=== PATIENT | female | born 1980 | race Caucasian/White ===

== ENCOUNTER 2016-06-06 21:24 | Inpatient (IN) | payer BC ==
[2016-06-06] MEDS ORDERED: cloNIDine HCL 0.2 MG TAB PO STA (21:48)
[2016-06-06] MEDS ORDERED: HYDROcodone/APAP 5-325MG 1 EACH TAB PO STA (21:48)
--- NOTE | 2016-06-06 21:52 | ED ---
General Adult HPI - General Source: patient, RN notes reviewed Mode of arrival: ambulatory Limitations: no limitations <North Chambers - Last Filed: 06/06/16 23:37> <Riaz Almaguer - Last Filed: 06/07/16 00:23> - General Chief complaint: Extremity Injury, Upper Stated complaint: dialysis graft Rt arm Time Seen by Provider: 06/06/16 21:36 - History of Present Illness Initial comments: Patient's 35-year-old female who presents emergency room today with a chief complaint of increased pain to the right upper extremity. She does admit to a history of a shunt for dialysis. States she had dialysis performed yesterday. This was no problems. States she had some mild aching in his arm yesterday. States it is increased and throbbing type pain today. Currently rates an 8/10. Patient states she tried to follow-up with her vascular surgeon but was unable to get a hold of them. She does admit that her blood pressure is elevated but she did take her blood pressure medication. She states she does not like coming to Hospital his blood pressure always is high when she comes to Hospital or doctor's office. Patient denies any recent fever, chills, shortness of breath, chest pain, back pain, abdominal pain, nausea or vomiting, numbness or tingling, dysuria or hematuria, constipation or diarrhea, headaches or visual changes, or any other complaints. (North Chambers) - Related Data Home Medications Medication Instructions Recorded Confirmed Omeprazole [PriLOSEC] 20 mg PO DAILY 04/27/14 06/06/16 Furosemide [Lasix] 40 mg PO DAILY 04/06/15 06/06/16 rOPINIRole HCL 0.5 mg PO HS PRN 04/06/15 06/06/16 Carvedilol [Coreg] 12.5 mg PO BID 06/06/16 06/06/16 Levothyroxine Sodium [Synthroid] 300 mcg PO DAILY 06/06/16 06/06/16 rOPINIRole HCL [Requip] 0.5 mg PO TID PRN 06/06/16 06/06/16 rOPINIRole HCL [Requip] 1 mg PO HS PRN 06/06/16 06/06/16 traZODone HCL 50 mg PO HS PRN 06/06/16 06/06/16 Previous Rx's Medication Instructions Recorded Lisinopril [Zestril] 20 mg PO DAILY #1 tab 04/08/15 Allergies Allergy/AdvReac Type Severity Reaction Status Date / Time Sulfa (Sulfonamide Allergy Severe Anaphylaxis Verified 06/06/16 22:04 Antibiotics) Penicillins Allergy Intermediate Rash/Hives/ Verified 06/06/16 22:04 Nausea/Vomi ting Review of Systems ROS Other: All systems not noted in ROS Statement are negative. <North Chambers - Last Filed: 06/06/16 23:37> ROS Other: All systems not noted in ROS Statement are negative. <Riaz Almaguer - Last Filed: 06/07/16 00:23> ROS Statement: Those systems with pertinent positive or pertinent negative responses have been documented in the HPI. Past Medical History Past Medical History: Blood Disorder, Cancer, Diabetes Mellitus, GERD/Reflux, Hyperlipidemia, Hypertension, Pneumonia, Renal Disease, Thyroid Disorder Additional Past Medical History / Comment(s): used to do peritoneal dialysis but had complication where fluid went into lungs, now does hemodialysis Sun-Sun- Sun, hx. 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 THOROCENTESIS June 2014 Past Anesthesia/Blood Transfusion Reactions: Motion Sickness, Postoperative Nausea & Vomiting (PONV) Past Psychological History: Anxiety Additional Psychological History / Comment(s): XANAX NEEDED Smoking Status: Never smoker Past Alcohol Use History: None Reported Past Drug Use History: None Reported - Past Family History Father Family Medical History: Coronary Artery Disease (CAD), Diabetes Mellitus, Myocardial Infarction ([place]) Additional Family Medical History / Comment(s): AT AGE 59-[place] Mother Family Medical History: Diabetes Mellitus <North Chambers - Last Filed: 06/06/16 23:37> General Exam Limitations: no limitations <North Chambers - Last Filed: 06/06/16 23:37> General appearance: alert, in no apparent distress Head exam: Present: atraumatic, normocephalic, normal inspection Eye exam: Present: normal appearance, PERRL, EOMI. Absent: scleral icterus, conjunctival injection, periorbital swelling ENT exam: Present: normal exam, mucous membranes moist Neck exam: Present: normal inspection. Absent: tenderness, meningismus, lymphadenopathy Respiratory exam: Present: normal lung sounds bilaterally. Absent: respiratory distress, wheezes, rales, rhonchi, stridor Cardiovascular Exam: Present: regular rate, normal rhythm, normal heart sounds. Absent: systolic murmur, diastolic murmur, rubs, gallop, clicks GI/Abdominal exam: Present: soft, normal bowel sounds. Absent: distended, tenderness, guarding, rebound, rigid Extremities exam: Present: normal inspection, full ROM, normal capillary refill. Absent: tenderness, pedal edema, joint swelling, calf tenderness Back exam: Present: normal inspection Neurological exam: Present: alert, oriented X3, CN II-XII intact Psychiatric exam: Present: normal affect, normal mood Skin exam: Present: warm, dry, intact, normal color. Absent: rash <Riaz Almaguer - Last Filed: 06/07/16 00:23> - General Exam Comments Initial Comments: General: The patient is awake and alert, in no distress, and does not appear acutely ill. Eye: Pupils are equal, round and reactive to light, extra-ocular movements are intact. No nystagmus. There is normal conjunctiva bilaterally. No signs of icterus. Ears, nose, mouth and throat: There are moist mucous membranes and no oral lesions. Neck: The neck is supple, there is no tenderness or JVD. Cardiovascular: There is a regular rate and rhythm. No murmur, rub or gallop is appreciated. Respiratory: Lungs are clear to auscultation, respirations are non-labored, breath sounds are equal. No wheezes, stridor, rales, or rhonchi. Gastrointestinal: Soft, non-distended, non-tender abdomen without masses or organomegaly noted. There is no rebound or guarding present. No CVA tenderness. Bowel sounds are unremarkable. Musculoskeletal: Normal ROM, no tenderness. Strength 5/5. Sensation intact. Pulses equal bilaterally 2+. Neurological: A&O x 3. CN II-XII intact, There are no obvious motor or sensory deficits. Coordination appears grossly intact. Speech is normal. Skin: There is mild redness around the shunt straight to the volar aspect of the right forearm. There is no lymphangitic streaking. Mild warmth to the area. Psychiatric: Cooperative, appropriate mood & affect, normal judgment. (North Chambers) Course <North Chambers - Last Filed: 06/06/16 23:37> <Riaz Almaguer - Last Filed: 06/07/16 00:23> Vital Signs 06/06/16 06/06/16 06/06/16 21:29 21:58 22:19 Temperature 98.4 F Pulse Rate 74 73 82 Respiratory 20 18 16 Rate Blood Pressure 240/105 202/83 196/83 O2 Sat by Pulse 97 99 98 Oximetry 06/06/16 23:15 Temperature Pulse Rate 84 Respiratory 16 Rate Blood Pressure 177/78 O2 Sat by Pulse 99 Oximetry - Reevaluation(s) Reevaluation #1: 06/07/16 00:23 Patient is currently in no distress (Riaz Almaguer) Medical Decision Making <North Chambers - Last Filed: 06/06/16 23:37> <Riaz Almaguer - Last Filed: 06/07/16 00:23> - Medical Decision Making Case discussed in detail with attending physician Dr. Almaguer. Patient's ultrasound of the right upper extremity does show evidence for a blood clot. Patient will be started on heparin here in the emergency room. Will be admitted to classified copy control clerk Dr. Hills she just sees a retort setter. Nephrology will be consult along with vascular surgeon. Patient wear the plan states understanding. (North Chambers) 35-year-old year for evaluation fistula pain. Redness. Patient possibly has DVT of that extremity, patient will be admitted for both vascular nephrology evaluate. (Riaz Almaguer) Disposition Time of Disposition: 23:39 <North Chambers - Last Filed: 06/06/16 23:37> <Riaz Almaguer - Last Filed: 06/07/16 00:23> Clinical Impression: DVT (deep venous thrombosis) Disposition: ADMITTED IP TO THIS [facility] Condition: Stable Referrals: None,Stated [Primary Care Provider] - 1-2 days
[2016-06-06] MEDS ORDERED: cloNIDine HCL 0.1 MG TAB PO STA (22:01)
--- NOTE | 2016-06-06 23:13 | US ---
EXAM: US Duplex Right Upper Extremity Veins CLINICAL HISTORY: Reason: Pain TECHNIQUE: Real-time ultrasound scan of the veins of the right upper extremity with color Doppler flow, spectral waveform analysis and compression. COMPARISON: No relevant prior studies available. FINDINGS: Deep veins: Unremarkable. No DVT in the internal jugular, subclavian, axillary, or brachial veins. The veins are compressible with normal color flow and augmentation. Superficial veins: There is occlusive thrombus seen within the cephalic vein, at and extending superior and inferior to the AV graft that itself appears to be patent where imaged. Soft tissues: No acute findings. IMPRESSION: Occlusive thrombosis of the cephalic vein at and extending superior and inferior to the level of the AV graft. [employer] 06/06/16 23:18 Call Doctor Regarding Above results, called Dr. Hui on 06/06 23:18 (-04:00)
[2016-06-06 23:15] VITALS: RESP 16
[2016-06-06] MEDS ORDERED: HEPARIN SODIUM,PORCINE 5,000 UNIT/ML 1 ML VIAL IV STA (23:33)
[2016-06-06] MEDS ORDERED: HYDROmorphone 1 MG/ML 1 ML SYRINGE IV PRN (23:41)
[2016-06-06] MEDS ORDERED: ONDANSETRON 4 MG/2 ML VIAL IVP PRN (23:41)
[2016-06-06] MEDS ORDERED: HYDROcodone/APAP 5-325MG 1 EACH TAB PO PRN (23:41)
[2016-06-06] MEDS ORDERED: SODIUM CHLORIDE 0.9% 1,000 ML IV ONE (23:41)
[2016-06-06] MEDS ORDERED: NALOXONE 0.4 MG/ML 1 ML VIAL IV PRN (23:41)
[2016-06-06] MEDS ORDERED: ACETAMINOPHEN TAB 325 MG TAB PO PRN (23:41)
[2016-06-07 00:16] LABS: Potassium 4.5 mmol/L (3.5-5.1); Total Bilirubin 1.7 mg/dL (0.2-1.3); Total Protein 7.2 g/dL (6.3-8.2)
[2016-06-07 00:21] LABS: Basophils % (A) 1 %; CH 30.5; CHCM 33.7; Eosinophils # (A) 0.1 k/uL (0-0.7); Eosinophils % (A) 4 %; HCT 27.4 % (34.0-46.0); HDW 3.48; HGB 9.4 gm/dL (11.4-16.0); Luc # (Auto) 0.07; Luc % (Auto) 3; Lymphocytes # (A) 0.3 k/uL (1.0-4.8); Lymphocytes % (A) 10 %; MCH 31.2 pg (25.0-35.0); MCHC 34.5 g/dL (31.0-37.0); MCV 90.6 fL (80.0-100.0); Mean Platelet Volume 8.8; Monocytes # (A) 0.2 k/uL (0-1.0); Monocytes % (A) 7 %; Neutrophils # (A) 2.1 k/uL (1.3-7.7); Neutrophils % (A) 77 %; Poikilocytosis Slight; RBC 3.02 m/uL (3.80-5.40); RDW 15.3 % (11.5-15.5); WBC 2.7 k/uL (3.8-10.6); WBC (Perox) 2.77
[2016-06-07 00:23] LABS: INR 1.1 (<1.1); Partial Thromboplastin Time 24.7 sec (22.0-30.0); Prothrombin Time 11.2 sec (9.0-12.0)
[2016-06-07] MEDS: HEPARIN SODIUM,PORCINE/D5W PMX 25,000 UNIT in DEXTROSE/WATER 1 500ML.BAG IV SCH ×2 (01:06→01:44)
[2016-06-07 07:57] VITALS: BP 172/84; PULSE 62; TEMP 97.1
[2016-06-07 09:28] LABS: Basophils % (A) 0 %; CH 29.6; CHCM 32.1; Eosinophils # (A) 0.1 k/uL (0-0.7); Eosinophils % (A) 5 %; HCT 29.7 % (34.0-46.0); HDW 3.32; HGB 9.8 gm/dL (11.4-16.0); Hypochromasia Slight; Luc # (Auto) 0.08; Luc % (Auto) 4; Lymphocytes # (A) 0.2 k/uL (1.0-4.8); Lymphocytes % (A) 12 %; MCH 30.5 pg (25.0-35.0); MCHC 32.9 g/dL (31.0-37.0); MCV 92.5 fL (80.0-100.0); Mean Platelet Volume 7.7; Monocytes # (A) 0.2 k/uL (0-1.0); Monocytes % (A) 8 %; Neutrophils # (A) 1.5 k/uL (1.3-7.7); Neutrophils % (A) 71 %; RBC 3.21 m/uL (3.80-5.40); RDW 15.4 % (11.5-15.5); WBC 2.1 k/uL (3.8-10.6); WBC (Perox) 2.13
[2016-06-07 09:48] LABS: Calcium 8.3 mg/dL (8.4-10.2); Potassium 4.9 mmol/L (3.5-5.1); Total Bilirubin 1.8 mg/dL (0.2-1.3); Total Protein 7.4 g/dL (6.3-8.2)
--- NOTE | 2016-06-07 10:42 | CONS ---
DATE OF CONSULTATION: 06/07/2016 Patient came to the emergency room last night with history of discomfort and pain right upper arm. This patient had a fistula placed about 3 years ago at [facility]. She has been coming to dialysis in [place]. MEDICAL HISTORY: History of chronic renal failure, history of multiple myeloma in the past and patient had a bone marrow transplant. On examination, patient was seen in her room. Her neck is supple. Trachea central. Chest clear. ABDOMEN: Soft. The patient has a loop [place] graft right forearm. There is a good thrill present. The patient had ultrasound which showed there is a clot in the cephalic vein. We will discuss with nephrology. INEZ
[2016-06-07] MEDS ORDERED: traZODone HCL 50 MG TAB PO PRN (11:34)
[2016-06-07] MEDS ORDERED: CARVEDILOL 12.5 MG TAB PO SCH (11:45)
[2016-06-07] MEDS ORDERED: LISINOPRIL 20 MG TAB PO SCH (11:45)
[2016-06-07] MEDS ORDERED: FUROSEMIDE 40 MG TAB PO SCH (11:45)
[2016-06-07] MEDS ORDERED: LEVOTHYROXINE 100 MCG TAB PO SCH (11:45)
[2016-06-07] MEDS ORDERED: PANTOPRAZOLE 40 MG TABLET PO SCH (12:00)
--- NOTE | 2016-06-07 14:42 | P.DS ---
Providers Date of admission: 06/07/16 00:47 Expected date of discharge: 06/07/16 Attending physician: Grupo Cherry Primary care physician: Stated None Hospital Course: Patient's 35-year-old female who presents emergency room today with a chief complaint of increased pain to the right upper extremity. She does admit to a history of a shunt for dialysis. States she had dialysis performed yesterday. This was no problems. States she had some mild aching in his arm yesterday. States it is increased and throbbing type pain today. Currently rates an 8/10. Patient states she tried to follow-up with her vascular surgeon but was unable to get a hold of them. She does admit that her blood pressure is elevated but she did take her blood pressure medication. She states she does not like coming to Hospital her blood pressure always is high when she comes to Hospital or doctor's office pressure was elevated in the emergency room 240/105 Patient denies any recent fever, chills, shortness of breath, chest pain, back pain, abdominal pain, nausea or vomiting, numbness or tingling, dysuria or hematuria, constipation or diarrhea, headaches or visual changes, or any other complaints. Patient additionally seen by Dr. Mainor french. Ultrasound was obtained of the right forearm in which a good thrill was present. The ultrasound did show a clot in the cephalic vein Patient had a fistula placed about 3 years ago at [facility]. Patient had been coming to [facility]. Patient has a history of chronic renal failure. 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 Luz Martin nurse practitioner acting as a scribe for dr cherry Patient Condition at Discharge: Stable Plan - Discharge Summary Discharge Medication List Omeprazole [PriLOSEC] 20 mg PO DAILY 04/27/14 [History] Furosemide [Lasix] 40 mg PO DAILY 04/06/15 [History] rOPINIRole HCL 0.5 mg PO HS PRN 04/06/15 [History] Lisinopril [Zestril] 20 mg PO DAILY #1 tab 04/08/15 [Rx] Carvedilol [Coreg*] 12.5 mg PO BID 06/06/16 [History] Levothyroxine Sodium [Synthroid] 300 mcg PO DAILY 06/06/16 [History] rOPINIRole HCL [Requip] 0.5 mg PO TID PRN 06/06/16 [History] rOPINIRole HCL [Requip] 1 mg PO HS PRN 06/06/16 [History] traZODone HCL 50 mg PO HS PRN 06/06/16 [History] Follow up Appointment(s)/Referral(s): None,Stated [Primary Care Provider] - 1-2 days Discharge Disposition: DC/TRNS INTERMEDIATE CARE FAC
--- NOTE | 2016-06-07 16:13 | HP ---
DATE OF ADMISSION: CHIEF COMPLAINT: Clot in the right arm. HISTORY OF PRESENT ILLNESS: This is another admission for this 35-year-old white female. She is not a regular patient. She apparently has amyloidosis which has resulted in renal failure. She is on dialysis. She noticed some pain, swelling and hardness in the right antecubital space and came to the emergency room, where she was found to have a phlebitis or clot in the right arm. She is due for dialysis today. She has had 6 pregnancies, 2 children and 4 miscarriages. REVIEW OF SYSTEMS: She has had no headaches, chest pain, shortness of breath, abdominal pain, nausea, vomiting, diarrhea, melena, etc. Past medical history, family history, and personal and social histories reveal she is ALLERGIC TO PENICILLIN AND SULFA. MEDICATIONS: 1. Prilosec. 2. Lisinopril. 3. Carvedilol. 4. Lasix. 5. Thyroid. SURGERIES: 1. T&A. 2. Thoracentesis. 3. Thyroidectomy. 4. Two C-sections. 5. Stem cell transplant. She does not smoke. She drinks only occasionally. Her primary disease is amyloidosis. PHYSICAL EXAMINATION: Blood pressure is 103/56 with a pulse of 88, respirations of 35, and she is afebrile. In general she appears to be chronically ill. Lymph nodes are not enlarged. Head, ears, eyes, nose, mouth and throat are normal. Neck veins are not distended. Thyroid is not enlarged. Chest is clear. Cardiac exam demonstrates what sounds like sinus rhythm. No murmurs or extra sounds. Abdomen is soft, nontender. Extremities are normal except for the right arm, where she has a shunt. It is not clear exactly where this clot is clinically, but it may be in the antecubital space. IMPRESSION: 1. Thrombosed dialysis shunt in the right arm. 2. Amyloidosis. PLAN: Consult with Vascular Surgery and Nephrology.
--- NOTE | 2016-06-08 07:15 | CONS ---
DATE OF CONSULTATION: REASON FOR CONSULT: Endstage renal disease. HISTORY OF PRESENT ILLNESS: Patient is a 35-year-old female with history of endstage renal disease on hemodialysis on a Sunday, Sunday, Sunday schedule. She was admitted to the hospital with pain in her right arm which is her access arm. Pain started 2 days ago and progressively worsened and therefore, patient came in to the hospital. She had venous Dopplers done of her left arm which showed occluded thrombosis of the cephalic vein at the level of the AV graft. Patient's vascular surgeon is Dr. Marilyn De La Vega out of [facility] and she will be transferred there for vascular care. PAST MEDICAL HISTORY: Endstage renal disease, history of amyloidosis, status post chemotherapy and stem-cell transplant, history of thyroid cancer, metabolic bone disease. PAST SURGICAL HISTORY: Adenoidectomy, , tonsillectomy, kidney mass biopsy, thyroidectomy, ovarian cyst surgery, thoracentesis, PD catheter placement and removal, AV graft in the right arm. Social history is negative for smoking, drug abuse or alcohol abuse. REVIEW OF SYSTEMS: As per HPI. Other systems negative. On examination, patient is comfortable, awake, alert, oriented x3. She is not in any acute distress. BARREL LOADER exam is grossly intact. Labs show sodium 138, potassium 4.9, BUN 70, serum creatinine 7.29, hemoglobin 9.8 g/dL, platelet cell count 28,000. ASSESSMENT: 1. End-stage renal disease on hemodialysis on a Sunday, Sunday, Sunday schedule. Patient will be dialyzed once she has been evaluated by Vascular Surgery from her AV graft standpoint. 2. Pain in her right arm, which is the access arm with evidence of thrombosis in the cephalic vein on venous Dopplers. Patient will be transferred to [facility] for evaluation by her primary vascular surgeon who is Dr. De La Vega. 3. Thrombocytopenia, which is chronic. 4. Amyloidosis, status post stem-cell transplant. Awaiting kidney transplant. PLAN: Transfer patient to [facility].
--- NOTE | 2016-06-08 07:24 | DS ---
DATE OF ADMISSION: 06/07/2016 DATE OF DISCHARGE: 06/07/2016 This patient was admitted to the hospital with thrombosis in the right arm as part of her fistula for her dialysis. She was assessed and it was determined that she should be transferred back to [place] for surgical intervention and possible thrombectomy. The arrangements were made by the nurse practitioner and she was transferred down the afternoon of the .
== END 2016-06-07 15:48 | disposition short-term general hospital (02) | DRG 314 ==
LOC: EC 21:24 → 4MS4W 06-07 00:47
PROVIDERS: ADMIT Family Medicine; ATTEND Family Medicine
DX: T82.868A Thrombosis due to vascular prosthetic devices, implants and grafts, initial encounter (principal); N18.6 End stage renal disease; I12.0 Hypertensive chronic kidney disease with stage 5 chronic kidney disease or end stage renal disease; E85.9 Amyloidosis, unspecified; Z94.84 Stem cells transplant status; Z76.82 Awaiting organ transplant status; E11.22 Type 2 diabetes mellitus with diabetic chronic kidney disease; D69.6 Thrombocytopenia, unspecified; E78.5 Hyperlipidemia, unspecified; F41.9 Anxiety disorder, unspecified; K21.9 Gastro-esophageal reflux disease without esophagitis; E07.9 Disorder of thyroid, unspecified; Z92.21 Personal history of antineoplastic chemotherapy; Z99.2 Dependence on renal dialysis; Z82.49 Family history of ischemic heart disease and other diseases of the circulatory system; Z79.899 Other long term (current) drug therapy; Z85.850 Personal history of malignant neoplasm of thyroid; Z85.79 Personal history of other malignant neoplasms of lymphoid, hematopoietic and related tissues; Y84.1 Kidney dialysis as the cause of abnormal reaction of the patient, or of later complication, without mention of misadventure at the time of the procedure; Y92.009 Unspecified place in unspecified non-institutional (private) residence as the place of occurrence of the external cause
CPT/HCPCS: 36415; 80053; 85025; 85610; 85730

== ENCOUNTER 2016-07-30 00:11 | Inpatient (IN) | payer BC ==
[2016-07-30] MEDS ORDERED: PANTOPRAZOLE 40 MG/10 ML VIAL IVP STA (01:05)
--- NOTE | 2016-07-30 01:08 | ED ---
General Adult HPI - General Chief complaint: GI Bleed Stated complaint: Blood in Vomit & Stool Time Seen by Provider: 07/30/16 00:50 Source: patient, RN notes reviewed Mode of arrival: ambulatory Limitations: no limitations - History of Present Illness Initial comments: Patient is a pleasant 35-year-old female presenting to the emergency department for concerns regarding GI bleed. Patient did have one episode of bloody emesis with clots and has had 3 episodes of bloody diarrhea with clots. No abdominal pain. Patient had mild nausea earlier however that has resolved. 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 No weakness or fatigue. No dyspnea. - Related Data Home Medications Medication Instructions Recorded Confirmed Omeprazole [PriLOSEC] 20 mg PO DAILY 04/27/14 06/06/16 Furosemide [Lasix] 40 mg PO DAILY 04/06/15 06/06/16 rOPINIRole HCL 0.5 mg PO HS PRN 04/06/15 06/06/16 Carvedilol [Coreg*] 12.5 mg PO BID 06/06/16 06/06/16 Levothyroxine Sodium [Synthroid] 300 mcg PO DAILY 06/06/16 06/06/16 rOPINIRole HCL [Requip] 0.5 mg PO TID PRN 06/06/16 06/06/16 rOPINIRole HCL [Requip] 1 mg PO HS PRN 06/06/16 06/06/16 traZODone HCL 50 mg PO HS PRN 06/06/16 06/06/16 Previous Rx's Medication Instructions Recorded Lisinopril [Zestril] 20 mg PO DAILY #1 tab 04/08/15 Allergies Allergy/AdvReac Type Severity Reaction Status Date / Time Sulfa (Sulfonamide Allergy Severe Anaphylaxis Verified 07/30/16 00:17 Antibiotics) Penicillins Allergy Intermediate Rash/Hives/ Verified 07/30/16 00:17 Nausea/Vomi ting Review of Systems ROS Statement: Those systems with pertinent positive or pertinent negative responses have been documented in the HPI. ROS Other: All systems not noted in ROS Statement are negative. Constitutional: Denies: fever Eyes: Denies: eye pain ENT: Denies: ear pain Respiratory: Denies: cough Cardiovascular: Denies: chest pain Endocrine: Denies: fatigue Gastrointestinal: Reports: hematemesis, hematochezia. Denies: abdominal pain Genitourinary: Denies: dysuria Musculoskeletal: Denies: back pain Skin: Denies: rash Neurological: Denies: weakness Past Medical History Past Medical History: Blood Disorder, Cancer, Diabetes Mellitus, GERD/Reflux, Hyperlipidemia, Hypertension, Pneumonia, Renal Disease, Thyroid Disorder Additional Past Medical History / Comment(s): used to do peritoneal dialysis but had complication where fluid went into lungs, now does hemodialysis Sun-Sun- Sun, hx. 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 THOROCENTESIS June 2014 Past Anesthesia/Blood Transfusion Reactions: Motion Sickness, Postoperative Nausea & Vomiting (PONV) Past Psychological History: Anxiety Smoking Status: Never smoker Past Alcohol Use History: None Reported Past Drug Use History: None Reported - Past Family History Father Family Medical History: Coronary Artery Disease (CAD), Diabetes Mellitus, Myocardial Infarction ([place]) Additional Family Medical History / Comment(s): AT AGE 59-[place] Mother Family Medical History: Diabetes Mellitus General Exam Limitations: no limitations General appearance: alert, in no apparent distress Head exam: Present: atraumatic Eye exam: Present: normal appearance, PERRL ENT exam: Present: normal oropharynx Neck exam: Present: normal inspection Respiratory exam: Present: normal lung sounds bilaterally Cardiovascular Exam: Present: regular rate, normal rhythm GI/Abdominal exam: Present: soft. Absent: tenderness Extremities exam: Present: normal inspection Neurological exam: Present: alert Psychiatric exam: Present: normal affect, normal mood Skin exam: Present: normal color Course Vital Signs 07/30/ 00:15 Temperature 98.8 F Pulse Rate 78 Respiratory 20 Rate Blood Pressure 170/73 O2 Sat by Pulse 100 Oximetry Medical Decision Making - Medical Decision Making Patient reevaluated and resting comfortably in bed. Patient updated on results and plan. Case was discussed with Dr. Epstein who will consult. No transfusions at this time. Case also discussed with Dr. Yang, who will admit for medical call with consult for Dr. Silverio - Lab Data Result diagrams: 07/30/16 01:00 07/30/16 01:00 Lab Results 07/30/16 07/30/16 07/30/16 Range/Units 01:00 01:00 01:00 WBC 2.8 L (3.8-10.6) k/uL RBC 2.75 L (3.80-5.40) m/uL Hgb 8.0 L D (11.4-16.0) gm/dL Hct 24.5 L (34.0-46.0) % MCV 89.2 (80.0-100.0) fL MCH 29.2 (25.0-35.0) pg MCHC 32.7 (31.0-37.0) g/dL RDW 17.0 H (11.5-15.5) % Plt Count 33 L* (150-450) k/uL Neutrophils % 82 % Lymphocytes % 9 % Monocytes % 5 % Eosinophils % 2 % Basophils % 1 % Neutrophils # 2.3 (1.3-7.7) k/uL Lymphocytes # 0.3 L (1.0-4.8) k/uL Monocytes # 0.1 (0-1.0) k/uL Eosinophils # 0.1 (0-0.7) k/uL Basophils # 0.0 (0-0.2) k/uL Manual Slide Review Performed Hypochromasia Slight Poikilocytosis Slight Anisocytosis Slight PT (9.0-12.0) sec INR (<1.1) APTT (22.0-30.0) sec Sodium 137 (137-145) mmol/L Potassium 5.9 H (3.5-5.1) mmol/L Chloride 97 L (98-107) mmol/L Carbon Dioxide 26 (22-30) mmol/L Anion Gap 14 mmol/L BUN 60 H (7-17) mg/dL Creatinine 5.80 H* (0.52-1.04) mg/dL Est GFR (MDRD) Af Amer 10 (>60 ml/min/1.73 sqM) Est GFR (MDRD) Non-Af 8 (>60 ml/min/1.73 sqM) Glucose 184 H (74-99) mg/dL Calcium 7.8 L (8.4-10.2) mg/dL Total Bilirubin 1.4 H (0.2-1.3) mg/dL AST 32 (14-36) U/L ALT 41 (9-52) U/L Alkaline Phosphatase 197 H (38-126) U/L Total Creatine Kinase 33 (30-135) U/L Total Protein 6.6 (6.3-8.2) g/dL Albumin 3.5 (3.5-5.0) g/dL Blood Type Blood Type Recheck Antibody Screen Spec Expiration Date 07/30/16 07/30/16 Range/Units 01:00 01:00 WBC (3.8-10.6) k/uL RBC (3.80-5.40) m/uL Hgb (11.4-16.0) gm/dL Hct (34.0-46.0) % MCV (80.0-100.0) fL MCH (25.0-35.0) pg MCHC (31.0-37.0) g/dL RDW (11.5-15.5) % Plt Count (150-450) k/uL Neutrophils % % Lymphocytes % % Monocytes % % Eosinophils % % Basophils % % Neutrophils # (1.3-7.7) k/uL Lymphocytes # (1.0-4.8) k/uL Monocytes # (0-1.0) k/uL Eosinophils # (0-0.7) k/uL Basophils # (0-0.2) k/uL Manual Slide Review Hypochromasia Poikilocytosis Anisocytosis PT 11.8 (9.0-12.0) sec INR 1.2 (<1.1) APTT 24.4 (22.0-30.0) sec Sodium (137-145) mmol/L Potassium (3.5-5.1) mmol/L Chloride (98-107) mmol/L Carbon Dioxide (22-30) mmol/L Anion Gap mmol/L BUN (7-17) mg/dL Creatinine (0.52-1.04) mg/dL Est GFR (MDRD) Af Amer (>60 ml/min/1.73 sqM) Est GFR (MDRD) Non-Af (>60 ml/min/1.73 sqM) Glucose (74-99) mg/dL Calcium (8.4-10.2) mg/dL Total Bilirubin (0.2-1.3) mg/dL AST (14-36) U/L ALT (9-52) U/L Alkaline Phosphatase (38-126) U/L Total Creatine Kinase (30-135) U/L Total Protein (6.3-8.2) g/dL Albumin (3.5-5.0) g/dL Blood Type O Positive Blood Type Recheck No Antibody Screen NEGATIVE Spec Expiration Date 08/02/2016 - 2299 Disposition Clinical Impression: GI hemorrhage Disposition: ADMITTED IP TO THIS HOSP Referrals: None,Stated [Primary Care Provider] - 1-2 days Decision Time: 02:15
[2016-07-30 01:29] LABS: Anisocytosis Slight; Basophils % (A) 1 %; CH 28.5; CHCM 32.1; Eosinophils # (A) 0.1 k/uL (0-0.7); Eosinophils % (A) 2 %; HCT 24.5 % (34.0-46.0); HDW 3.56; Hypochromasia Slight; Luc # (Auto) 0.05; Luc % (Auto) 2; Lymphocytes # (A) 0.3 k/uL (1.0-4.8); Lymphocytes % (A) 9 %; MCH 29.2 pg (25.0-35.0); MCHC 32.7 g/dL (31.0-37.0); MCV 89.2 fL (80.0-100.0); Mean Platelet Volume 8.9; Monocytes # (A) 0.1 k/uL (0-1.0); Monocytes % (A) 5 %; Neutrophils # (A) 2.3 k/uL (1.3-7.7); Neutrophils % (A) 82 %; Poikilocytosis Slight; RBC 2.75 m/uL (3.80-5.40); WBC 2.8 k/uL (3.8-10.6); WBC (Perox) 3.07
[2016-07-30 01:35] LABS: Calcium 7.8 mg/dL (8.4-10.2); INR 1.2 (<1.1); Partial Thromboplastin Time 24.4 sec (22.0-30.0); Potassium 5.9 mmol/L (3.5-5.1); Prothrombin Time 11.8 sec (9.0-12.0); Total Bilirubin 1.4 mg/dL (0.2-1.3); Total Protein 6.6 g/dL (6.3-8.2)
[2016-07-30 02:02] LABS: Manual Review Performed
[2016-07-30 02:15] LABS: Creatine Kinase MB 0.4 ng/mL (0.0-2.4)
[2016-07-30] MEDS ORDERED: NALOXONE 0.4 MG/ML 1 ML VIAL IV PRN (02:15)
[2016-07-30 02:16] LABS: Troponin I 0.04 ng/mL (0.000-0.034)
[2016-07-30 02:23] VITALS: RESP 16
[2016-07-30 03:18] VITALS: BMI 30.2
[2016-07-30] MEDS: SODIUM CHLORIDE 0.9% 1,000 ML IV SCH ×2 (04:25→15:12)
[2016-07-30 07:23] LABS: Anisocytosis Slight; Basophils % (A) 0 %; CH 28.4; CHCM 31.8; Eosinophils # (A) 0.1 k/uL (0-0.7); Eosinophils % (A) 3 %; HCT 21.2 % (34.0-46.0); HDW 3.41; Hypochromasia Slight; Luc # (Auto) 0.06; Luc % (Auto) 2; Lymphocytes # (A) 0.3 k/uL (1.0-4.8); Lymphocytes % (A) 11 %; MCH 29.7 pg (25.0-35.0); MCHC 33.1 g/dL (31.0-37.0); MCV 89.7 fL (80.0-100.0); Monocytes # (A) 0.2 k/uL (0-1.0); Monocytes % (A) 6 %; Neutrophils % (A) 78 %; Poikilocytosis Slight; RBC 2.36 m/uL (3.80-5.40); WBC 2.5 k/uL (3.8-10.6); WBC (Perox) 2.53
[2016-07-30] MEDS: PANTOPRAZOLE 40 MG/10 ML VIAL IV SCH ×2 (09:54→21:37)
[2016-07-30 10:37] LABS: Potassium 5.2 mmol/L (3.5-5.1)
--- NOTE | 2016-07-30 11:05 | P.NPCON ---
History of Present Illness - Reason for Consult end stage renal disease - History of Present Illness Reason for consultation: End-stage renal disease History of present illness: Patient is a 35-year-old female seen in renal consultation for end-stage renal disease. She is maintained on hemodialysis on a Sunday schedule. Patient has history of amyloidosis and has undergone stem cell transplant 2 years ago at [facility] in [place], [place]. Patient states she was feeling well up until yesterday evening when she went to the bathroom and noticed bloody bowel movement. Afterwards she felt nauseous and also developed hematemesis. Her hemoglobin was 8.0 on admission and is down to 7.0 this morning. Her potassium level was also elevated at 5.9 and is 5.2 this morning. She denies any chest pain or shortness of breath. She is currently on a clear liquid diet and is tolerating it well. She had a bowel movement last night which was again bloody in nature. Hemodynamically she is stable. No fever or chills. Vital signs are stable. General: The patient appeared well nourished and normally developed. HEENT: Head exam is unremarkable. Neck is without jugular venous distension. LUNGS: Lungs are clear to auscultation and percussion. Breath sounds decreased. HEART: Rate and Rhythm are regular. First and second heart sounds normal. No murmurs, rubs or gallops. ABDOMEN: Abdominal exam reveals normal bowel sounds. Non-tender and non- distended. No evidence of peritonitis. EXTREMITITES: No clubbing, cyanosis, or edema. Past Medical History Past Medical History: Blood Disorder, Cancer, Diabetes Mellitus, GERD/Reflux, Hyperlipidemia, Hypertension, Pneumonia, Renal Disease, Thyroid Disorder Additional Past Medical History / Comment(s): used to do peritoneal dialysis but had complication where fluid went into lungs, now does hemodialysis Sun-Sun- Sun, hx. 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 THOROCENTESIS June 2014 Past Anesthesia/Blood Transfusion Reactions: Motion Sickness, Postoperative Nausea & Vomiting (PONV) Past Psychological History: Anxiety Additional Psychological History / Comment(s): XANAX NEEDED Smoking Status: Never smoker Past Alcohol Use History: None Reported Past Drug Use History: None Reported - Past Family History Father Family Medical History: Coronary Artery Disease (CAD), Diabetes Mellitus, Myocardial Infarction ([place]) Additional Family Medical History / Comment(s): AT AGE 59-[place] Mother Family Medical History: Diabetes Mellitus Medications and Allergies Home Medications Medication Instructions Recorded Confirmed Type Omeprazole [PriLOSEC] 20 mg PO DAILY 04/27/14 07/30/16 History Furosemide [Lasix] 40 mg PO DAILY 04/06/15 07/30/16 History Carvedilol [Coreg*] 12.5 mg PO BID 06/06/16 07/30/16 History Levothyroxine Sodium [Synthroid] 300 mcg PO DAILY 06/06/16 07/30/16 History rOPINIRole HCL [Requip] 0.5 mg PO TID PRN 06/06/16 07/30/16 History rOPINIRole HCL [Requip] 1 mg PO HS PRN 06/06/16 07/30/16 History traZODone HCL 50 mg PO HS PRN 06/06/16 07/30/16 History Allergies Allergy/AdvReac Type Severity Reaction Status Date / Time Sulfa (Sulfonamide Allergy Severe Anaphylaxis Verified 07/30/16 10:14 Antibiotics) Penicillins Allergy Intermediate Rash/Hives/ Verified 07/30/16 10:14 Nausea/Vomi ting Physical Exam Vitals: Vital Signs Temp Pulse Pulse Resp BP BP Pulse Ox 07/30/16 08:00 82 16 07/30/16 07:00 98 F 82 16 152/77 100 07/30/16 04:22 98.2 F 75 16 157/86 93 L 07/30/16 02:00 97.8 F 73 16 175/79 99 07/30/16 00:15 98.8 F 78 20 170/73 100 Intake and Output 07/29/16 07/30/16 07/30/16 22:59 06:59 14:59 Intake Total 1220 Balance 1220 Intake: Intake, IV Titration 40 Amount Sodium Chloride 0.9% 1, 40 000 ml @ 75 mls/hr IV . [id number] SAKINA Rx#:[id number] Oral 1180 Other: Voiding Method Toilet Toilet # Voids 1 1 # Bowel Movements 1 Weight 74.843 kg 74.843 kg Patient Weight 07/31/16 06:59 Weight 74.843 kg Results - Lab Results Most recent lab results Calcium 7.8 mg/dL (8.4-10.2) L 07/30/16 01:00 07/30/16 06:30 07/30/16 06:30 Assessment and Plan Plan: Assessment: #1. End-stage renal disease maintained on hemodialysis on a Sunday schedule. #2. Acute anemia related to GI bleed. #3. Hyperkalemia secondary to chronic kidney disease and GI bleed. Potassium level 5.2 this morning. #4. Chronic kidney disease mineral bone disease. #5. History of amyloidosis status post stem cell transplant 2 years ago. Plan: Transfuse 1 unit of packed red blood cell today. Hemodialysis tomorrow with goal 2 liters ultrafiltration. Surgery evaluation pending. Continue to monitor hemoglobin. Thank you for the consultation. I will continue to follow the patient with you during her hospital stay.
[2016-07-30] MEDS ORDERED: traZODone HCL 50 MG TAB PO PRN (11:25)
[2016-07-30 12:11] LABS: Total Bilirubin 1.1 mg/dL (0.2-1.3)
[2016-07-30] MEDS: FUROSEMIDE 40 MG TAB PO SCH (12:14)
[2016-07-30] MEDS: CARVEDILOL 12.5 MG TAB PO SCH ×2 (12:14→16:48)
[2016-07-30] MEDS: LEVOTHYROXINE 100 MCG TAB PO SCH (12:14)
--- NOTE | 2016-07-30 12:34 | P.GSCN ---
History of Present Illness Consult date: 07/30/16 Reason for Consult: GI bleed History of present illness: This a 35-year-old female who is admitted to the hospital, complaints of GI bleed. Patient states that she had several large bloody bowel movements yesterday. She also had a small hematemesis yesterday as well. Patient states that she has not any significant bleeding while the hospital. Patient's previous history of stem cell transportation. She has chronic low platelets. Her platelets are 27. Review of Systems - Constitutional Reports as per HPI Past Medical History Past Medical History: Blood Disorder, Cancer, Diabetes Mellitus, GERD/Reflux, Hyperlipidemia, Hypertension, Pneumonia, Renal Disease, Thyroid Disorder Additional Past Medical History / Comment(s): used to do peritoneal dialysis but had complication where fluid went into lungs, now does hemodialysis Sun-Sun- Sun, hx. 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 THOROCENTESIS June 2014 Past Anesthesia/Blood Transfusion Reactions: Motion Sickness, Postoperative Nausea & Vomiting (PONV) Past Psychological History: Anxiety Additional Psychological History / Comment(s): XANAX NEEDED Smoking Status: Never smoker Past Alcohol Use History: None Reported Past Drug Use History: None Reported - Past Family History Father Family Medical History: Coronary Artery Disease (CAD), Diabetes Mellitus, Myocardial Infarction ([place]) Additional Family Medical History / Comment(s): AT AGE 59-[place] Mother Family Medical History: Diabetes Mellitus Medications and Allergies Home Medications Medication Instructions Recorded Confirmed Type Omeprazole [PriLOSEC] 20 mg PO DAILY 04/27/14 07/30/16 History Furosemide [Lasix] 40 mg PO DAILY 04/06/15 07/30/16 History Carvedilol [Coreg*] 12.5 mg PO BID 06/06/16 07/30/16 History Levothyroxine Sodium [Synthroid] 300 mcg PO DAILY 06/06/16 07/30/16 History rOPINIRole HCL [Requip] 0.5 mg PO TID PRN 06/06/16 07/30/16 History rOPINIRole HCL [Requip] 1 mg PO HS PRN 06/06/16 07/30/16 History traZODone HCL 50 mg PO HS PRN 06/06/16 07/30/16 History Allergies Allergy/AdvReac Type Severity Reaction Status Date / Time Sulfa (Sulfonamide Allergy Severe Anaphylaxis Verified 07/30/16 10:14 Antibiotics) Penicillins Allergy Intermediate Rash/Hives/ Verified 07/30/16 10:14 Nausea/Vomi ting Surgical - Exam Vital Signs Temp Pulse Resp BP Pulse Ox 98.8 F 78 20 170/73 100 07/30/16 00:15 07/30/16 00:15 07/30/16 00:15 07/30/16 00:15 07/30/16 00:15 - General well developed, no distress - Eyes PERRL - ENT normal pinna - Neck no masses - Respiratory normal expansion - Cardiovascular Rhythm: regular - Abdomen Abdomen: soft, non tender Results - Labs 07/30/16 06:30 07/30/16 06:30 Abnormal Lab Results - Last 24 Hours (Table) 07/30/16 07/30/16 07/30/16 Range/Units 01:00 01:00 01:00 WBC 2.8 L (3.8-10.6) k/uL RBC 2.75 L (3.80-5.40) m/uL Hgb 8.0 L D (11.4-16.0) gm/dL Hct 24.5 L (34.0-46.0) % RDW 17.0 H (11.5-15.5) % Plt Count 33 L* (150-450) k/uL Lymphocytes # 0.3 L (1.0-4.8) k/uL Potassium 5.9 H (3.5-5.1) mmol/L Chloride 97 L (98-107) mmol/L BUN 60 H (7-17) mg/dL Creatinine 5.80 H* (0.52-1.04) mg/dL Glucose 184 H (74-99) mg/dL Calcium 7.8 L (8.4-10.2) mg/dL Total Bilirubin 1.4 H (0.2-1.3) mg/dL Alkaline Phosphatase 197 H (38-126) U/L Troponin I 0.040 H* (0.000-0.034) ng/mL Crossmatch 07/30/16 07/30/16 07/30/16 Range/Units 01:00 06:30 06:30 WBC 2.5 L (3.8-10.6) k/uL RBC 2.36 L (3.80-5.40) m/uL Hgb 7.0 L* (11.4-16.0) gm/dL Hct 21.2 L (34.0-46.0) % RDW 17.0 H (11.5-15.5) % Plt Count 27 L* (150-450) k/uL Lymphocytes # 0.3 L (1.0-4.8) k/uL Potassium 5.2 H (3.5-5.1) mmol/L Chloride (98-107) mmol/L BUN (7-17) mg/dL Creatinine (0.52-1.04) mg/dL Glucose (74-99) mg/dL Calcium (8.4-10.2) mg/dL Total Bilirubin (0.2-1.3) mg/dL Alkaline Phosphatase (38-126) U/L Troponin I (0.000-0.034) ng/mL Crossmatch See Detail Diabetes panel 07/30/16 07/30/16 Range/Units 01:00 06:30 Sodium 137 (137-145) mmol/L Potassium 5.9 H 5.2 H (3.5-5.1) mmol/L Chloride 97 L (98-107) mmol/L Carbon Dioxide 26 (22-30) mmol/L BUN 60 H (7-17) mg/dL Creatinine 5.80 H* (0.52-1.04) mg/dL Glucose 184 H (74-99) mg/dL Calcium 7.8 L (8.4-10.2) mg/dL AST 32 (14-36) U/L ALT 41 (9-52) U/L Alkaline Phosphatase 197 H (38-126) U/L Total Protein 6.6 (6.3-8.2) g/dL Albumin 3.5 (3.5-5.0) g/dL Calcium panel 07/30/16 Range/Units 01:00 Calcium 7.8 L (8.4-10.2) mg/dL Albumin 3.5 (3.5-5.0) g/dL Pituitary panel 07/30/16 07/30/16 Range/Units 01:00 06:30 Sodium 137 (137-145) mmol/L Potassium 5.9 H 5.2 H (3.5-5.1) mmol/L Chloride 97 L (98-107) mmol/L Carbon Dioxide 26 (22-30) mmol/L BUN 60 H (7-17) mg/dL Creatinine 5.80 H* (0.52-1.04) mg/dL Glucose 184 H (74-99) mg/dL Calcium 7.8 L (8.4-10.2) mg/dL Adrenal panel 07/30/16 07/30/16 Range/Units 01:00 06:30 Sodium 137 (137-145) mmol/L Potassium 5.9 H 5.2 H (3.5-5.1) mmol/L Chloride 97 L (98-107) mmol/L Carbon Dioxide 26 (22-30) mmol/L BUN 60 H (7-17) mg/dL Creatinine 5.80 H* (0.52-1.04) mg/dL Glucose 184 H (74-99) mg/dL Calcium 7.8 L (8.4-10.2) mg/dL Total Bilirubin 1.4 H (0.2-1.3) mg/dL AST 32 (14-36) U/L ALT 41 (9-52) U/L Alkaline Phosphatase 197 H (38-126) U/L Total Protein 6.6 (6.3-8.2) g/dL Albumin 3.5 (3.5-5.0) g/dL Assessment and Plan Plan: Anel Munroe. Patient will undergo EGD and colonoscopy. She'll receive bowel prep today. I will have a Dr. Epstein address her platelet situation.
[2016-07-31 06:41] LABS: Anisocytosis Slight; Aty Lym Flag Marked; Hypochromasia Moderate; Luc # (Auto) 0.06
[2016-07-31 06:44] LABS: Basophils % (A) 0 %; CH 28.4; CHCM 31.7; Eosinophils # (A) 0.1 k/uL (0-0.7); Eosinophils % (A) 3 %; HCT 21.3 % (34.0-46.0); HDW 3.32; HGB 7.2 gm/dL (11.4-16.0); Luc % (Auto) 2; Lymphocytes # (A) 0.2 k/uL (1.0-4.8); Lymphocytes % (A) 9 %; MCH 30.4 pg (25.0-35.0); MCHC 33.8 g/dL (31.0-37.0); Mean Platelet Volume 7.9; Monocytes # (A) 0.1 k/uL (0-1.0); Monocytes % (A) 5 %; Neutrophils % (A) 81 %; RBC 2.37 m/uL (3.80-5.40); RDW 16.9 % (11.5-15.5); WBC 2.5 k/uL (3.8-10.6); WBC (Perox) 2.68
[2016-07-31 06:48] LABS: Calcium 7.9 mg/dL (8.4-10.2); Potassium 5.3 mmol/L (3.5-5.1); Total Bilirubin 1.6 mg/dL (0.2-1.3); Total Protein 6.1 g/dL (6.3-8.2)
[2016-07-31] MEDS: SODIUM CHLORIDE 0.9% 1,000 ML IV SCH ×2 (07:21→17:06)
[2016-07-31] MEDS: LEVOTHYROXINE 100 MCG TAB PO SCH (07:32)
[2016-07-31] MEDS: CARVEDILOL 12.5 MG TAB PO SCH ×2 (08:00→17:07)
[2016-07-31] MEDS: FUROSEMIDE 40 MG TAB PO SCH (08:00)
[2016-07-31] MEDS: PANTOPRAZOLE 40 MG/10 ML VIAL IV SCH (08:00)
--- NOTE | 2016-07-31 08:20 | HP ---
DATE OF ADMISSION: CHIEF COMPLAINT: A 35-year-old white female who has amyloidosis with renal failure who gets dialysis 3 times a week, developed acute bleeding, large amounts of bright red blood per the rectum. She had underwent a stem cell transplant 2 years ago at [facility]. She felt nauseated and some hematemesis. Hemoglobin dropped down to 7 from 8 on admission. Potassium was elevated to 5.9 to 5.2. She was not having chest pain or shortness breath. She felt better, but still having large amounts of bloody stool here at which time a blood transfusion was ordered. PAST MEDICAL HISTORY: Blood disorder, cancer, diabetes mellitus, GERD, dyslipidemia, hypertension, end-stage renal disease secondary to amyloidosis, hypothyroidism, prior pneumonia, history of thyroid cancer, MTHFR gene, pneumonia in March 2015. SURGERIES: Adenoidectomy, , tonsillectomy, tubal ligation, thyroidectomy, 9 lymph nodes removed 4 were positive for cancer. Ovarian cyst surgery, thoracentesis June 2014, motion sickness, anxiety, never smoked, no alcohol. No illicit drugs. FAMILY HISTORY: Father coronary artery disease, diabetes mellitus, myocardial infarction, at age 59, mother with diabetes mellitus. HOME MEDICATIONS: Prilosec, Lasix, Coreg, Synthroid, Requip, trazodone. ALLERGIES: SULFA AND PENICILLIN. PHYSICAL EXAMINATION: Temperature is 98 to 97, pulse 70s to 80s, respiratory rate is 16 to 20, blood pressure is 170s/70s. O2 99% to 100% on room air. White count is 2.5, hemoglobin 7.0. ASSESSMENT: 1. Acute gastrointestinal bleed, unclear etiology. 2. Amyloidosis. 3. End-stage renal disease. 4. Acute anemia secondary to GI bleed. 5. Hyperkalemia secondary to renal disease and GI bleed. 6. Hypothyroidism. Transfuse 1 unit of packed red blood cells. Get Surgery involved for EGD and colonoscopy. Monitor hemoglobin.
[2016-07-31] MEDS ORDERED: NON-FORMULARY DRUG (Omeprazole [Prilosec] 20 MG) PO SCH (09:00)
[2016-07-31] MEDS ORDERED: LISINOPRIL 20 MG TAB PO SCH (09:00)
[2016-07-31] MEDS ORDERED: DARBEPOETIN ALFA 40 MCG/0.4 ML SYRINGE SQ SCH (11:00)
--- NOTE | 2016-07-31 11:28 | P.PN ---
Subjective 35 year old female seen and examined scheduled today for hemodialysis sitting up in a chair patient is voicing concerns about her platelet count being low currently 25. Patient's initial presentation to the emergency room after patient experienced an episode of having a bright red bloody stool noted bright red blood in the toilet bowl. Additionally patient stated at home she had coffee-ground emesis. Patient states she became concerned and came into the emergency room to be evaluated. Patient does have a history significant for stem cell transplant done 2 years ago at [facility]. Patient states her platelets are always low. Additionally patient has a history of amyloidosis resulting in end-stage renal failure. Patient states that she has not had endoscopic stone in the past and has not had prior episodes of experiencing bloody stool or hematemesis additionally patient gives a history of having thyroid cancer and MTHFR gene. Additionally patient states that she has seen Dr. Ware in the past requesting surgical service from Dr. Ware "any endoscopic need to be done patient stating she is requesting Dr. Ware "hemoglobin on admission was 8 this morning at 7.2 platelets on admission were 33 this morning 25 patient has had no further episodes since admission patient has been seen by Dr. Sepulveda this morning. They recommended giving 5 units of platelets at the time of the endoscopy Objective - Vital Signs Vital signs: Vital Signs Temp 98.1 F 07/31/16 07:00 Pulse 68 07/31/16 07:00 Resp 16 07/31/16 07:00 BP 148/70 07/31/16 07:00 Pulse Ox 99 07/31/16 07:00 Intake & Output 07/30/16 07/31/16 07/31/16 18:59 06:59 18:59 Intake Total 1150 1230 Balance 1150 1230 Weight 74.843 kg 74.843 kg Intake: Intake, IV Titration 750 Amount Sodium Chloride 0.9% 1, 750 000 ml @ 75 mls/hr IV . [id number] [facility] Rx#:[id number] Oral 480 480 Blood Product 620 Rc As-1 Unit 310 [id number] Other 50 Rc As-1 Unit 50 [id number] Other: Voiding Method Toilet Toilet # Voids 3 4 # Bowel Movements 1 - Exam Physical exam Pleasant 35 show female sitting up in a chair denies dizziness lightheadedness chest pain or shortness of breath Lungs essentially clear adequate air movement Heart S1-S2 audible regular Abdomen soft nontender reports no nausea vomiting no stool Extremities no pedal edema - Labs CBC & Chem 7: 07/31/16 06:16 07/31/16 06:16 Labs: Abnormal Lab Results - Last 24 Hours (Table) 07/30/16 07/30/16 07/30/16 Range/Units 01:00 01:00 06:30 WBC (3.8-10.6) k/uL RBC (3.80-5.40) m/uL Hgb 8.0 L D (11.4-16.0) gm/dL Hct (34.0-46.0) % RDW (11.5-15.5) % Plt Count (150-450) k/uL Lymphocytes # (1.0-4.8) k/uL Potassium 5.2 H (3.5-5.1) mmol/L BUN 66 H (7-17) mg/dL Creatinine 6.30 H* (0.52-1.04) mg/dL Glucose 126 H (74-99) mg/dL Calcium 8.0 L (8.4-10.2) mg/dL Total Bilirubin (0.2-1.3) mg/dL Alkaline Phosphatase 152 H (38-126) U/L Total Protein 6.0 L (6.3-8.2) g/dL Albumin 3.0 L (3.5-5.0) g/dL TSH 0.016 L (0.465-4.680) mIU/L Crossmatch See Detail 07/31/16 07/31/16 Range/Units 06:16 06:16 WBC 2.5 L (3.8-10.6) k/uL RBC 2.37 L (3.80-5.40) m/uL Hgb 7.2 L (11.4-16.0) gm/dL Hct 21.3 L (34.0-46.0) % RDW 16.9 H (11.5-15.5) % Plt Count 25 L* (150-450) k/uL Lymphocytes # 0.2 L (1.0-4.8) k/uL Potassium 5.3 H (3.5-5.1) mmol/L BUN 73 H (7-17) mg/dL Creatinine 7.81 H* (0.52-1.04) mg/dL Glucose (74-99) mg/dL Calcium 7.9 L (8.4-10.2) mg/dL Total Bilirubin 1.6 H (0.2-1.3) mg/dL Alkaline Phosphatase 128 H (38-126) U/L Total Protein 6.1 L (6.3-8.2) g/dL Albumin 2.9 L (3.5-5.0) g/dL TSH (0.465-4.680) mIU/L Crossmatch Assessment and Plan Plan: Impression Present on admission acute blood loss anemia suspect GI source Amyloidosis-had stem cell transplant July 2014, End-stage renal disease on hemodialysis History of thyroid cancer 2011 MTHFR gene Hyperkalemia secondary to chronic kidney disease and GI bleed potassium 5.2 Plan Patient received 1 unit of packed red blood cells on the Patient scheduled for hemodialysis today Await surgical eval patient request Dr. Ware Resume home meds as appropriate Continue clear liquid Hematology oncology's recommendations noted to be given at the time of endoscopy Repeat labs in the morning The above impression and plan of care have been discussed and directed by signing physician. Luz Martin nurse practitioner acting as scribe for signing physician.
--- NOTE | 2016-07-31 11:28 | P.PN ---
Subjective Patient is seen in follow-up for end-stage renal disease. She is maintained on hemodialysis on a Sunday schedule. Patient presented with bloody bowel movements. She did receive a blood transfusion on admission and hemoglobin this morning 7.2. She hasn't had any bloody bowel movements in the last 24 hours. Denies chest pain or shortness of breath. Currently resting in bed. No active complaints at this time. Vital signs are stable. General: The patient appeared well nourished and normally developed. HEENT: Head exam is unremarkable. Neck is without jugular venous distension. LUNGS: Lungs are clear to auscultation and percussion. Breath sounds decreased. HEART: Rate and Rhythm are regular. First and second heart sounds normal. No murmurs, rubs or gallops. ABDOMEN: Abdominal exam reveals normal bowel sounds. Non-tender and non- distended. No evidence of peritonitis. EXTREMITITES: No clubbing, cyanosis, or edema. Objective - Vital Signs Vital signs: Vital Signs Temp 98.1 F 07/31/16 07:00 Pulse 68 07/31/16 07:00 Resp 16 07/31/16 07:00 BP 148/70 07/31/16 07:00 Pulse Ox 99 07/31/16 07:00 Intake & Output 07/30/16 07/31/16 07/31/16 18:59 06:59 18:59 Intake Total 1150 1230 Balance 1150 1230 Weight 74.843 kg 74.843 kg Intake: Intake, IV Titration 750 Amount Sodium Chloride 0.9% 1, 750 000 ml @ 75 mls/hr IV . [id number] [facility] Rx#:[id number] Oral 480 480 Blood Product 620 Rc As-1 Unit 310 [id number] Other 50 Rc As-1 Unit 50 [id number] Other: Voiding Method Toilet Toilet # Voids 3 4 # Bowel Movements 1 - Labs CBC & Chem 7: 07/31/16 06:16 07/31/16 06:16 Labs: Abnormal Lab Results - Last 24 Hours (Table) 07/30/16 07/30/16 07/30/16 Range/Units 01:00 01:00 06:30 WBC (3.8-10.6) k/uL RBC (3.80-5.40) m/uL Hgb 8.0 L D (11.4-16.0) gm/dL Hct (34.0-46.0) % RDW (11.5-15.5) % Plt Count (150-450) k/uL Lymphocytes # (1.0-4.8) k/uL Potassium 5.2 H (3.5-5.1) mmol/L BUN 66 H (7-17) mg/dL Creatinine 6.30 H* (0.52-1.04) mg/dL Glucose 126 H (74-99) mg/dL Calcium 8.0 L (8.4-10.2) mg/dL Total Bilirubin (0.2-1.3) mg/dL Alkaline Phosphatase 152 H (38-126) U/L Total Protein 6.0 L (6.3-8.2) g/dL Albumin 3.0 L (3.5-5.0) g/dL TSH 0.016 L (0.465-4.680) mIU/L Crossmatch See Detail 07/31/16 07/31/16 Range/Units 06:16 06:16 WBC 2.5 L (3.8-10.6) k/uL RBC 2.37 L (3.80-5.40) m/uL Hgb 7.2 L (11.4-16.0) gm/dL Hct 21.3 L (34.0-46.0) % RDW 16.9 H (11.5-15.5) % Plt Count 25 L* (150-450) k/uL Lymphocytes # 0.2 L (1.0-4.8) k/uL Potassium 5.3 H (3.5-5.1) mmol/L BUN 73 H (7-17) mg/dL Creatinine 7.81 H* (0.52-1.04) mg/dL Glucose (74-99) mg/dL Calcium 7.9 L (8.4-10.2) mg/dL Total Bilirubin 1.6 H (0.2-1.3) mg/dL Alkaline Phosphatase 128 H (38-126) U/L Total Protein 6.1 L (6.3-8.2) g/dL Albumin 2.9 L (3.5-5.0) g/dL TSH (0.465-4.680) mIU/L Crossmatch Assessment and Plan Plan: Assessment: #1. End-stage renal disease maintained on hemodialysis on a Sunday schedule. #2. Acute anemia related to GI bleed status post 1 unit blood transfusion. #3. Hyperkalemia secondary to chronic kidney disease and GI bleed. Improved since admission. #4. Chronic kidney disease mineral bone disease. #5. History of amyloidosis status post stem cell transplant 2 years ago. Plan: Hemodialysis today with goal 2 liters ultrafiltration. Surgery following. Potential EGD and colonoscopy this admission. Continue to monitor hemoglobin. Start Aranesp.
[2016-07-31 11:34] LABS: Hemoglobin A1C 5.6 % (4.2-6.1)
[2016-07-31 15:07] VITALS: BP 143/68; PULSE 73; TEMP 98.2
--- NOTE | 2016-07-31 16:07 | P.CONS ---
History of Present Illness - Reason for Consult Consult date: 07/31/16 pancytopenia, GI bleed Requesting physician: Jagdish Romano - Chief Complaint GI bleeding, hematemesis - History of Present Illness Ms. Morrow is a very pleasant female pt who is seen by Dr. Sepulveda locally and Dr. Boston out of [facility] in [place]. Her history starts when she went on vacation to [place] 10/19. She developed fatigue, leg swelling, nausea that was persistent so she sought medical attention when she returned home. Work up revealed elevate creatinine, abnormal electrolyte values and low albumin, US showed no GI obstruction, pt underwent kidney biopsy on 12/02/13and this revealed amyloid deposition, hint of kappa restriction though definite free light chains were not detected. Pt was then seen by Dr. Sepulveda for further eval. Bone marrow revealed a monoclonal kappa restricted population of plasma cells, about 12% of total, kappa light chain level was increased with a ratio of 4.48. Bone survey was normal, ECHO showed some dilation of the left atrium, CT showed hepatosplenomegaly. Pt was given a diagnosis of primary light chain amyloidosis, she was referred to [facility]. It was felt that she should be treated as an overt myeloma, given plasma cell percentage > 10%. She was felt to be an appropriate candidate for transplant, she autologous BMT . She did well post transplant. She started hemodialysis 02/18/14, tried CAPD on 05/13/14 but was placed back on HD due to trans- diaphragmmatic leak, she had a AV graft placed in 07/20. Pt follows with Dr. Boston and intermittently with Dr. Sepulveda. She is current on follow up, due for bone marrow in the next 1-2 months. Pt is chronically pancytopenic with further decrease in her counts when she is ill or her body is under stress. Pt states bright red blood on toilet paper and dark, clotted blood in the toilet x 1 day, associated with diarrhea and abd cramping, she also had hematemesis, denies any other bleeding or pain. She has not been ill recently, no fevers, wt. loss, indigestion or heartburn, appetite is good, she has not had vomiting or bloody BM since admission, she denies SOB or chest pain, no other physical c/o on a 10 point ROS. Review of Systems All systems: negative Constitutional: Reports as per HPI Past Medical History Past Medical History: Blood Disorder, Cancer, Diabetes Mellitus, GERD/Reflux, Hyperlipidemia, Hypertension, Pneumonia, Renal Disease, Thyroid Disorder Additional Past Medical History / Comment(s): used to do peritoneal dialysis but had complication where fluid went into lungs, now does hemodialysis Mon-Sun- Sun, hx. 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 THOROCENTESIS June 2014 Past Anesthesia/Blood Transfusion Reactions: Motion Sickness, Postoperative Nausea & Vomiting (PONV) Past Psychological History: Anxiety Additional Psychological History / Comment(s): XANAX NEEDED Smoking Status: Never smoker Past Alcohol Use History: None Reported Past Drug Use History: None Reported - Past Family History Father Family Medical History: Coronary Artery Disease (CAD), Diabetes Mellitus, Myocardial Infarction ([place]) Additional Family Medical History / Comment(s): AT AGE 59-[place] Mother Family Medical History: Diabetes Mellitus Medications and Allergies Home Medications Medication Instructions Recorded Confirmed Type Omeprazole [PriLOSEC] 20 mg PO DAILY 04/27/14 07/30/16 History Furosemide [Lasix] 40 mg PO DAILY 04/06/15 07/30/16 History Carvedilol [Coreg*] 12.5 mg PO BID 06/06/16 07/30/16 History Levothyroxine Sodium [Synthroid] 300 mcg PO DAILY 06/06/16 07/30/16 History rOPINIRole HCL [Requip] 0.5 mg PO TID PRN 06/06/16 07/30/16 History rOPINIRole HCL [Requip] 1 mg PO HS PRN 06/06/16 07/30/16 History traZODone HCL 50 mg PO HS PRN 06/06/16 07/30/16 History Allergies Allergy/AdvReac Type Severity Reaction Status Date / Time Sulfa (Sulfonamide Allergy Severe Anaphylaxis Verified 06/25/17 10:14 Antibiotics) Penicillins Allergy Intermediate Rash/Hives/ Verified 07/30/16 10:14 Nausea/Vomi ting Physical Exam Vitals: Vital Signs Temp Pulse Resp BP Pulse Ox 07/31/16 15:00 98.2 F 73 16 143/68 100 07/31/16 07:00 98.1 F 68 16 148/70 99 07/30/16 22:59 71 16 07/30/16 22:06 98 F 71 16 125/67 100 Intake and Output 07/31/16 07/31/16 07/31/16 06:59 14:59 22:59 Intake Total 750 Balance 750 Intake: Intake, IV Titration 750 Amount Sodium Chloride 0.9% 1, 750 000 ml @ 75 mls/hr IV . [id number] [facility] Rx#:[id number] Other: # Voids 4 - Constitutional General appearance: average body habitus, cooperative, no acute distress - EENT Eyes: anicteric sclerae, PERRLA, normal appearance ENT: hearing grossly normal, normal oropharynx - Neck Neck: no lymphadenopathy - Respiratory Respiratory: bilateral: CTA - Cardiovascular right AC graft visible Heart sounds: normal: S1, S2 leg Peripheral Edema: bilateral: None - Gastrointestinal General gastrointestinal: no absent bowel sounds, no decreased bowel sounds, no distended, no hepatomegaly, no hyperactive bowel sounds, normal bowel sounds, no organomegaly, no rigid, no scaphoid, soft, no splenomegaly, no tenderness, no umbilical hernia, no ventral hernia - Integumentary darken skin color from CKD - Neurologic Neurologic: CNII-XII intact - Musculoskeletal Musculoskeletal: strength equal bilaterally - Psychiatric Psychiatric: A&O x's 3, appropriate affect, intact judgment & insight Results CBC & Chem 7: 07/31/16 06:16 07/31/16 06:16 Labs: Abnormal Lab Results - Last 24 Hours (Table) 07/30/16 07/31/16 07/31/16 Range/Units 01:00 06:16 06:16 WBC 2.5 L (3.8-10.6) k/uL RBC 2.37 L (3.80-5.40) m/uL Hgb 8.0 L D 7.2 L (11.4-16.0) gm/dL Hct 21.3 L (34.0-46.0) % RDW 16.9 H (11.5-15.5) % Plt Count 25 L* (150-450) k/uL Lymphocytes # 0.2 L (1.0-4.8) k/uL Potassium 5.3 H (3.5-5.1) mmol/L BUN 73 H (7-17) mg/dL Creatinine 7.81 H* (0.52-1.04) mg/dL Calcium 7.9 L (8.4-10.2) mg/dL Total Bilirubin 1.6 H (0.2-1.3) mg/dL Alkaline Phosphatase 128 H (38-126) U/L Total Protein 6.1 L (6.3-8.2) g/dL Albumin 2.9 L (3.5-5.0) g/dL Assessment and Plan (1) History of stem cell transplant Narrative/Plan: Pt is due for follow up bone marrow in the near future, this will be planned out patient. Status: Acute (2) Pancytopenia Narrative/Plan: Recommend platelet transfusion just before/at time of endoscopy procedures so that pt has active, circulating platelets in case of need for biopsy, platelets have been ordered to be given just at time of procedure. Pt does have a drop in Hgb from her baseline of around 9-10, she has been ordered a transfusion for the same. Status: Acute
--- NOTE | 2016-07-31 22:28 | P.PN ---
Subjective Principal diagnosis: GI bleeding Patient has had no further bleeding. Denies abdominal pain. She is due for hemodialysis Today she is concerned that she will not be able to take a bowel prep because of the upcoming hemodialysis. Labs from today were reviewed. Objective - Vital Signs Vital signs: Vital Signs Temp 98.2 F 07/31/16 15:00 Pulse 73 07/31/16 15:00 Resp 16 07/31/16 15:00 BP 143/68 07/31/16 15:00 Pulse Ox 100 07/31/16 15:00 Intake & Output 07/31/16 07/31/16 08/01/16 06:59 18:59 06:59 Intake Total 1230 Balance 1230 Weight 74.843 kg Intake: Intake, IV Titration 750 Amount Sodium Chloride 0.9% 1, 750 000 ml @ 75 mls/hr IV . [id number] [facility] Rx#:[id number] Oral 480 Other: Voiding Method Toilet # Voids 4 - Exam Abdomen: Soft, nontender, nondistended - Labs CBC & Chem 7: 07/31/16 06:16 07/31/16 06:16 Labs: Abnormal Lab Results - Last 24 Hours (Table) 07/30/16 07/31/16 07/31/16 Range/Units 01:00 06:16 06:16 WBC 2.5 L (3.8-10.6) k/uL RBC 2.37 L (3.80-5.40) m/uL Hgb 8.0 L D 7.2 L (11.4-16.0) gm/dL Hct 21.3 L (34.0-46.0) % RDW 16.9 H (11.5-15.5) % Plt Count 25 L* (150-450) k/uL Lymphocytes # 0.2 L (1.0-4.8) k/uL Potassium 5.3 H (3.5-5.1) mmol/L BUN 73 H (7-17) mg/dL Creatinine 7.81 H* (0.52-1.04) mg/dL Calcium 7.9 L (8.4-10.2) mg/dL Total Bilirubin 1.6 H (0.2-1.3) mg/dL Alkaline Phosphatase 128 H (38-126) U/L Total Protein 6.1 L (6.3-8.2) g/dL Albumin 2.9 L (3.5-5.0) g/dL Assessment and Plan (1) GI hemorrhage Narrative/Plan: The patient is requesting to be discharged and have her endoscopy performed electively as an outpatient. I discussed We will arrange for upper and lower endoscopy for this coming . One unit of single donor irradiated platelets will be transfused preoperatively. The patient will make her own arrangements for elective hemodialysis Tomorrow. Status: Acute
== END 2016-07-31 18:15 | disposition home or self-care (01) | DRG 377 ==
LOC: EC 00:11 → 5ONC 02:15
PROVIDERS: ADMIT Family Medicine; ATTEND Family Medicine
PROC: 30233N1 Transfusion of Nonautologous Red Blood Cells into Peripheral Vein, Percutaneous Approach (ICD-10-PCS; principal; 2016-07-30)
DX: K92.2 Gastrointestinal hemorrhage, unspecified (principal); N18.6 End stage renal disease; D61.818 Other pancytopenia; E85.9 Amyloidosis, unspecified; I12.0 Hypertensive chronic kidney disease with stage 5 chronic kidney disease or end stage renal disease; D62 Acute posthemorrhagic anemia; E11.22 Type 2 diabetes mellitus with diabetic chronic kidney disease; E87.5 Hyperkalemia; E03.9 Hypothyroidism, unspecified; E78.5 Hyperlipidemia, unspecified; K21.9 Gastro-esophageal reflux disease without esophagitis; F41.9 Anxiety disorder, unspecified; E83.9 Disorder of mineral metabolism, unspecified; Z79.899 Other long term (current) drug therapy; Z85.850 Personal history of malignant neoplasm of thyroid; Z99.2 Dependence on renal dialysis; Z88.0 Allergy status to penicillin; Z88.2 Allergy status to sulfonamides; Z82.49 Family history of ischemic heart disease and other diseases of the circulatory system
CPT/HCPCS: 36415; 80053; 82550; 82553; 83036; 84439; 84443; 84484; 84703; 85025; 85610; 85730; 86850; 86900; 86901; 86920; 96374; 99285

== ENCOUNTER 2016-08-03 09:54 | Day surgery (SDC) | payer BC ==
[2016-08-02 10:56] VITALS: BMI 31.1
[~2016-08-03 09:54] MED LIST: LACTATED RINGERS 1,000 ML IV SCH
[2016-08-03 10:08] VITALS: TEMP 98
[2016-08-03] MEDS ORDERED: LACTATED RINGERS 1,000 ML IV ONE ×2 (10:15→12:35)
[2016-08-03] MEDS ORDERED: LIDOCAINE 1% 20 ML VIAL (10MG/ML) FOR IV START INTRADERMA ONE (10:16)
[2016-08-03 10:35] LABS: Anisocytosis Slight; Basophils % (A) 0 %; CH 29.2; CHCM 33.1; Eosinophils # (A) 0.1 k/uL (0-0.7); Eosinophils % (A) 1 %; HCT 24.7 % (34.0-46.0); HDW 3.68; Hypochromasia Slight; Luc # (Auto) 0.12; Luc % (Auto) 3; Lymphocytes # (A) 0.3 k/uL (1.0-4.8); Lymphocytes % (A) 8 %; MCH 28.8 pg (25.0-35.0); MCHC 32.4 g/dL (31.0-37.0); MCV 88.7 fL (80.0-100.0); Mean Platelet Volume 8.9; Monocytes # (A) 0.3 k/uL (0-1.0); Monocytes % (A) 6 %; Neutrophils # (A) 3.3 k/uL (1.3-7.7); Neutrophils % (A) 81 %; Poikilocytosis Slight; RBC 2.79 m/uL (3.80-5.40); RDW 17.1 % (11.5-15.5); WBC 4.1 k/uL (3.8-10.6); WBC (Perox) 4.07
[2016-08-03] MEDS ORDERED: ONDANSETRON 4 MG/2 ML VIAL IVP ONE (11:00)
[2016-08-03] MEDS ORDERED: LIDOCAINE 1% INJ 10MG/ML (20 ML MDV) ONE (11:56)
[2016-08-03] MEDS ORDERED: PROPOFOL 10 MG/ML 20 ML VIAL IV ONE (11:56)
--- NOTE | 2016-08-03 11:56 | P.GSHP ---
History of Present Illness H&P Date: 08/03/16 Chief Complaint: Rectal bleeding, hematemesis Patient was recently hospitalized with thrombocytopenia along with spontaneous rectal bleeding and hematemesis. She noticed a resolution of her bleeding shortly after arrival. We were consulted for upper and lower endoscopy. The patient wanted to have this performed electively as an outpatient. She took a bowel prep yesterday. Platelet level today was 34 and hemoglobin 8.0. Past Medical History Past Medical History: Blood Disorder, Cancer, GERD/Reflux, Hyperlipidemia, Hypertension, Pneumonia, Renal Disease, Thyroid Disorder Additional Past Medical History / Comment(s): HEMO DYALISIS, THYROID CANCER, 2011, MTHFR GENE, Amyloidosis-had stem cell transplant July 2014, ANEMIA History of Any Multi-Drug Resistant Organisms: None Reported Past Surgical History: Adenoidectomy, Section, Tonsillectomy, Tubal Ligation Additional Past Surgical History / Comment(s): THYROIDECTOMY AND REMOVED 9 LYMPH NODES REMOVED 4 OF WHICH A WERE POSITIVE FOR CA; OVARIAN CYST SURGERY. THOROCENTESIS June 2014 Past Anesthesia/Blood Transfusion Reactions: Motion Sickness, Postoperative Nausea & Vomiting (PONV) Smoking Status: Never smoker - Past Family History Father Family Medical History: Coronary Artery Disease (CAD), Diabetes Mellitus, Myocardial Infarction ([place]) Additional Family Medical History / Comment(s): AT AGE 59-[place] Mother Family Medical History: No Reported History Medications and Allergies Home Medications Medication Instructions Recorded Confirmed Type Omeprazole [PriLOSEC] 20 mg PO DAILY 04/27/14 08/02/16 History Furosemide [Lasix] 40 mg PO DAILY 04/06/15 08/02/16 History Carvedilol [Coreg*] 12.5 mg PO BID 06/06/16 08/02/16 History Levothyroxine Sodium [Synthroid] 300 mcg PO DAILY 06/06/16 08/02/16 History rOPINIRole HCL [Requip] 0.5 mg PO TID PRN 06/06/16 08/02/16 History rOPINIRole HCL [Requip] 1.5 mg PO HS PRN 06/06/16 08/02/16 History traZODone HCL 50 mg PO HS PRN 06/06/16 08/02/16 History Allergies Allergy/AdvReac Type Severity Reaction Status Date / Time Sulfa (Sulfonamide Allergy Severe Anaphylaxis Verified 08/02/16 09:32 Antibiotics) Penicillins Allergy Intermediate Rash/Hives/ Verified 08/02/16 09:32 Nausea/Vomi ting Surgical - Exam Vital Signs Temp Pulse Resp BP Pulse Ox 98.0 F 82 18 143/65 99 08/03/16 10:07 08/03/16 10:07 08/03/16 10:07 08/03/16 10:07 08/03/16 10:07 Physical exam: General: Well-developed, well-nourished HEENT: Normocephalic, sclerae nonicteric Abdomen: Nontender, nondistended Extremities: No edema Neuro: Alert and oriented Results - Labs 08/03/16 10:16 08/03/16 10:16 Abnormal Lab Results - Last 24 Hours (Table) 08/03/16 Range/Units 10:16 RBC 2.79 L (3.80-5.40) m/uL Hgb 8.0 L (11.4-16.0) gm/dL Hct 24.7 L (34.0-46.0) % RDW 17.1 H (11.5-15.5) % Plt Count 34 L* (150-450) k/uL Lymphocytes # 0.3 L (1.0-4.8) k/uL Diabetes panel 08/03/16 Range/Units 10:16 Potassium 4.2 (3.5-5.1) mmol/L Pituitary panel 08/03/16 Range/Units 10:16 Potassium 4.2 (3.5-5.1) mmol/L Adrenal panel 08/03/16 Range/Units 10:16 Potassium 4.2 (3.5-5.1) mmol/L Assessment and Plan (1) GI hemorrhage Narrative/Plan: Will proceed with upper and lower endoscopy at this time. Risks of bleeding and perforation discussed. Status: Acute
[2016-08-03 11:58] LABS: Anisocytosis Slight; Basophils % (A) 0 %; Eosinophils # (A) 0.1 k/uL (0-0.7); Eosinophils % (A) 2 %; HDW 3.67; Hypochromasia Slight; Luc % (Auto) 3; Lymphocytes # (A) 0.3 k/uL (1.0-4.8); Lymphocytes % (A) 7 %; MCH 28.7 pg (25.0-35.0); MCHC 32.4 g/dL (31.0-37.0); MCV 88.5 fL (80.0-100.0); Mean Platelet Volume 9.4; Monocytes # (A) 0.2 k/uL (0-1.0); Monocytes % (A) 5 %; Neutrophils % (A) 84 %; Poikilocytosis Slight; RBC 2.37 m/uL (3.80-5.40); RDW 16.9 % (11.5-15.5); WBC 3.6 k/uL (3.8-10.6); WBC (Perox) 3.67
[2016-08-03 12:00] LABS: HGB 6.8 gm/dL (11.4-16.0)
--- NOTE | 2016-08-03 12:32 | P.PCN ---
Date of Procedure: 08/03/16 Preoperative Diagnosis: Postoperative Diagnosis: Procedure(s) Performed: PREOPERATIVE DIAGNOSIS: GI bleed POSTOPERATIVE DIAGNOSIS: Esophageal varices, hemorrhoids PROCEDURE: 1. EGD 2. Colonoscopy ANESTHESIA: MAC SURGEON: [place] Ware M.D. SPECIMENS: None ENDOSCOPIC PROCEDURE: The patient was on the endoscopy table in the left decubitus position. The Olympus gastroscope was inserted into the oropharynx and passed under direct visualization to the region of the third portion of the duodenum. From that point the scope was slowly withdrawn inspecting all surfaces carefully. There were no neoplastic inflammatory or polypoid lesions throughout the duodenum. The pylorus was widely patent. The stomach was carefully inspected. There was no significant gastritis present. A biopsy of the antrum took place to rule out H. pylori. Retroflexion revealed a normal hiatus. The esophagus was then carefully examined. There was evidence of esophageal varices involving the distal esophagus. No stigmata of recent bleeding noted.. The patient was kept on the endoscopy table in the left decubitus position. The Olympus colonoscope was inserted into the anus and passed under direct visualization to the base of the cecum. The appendiceal orifice was visualized. From that point the scope was slowly withdrawn inspecting all surfaces carefully. There were no neoplastic inflammatory or polypoid lesions throughout the cecum, ascending, transverse, descending, sigmoid and rectum. There was no diverticulosis noted. Digital rectal examination revealed internal and external hemorrhoids. The patient was taken to the recovery room in stable condition per anesthesia guidelines. RECOMMENDATIONS: Resume diet. Will refer to GI as an outpatient for possible variceal banding and workup of portal hypertension. Implants: Indications for Procedure: Operative Findings: Description of Procedure:
[2016-08-03 12:58] VITALS: BP 133/69; PULSE 76; RESP 16
== END 2016-08-03 13:42 | disposition home or self-care (01) ==
LOC: ORWHC2ENDO 09:54
PROVIDERS: ATTEND Surgery
DX: I85.00 Esophageal varices without bleeding (principal); K21.9 Gastro-esophageal reflux disease without esophagitis; I10 Essential (primary) hypertension; E78.5 Hyperlipidemia, unspecified; E07.9 Disorder of thyroid, unspecified; N19 Unspecified kidney failure; E85.9 Amyloidosis, unspecified; Z79.899 Other long term (current) drug therapy; Z88.0 Allergy status to penicillin; Z88.2 Allergy status to sulfonamides
CPT/HCPCS: 81025; 86900; 86901; 84132; 85025; 86850; 45378; 43235; P9035; J2405; J2001; J2704

== ENCOUNTER → 2016-10-05 | Outpatient (CLI) | payer BC ==
--- NOTE | 2016-10-05 12:12 | CT ---
EXAMINATION TYPE: CT abdomen pelvis wo con DATE OF EXAM: 10/05/2016 COMPARISON: Previous study dated 02/09/2014. HISTORY: No complaints at time of scan. Known hepatomegaly CT DLP: 1043 mGycm Automated exposure control for dose reduction was used. FINDINGS: There is scarring present at the right lung base. There is no pleural or pericardial fluid. The heart is enlarged. There is coronary artery and other vascular calcifications. Within the abdomen, the liver is decreased in size from 24 cm to 21 cm. The spleen is increased in si ze from 12 cm to 19.8 cm. The gallbladder is unremarkable. Both adrenal glands are normal. Both kidneys are atrophic. There is no hydronephrosis or nephrolithiasis. The right kidney measures 6 .9 cm in length and the left measures 6.4 cm in length. The pancreas is unremarkable. There is no significant retroperitoneal, iliac or inguinal adenopathy. There is follicular change in both ovaries. The bladder is unremarkable. There is some small bowel thickening in the proximal jejunum. There is no significant diverticular change and there is no radiographic evidence of diverticulitis. The appendix is not visualized. There is a moderate amount of free fluid within the pelvis. No free air is seen. There is minor degenerative disc disease and hypertrophic spondylosis at L2-3. No bony destructive le gonzales is seen. IMPRESSION: 1. HEPATOSPLENOMEGALY. 2. THICKENING OF THE PROXIMAL SMALL BOWEL. PLEASE CORRELATE FOR ENTERITIS. 3. ATROPHIC KIDNEYS. 4. MILD DEGENERATIVE CHANGE WITHIN THE SPINE.
== END | disposition home or self-care (01) ==
LOC: RADCTMAIN 09:59
PROVIDERS: ATTEND Internal Medicine Hematology & Oncology
DX: R16.2 Hepatomegaly with splenomegaly, not elsewhere classified (principal); N26.1 Atrophy of kidney (terminal); E85.9 Amyloidosis, unspecified; Z88.0 Allergy status to penicillin; Z88.2 Allergy status to sulfonamides
CPT/HCPCS: 74176

== ENCOUNTER 2016-10-07 15:12 | Emergency (ER) | payer BC ==
[2016-10-07 15:23] VITALS: BP 197/79; PULSE 81; TEMP 97.9
[2016-10-07] MEDS ORDERED: DIPH,PERTUS(ACELL)TETVAC-LF 0.5 ML VIAL IM ONE (15:30)
[2016-10-07] MEDS ORDERED: CIPROFLOXACIN HCL 500 MG TAB PO STA (15:30)
[2016-10-07] MEDS ORDERED: metroNIDAZOLE 500 MG TAB PO STA (15:30)
--- NOTE | 2016-10-07 15:39 | ED ---
Animal Bite HPI - General Chief Complaint: Animal Bite Stated Complaint: Dog Bite/Face Time Seen by Provider: 10/07/16 15:22 Source: patient, RN notes reviewed, old records reviewed Mode of arrival: ambulatory Limitations: no limitations - History of Present Illness Initial Comments: This is a 35-year-old female presenting to the emergency Department chief complaint of a dog bite to her right lower eye. Patient reports she has a extensive medical history of amyloidosis, and multiple cancers. She reports she has a low platelet count she bruises very easily. She reports that she has a small puncture wound underneath her right eye. He noticed some bruising underneath it. She denies any other injury. Patient reports the bleeding is now well controlled. Patient was sent in here just for further evaluation due to a dog bite needs to place on antibiotic. Patient denies any pain with extra ocular eye movements. Denies any pain with facial movements. - Related Data Home Medications Medication Instructions Recorded Confirmed Omeprazole [PriLOSEC] 20 mg PO DAILY 04/27/14 08/02/16 Furosemide [Lasix] 40 mg PO DAILY 04/06/15 08/02/16 Carvedilol [Coreg*] 12.5 mg PO BID 06/06/16 08/02/16 Levothyroxine Sodium [Synthroid] 300 mcg PO DAILY 06/06/16 08/02/16 rOPINIRole HCL [Requip] 0.5 mg PO TID PRN 06/06/16 08/02/16 rOPINIRole HCL [Requip] 1.5 mg PO HS PRN 06/06/16 08/02/16 traZODone HCL 50 mg PO HS PRN 06/06/16 08/02/16 Previous Rx's Medication Instructions Recorded Lisinopril [Zestril] 20 mg PO DAILY #1 tab 04/08/15 Ciprofloxacin HCl [Cipro] 500 mg PO Q12HR 7 Days 10/07/16 metroNIDAZOLE [Flagyl] 500 mg PO TID 7 Days 10/07/16 Allergies Allergy/AdvReac Type Severity Reaction Status Date / Time Sulfa (Sulfonamide Allergy Severe Anaphylaxis Verified 10/07/16 15:23 Antibiotics) Penicillins Allergy Intermediate Rash/Hives/ Verified 10/07/16 15:23 Nausea/Vomi ting Review of Systems ROS Statement: Those systems with pertinent positive or pertinent negative responses have been documented in the HPI. ROS Other: All systems not noted in ROS Statement are negative. Past Medical History Past Medical History: Blood Disorder, Cancer, GERD/Reflux, Hyperlipidemia, Hypertension, Pneumonia, Renal Disease, Thyroid Disorder Additional Past Medical History / Comment(s): HEMO DYALISIS, THYROID CANCER, 2011, MTHFR GENE, Amyloidosis-had stem cell transplant July 2014, ANEMIA History of Any Multi-Drug Resistant Organisms: None Reported Past Surgical History: Adenoidectomy, Section, Tonsillectomy, Tubal Ligation Additional Past Surgical History / Comment(s): THYROIDECTOMY AND REMOVED 9 LYMPH NODES REMOVED 4 OF WHICH A WERE POSITIVE FOR CA; OVARIAN CYST SURGERY. THOROCENTESIS June 2014, fistula right upper arm Past Anesthesia/Blood Transfusion Reactions: Motion Sickness, Postoperative Nausea & Vomiting (PONV) Past Psychological History: Anxiety Smoking Status: Never smoker - Past Family History Father Family Medical History: Coronary Artery Disease (CAD), Diabetes Mellitus, Myocardial Infarction ([place]) Additional Family Medical History / Comment(s): AT AGE 59-[place] Mother Family Medical History: No Reported History General Exam - General Exam Comments Initial Comments: This is a 35 showed female. Patient does not appear to be any acute distress. Limitations: no limitations General appearance: alert, in no apparent distress Head exam: Present: atraumatic, normocephalic, normal inspection Eye exam: Present: normal appearance, PERRL, EOMI. Absent: scleral icterus, conjunctival injection, periorbital swelling ENT exam: Present: normal exam, mucous membranes moist, other (Patient has a contusion over her right lower orbit. Small puncture wound noted.) Neck exam: Present: normal inspection. Absent: tenderness, meningismus, lymphadenopathy Respiratory exam: Present: normal lung sounds bilaterally. Absent: respiratory distress, wheezes, rales, rhonchi, stridor Cardiovascular Exam: Present: regular rate, normal rhythm, normal heart sounds. Absent: systolic murmur, diastolic murmur, rubs, gallop, clicks GI/Abdominal exam: Present: soft, normal bowel sounds. Absent: distended, tenderness, guarding, rebound, rigid Extremities exam: Present: normal inspection, full ROM, normal capillary refill. Absent: tenderness, pedal edema, joint swelling, calf tenderness Back exam: Present: normal inspection Neurological exam: Present: alert, oriented X3, CN II-XII intact Psychiatric exam: Present: normal affect, normal mood Skin exam: Present: warm, dry, intact, normal color. Absent: rash Course Vital Signs 10/07/16 15:18 Temperature 97.9 F Pulse Rate 81 Respiratory 181 H Rate Blood Pressure 197/79 O2 Sat by Pulse 100 Oximetry Medical Decision Making - Medical Decision Making This is a 35-year-old female presenting to the emergency department with chief complaint of a dog bite to her right lower eye. Patient reports no pain with extraocular Movements. There is a small puncture wound underneath the eye. She is ALLERGIC to sulfa and penicillins. Patiently placed on Cipro and Flagyl for antibiotic coverage due to her ALLERGIES to Augmentin. Patient was given an updated tetanus shot. She reports that the dog is up-to-date on rabies and does not want rabies prophylaxis. Patient agrees to treatment plan will comply. Return parameters were discussed. Disposition Clinical Impression: Dog bite of face Disposition: HOME SELF-CARE Condition: Good Instructions: Animal Bite (ED) Additional Instructions: Patient advised to continue to apply ice over the bruising. Take antibiotics as directed. Return to emergency department if there are any alarming signs or symptoms occur including drainage or worse swelling over the eye. Prescriptions: Ciprofloxacin HCl [Cipro] 500 mg PO Q12HR 7 Days metroNIDAZOLE [Flagyl] 500 mg PO TID 7 Days Referrals: None,Stated [Primary Care Provider] - 1-2 days Time of Disposition: 15:37
[2016-10-07 15:54] VITALS: RESP 18
== END 2016-10-07 16:12 | disposition home or self-care (01) ==
LOC: EC 15:12
DX: S01.85XA Open bite of other part of head, initial encounter (principal); K21.9 Gastro-esophageal reflux disease without esophagitis; E78.5 Hyperlipidemia, unspecified; I10 Essential (primary) hypertension; E07.9 Disorder of thyroid, unspecified; F41.9 Anxiety disorder, unspecified; Z85.850 Personal history of malignant neoplasm of thyroid; Z79.899 Other long term (current) drug therapy; Z88.0 Allergy status to penicillin; Z88.2 Allergy status to sulfonamides; Z23 Encounter for immunization; W54.0XXA Bitten by dog, initial encounter
CPT/HCPCS: 90471; 90715; 99283

== ENCOUNTER → 2017-03-21 | Outpatient (CLI) | payer MEDICARE, BC | END | disposition home or self-care (01) | LOC: LABWHC1 10:02 | PROVIDERS: ATTEND Internal Medicine Endocrinology, Diabetes & Metabolism | DX: C73 Malignant neoplasm of thyroid gland (principal) | CPT/HCPCS: 36415; 84432; 84443; 86800 ==

== ENCOUNTER 2017-06-29 17:29 | Emergency (ER) | payer MEDICARE, BC ==
[2017-06-29 17:53] VITALS: RESP 18
--- NOTE | 2017-06-29 19:03 | ED ---
General Adult HPI - General Chief complaint: Recheck/Abnormal Lab/Rx Stated complaint: CONSTIPATION Time Seen by Provider: 06/29/17 18:38 Source: patient Mode of arrival: ambulatory Limitations: no limitations - History of Present Illness Initial comments: Patient is a 36-year-old female presenting for rectal pressure. 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 She had gastric banding performed 2 weeks ago and at that time, she had decreased by mouth intake and for last 3-4 days, she has not had a significant bowel movement. She states that there is been small drops of stool coming through but no significant bowel movement. She denies any abdominal pain but states that she does have rectal pressure. She has no nausea or vomiting and states that she is taking stool softener, suppository as well as prune juice and this is not providing relief. Her last menstrual period was also 3 years ago she secondary to an unknown etiology. - Related Data Home Medications Medication Instructions Recorded Confirmed Furosemide [Lasix] 40 mg PO DAILY 04/06/15 06/29/17 Carvedilol [Coreg*] 12.5 mg PO BID 06/06/16 06/29/17 rOPINIRole HCL [Requip] 1.5 mg PO HS 06/06/16 06/29/17 Bisacodyl 10 mg RECTAL ONCE PRN 06/29/17 06/29/17 Levothyroxine Sodium [Synthroid] 50 mcg PO DAILY 06/29/17 06/29/17 Levothyroxine Sodium [Synthroid] 200 mcg PO DAILY 06/29/17 06/29/17 Omeprazole 40 mg PO BID 06/29/17 06/29/17 Previous Rx's Medication Instructions Recorded Lisinopril [Zestril] 20 mg PO DAILY #1 tab 04/08/15 Allergies Allergy/AdvReac Type Severity Reaction Status Date / Time Sulfa (Sulfonamide Allergy Severe Anaphylaxis Verified 06/29/17 18:45 Antibiotics) Penicillins Allergy Intermediate Rash/Hives/ Verified 06/29/17 18:45 Nausea/Vomi ting Review of Systems ROS Statement: Those systems with pertinent positive or pertinent negative responses have been documented in the HPI. Constitutional: Negative for chills, fatigue and fever. HENT: Negative for congestion. Respiratory: Negative for chest tightness, shortness of breath and wheezing. Negative for cough Cardiovascular: Negative for chest pain and palpitations. Gastrointestinal: Negative for abdominal pain. Negative for abdominal distention , diarrhea, nausea and vomiting. Positive for constipation Genitourinary: Negative for dysuria. Positive for rectal pressure Musculoskeletal: Negative for back pain, neck pain and neck stiffness. Skin: Negative for color change. Neurological: Negative for dizziness, speech difficulty, weakness and light- headedness. Psychiatric/Behavioral: Negative for agitation and confusion. The patient is not nervous/anxious. ROS Other: All systems not noted in ROS Statement are negative. Past Medical History Past Medical History: Blood Disorder, Cancer, GERD/Reflux, Hyperlipidemia, Hypertension, Pneumonia, Renal Disease, Thyroid Disorder Additional Past Medical History / Comment(s): ESRD-HEMO DYALISIS M/W/SUN, THYROID CANCER WITH THYROIDECTOMY ANDMETS TO LYMPHNODES-RADIOACTIVE IODINE, MTHFR GENE, Amyloidosis-causes low HGB/low platelets-had stem cell transplant July 2014, UTI, LOW GI BLEED, ESOPHAGEAL VARICIES, HEMORRHOIDS, THROMBOSIS R LOWER ARM FISTULA. History of Any Multi-Drug Resistant Organisms: None Reported Past Surgical History: Adenoidectomy, Section, Tonsillectomy, Tubal Ligation Additional Past Surgical History / Comment(s): 08/03/16 EGD/colonoscopy, THYROIDECTOMY AND REMOVED 9 LYMPH NODES REMOVED 4 OF WHICH A WERE POSITIVE FOR CA; OVARIAN CYST SURGERY. THOROCENTESIS June 2014, functional fistula right upper arm, thrombosed fistula R lower arm, BMAs/BXs. Past Anesthesia/Blood Transfusion Reactions: Motion Sickness, Postoperative Nausea & Vomiting (PONV) Additional Past Anesthesia/Blood Transfusion Reaction / Comment(s): Pt has received blood without reaction. Past Psychological History: Anxiety Smoking Status: Never smoker Past Alcohol Use History: None Reported Past Drug Use History: None Reported - Past Family History Father Family Medical History: Coronary Artery Disease (CAD), Diabetes Mellitus, Myocardial Infarction ([place]) Additional Family Medical History / Comment(s): AT AGE 59-[place] Mother Family Medical History: No Reported History General Exam - General Exam Comments Initial Comments: Constitutional: Pt is oriented to person, place, and time. Pt appears well- developed and well-nourished. No distress. HENT: Head: Normocephalic and atraumatic. Eyes: EOM are normal. Neck: Normal range of motion. Neck supple. Cardiovascular: Normal rate, regular rhythm, S1 normal, S2 normal and normal heart sounds. Exam reveals no gallop and no friction rub. No murmur heard. Pulmonary/Chest: Effort normal and breath sounds normal. No tachypnea and no bradypnea. No respiratory distress. No wheezes or rales noted. Abdominal: Soft. Bowel sounds are normal. Pt exhibits no shifting dullness, no distension, no pulsatile liver, no fluid wave, no abdominal bruit and no ascites. There is no tenderness. There is no rigidity, no rebound, no guarding, no tenderness at McBurney's point and negative Contreras's sign. Musculoskeletal: Normal range of motion. Neurological: Pt is alert and oriented to person, place, and time. No cranial nerve deficit. Skin: Skin is warm and dry. No rash noted. Pt is not diaphoretic. No erythema. No pallor. Psychiatric: Pt has a normal mood and affect. Pt behavior is normal. Thought content normal. Limitations: no limitations Course Vital Signs 06/29/17 06/29/17 17:50 21:27 Temperature 100.0 F H 98.9 F Pulse Rate 82 71 Respiratory 18 18 Rate Blood Pressure 132/61 115/54 O2 Sat by Pulse 98 99 Oximetry Medical Decision Making - Medical Decision Making Laboratory studies showed that there was significant abnormalities including leukopenia with a white blood cell count of 2.1, thrombocytopenia count of 21. Creatinine was also elevated at 5.8. CT of the abdomen showed splenomegaly with dilated portal venous system consistent with portal venous hypertension. There is noted to be mesenteric edema consistent with chronic venous congestion. Perirectal edema that probably related to venous congestion and rectal varices were present. Results of the laboratory studies were discussed the patient and she states that all these or her normal baseline labs. It was explained that it is possible that the rectal edema could be causing her fullness sensation in the area. Nonetheless, because of the findings on laboratory studies, observation placement was offered to the patient and she currently declined and stated that this is a lifelong problem for her in that she knows that there is no significant changes and she wanted to make sure that there was nothing else going on. Additionally, the patient currently declined a visual rectal exam.Explained all labs and diagnostic test results and that we will discharge the patient home and patient is to follow up with PCP in 1-2 days and return to the ED if symptoms worsen. Pt is agreeable to plan. - Lab Data Result diagrams: 06/29/17 19:15 06/29/17 19:15 Lab Results 06/29/17 06/29/17 Range/Units 19:15 19:15 WBC 2.1 L (3.8-10.6) k/uL RBC 3.62 L (3.80-5.40) m/uL Hgb 11.1 L (11.4-16.0) gm/dL Hct 33.2 L (34.0-46.0) % MCV 91.9 (80.0-100.0) fL MCH 30.6 (25.0-35.0) pg MCHC 33.3 (31.0-37.0) g/dL RDW 16.0 H (11.5-15.5) % Plt Count 21 L* (150-450) k/uL Neutrophils % 75 % Lymphocytes % 14 % Monocytes % 8 % Eosinophils % 2 % Basophils % 0 % Neutrophils # 1.6 (1.3-7.7) k/uL Lymphocytes # 0.3 L (1.0-4.8) k/uL Monocytes # 0.2 (0-1.0) k/uL Eosinophils # 0.0 (0-0.7) k/uL Basophils # 0.0 (0-0.2) k/uL Sodium 136 L (137-145) mmol/L Potassium 4.4 (3.5-5.1) mmol/L Chloride 93 L (98-107) mmol/L Carbon Dioxide 27 (22-30) mmol/L Anion Gap 16 mmol/L BUN 26 H (7-17) mg/dL Creatinine 5.80 H* (0.52-1.04) mg/dL Est GFR (CKD-EPI)AfAm 10 (>60 ml/min/1.73 sqM) Est GFR (CKD-EPI)NonAf 9 (>60 ml/min/1.73 sqM) Glucose 217 H (74-99) mg/dL Calcium 7.9 L (8.4-10.2) mg/dL Magnesium 1.9 (1.6-2.3) mg/dL Total Bilirubin 1.7 H (0.2-1.3) mg/dL AST 32 (14-36) U/L ALT 32 (9-52) U/L Alkaline Phosphatase 171 H (38-126) U/L Total Protein 6.9 (6.3-8.2) g/dL Albumin 3.6 (3.5-5.0) g/dL Lipase 116 (23-300) U/L Disposition Clinical Impression: Thrombocytopenia, Leukopenia, Ascites, ESRD (end stage renal disease) on dialysis Disposition: HOME SELF-CARE Condition: Good Instructions: Amyloidosis (ED) Is patient prescribed a controlled substance at d/c from ED?: No Referrals: None,Stated [Primary Care Provider] - 1-2 days Time of Disposition: 21:20
[2017-06-29 19:27] LABS: Basophils % (A) 0 %; Eosinophils % (A) 2 %; HCT 33.2 % (34.0-46.0); HGB 11.1 gm/dL (11.4-16.0); Lymphocytes # (A) 0.3 k/uL (1.0-4.8); Lymphocytes % (A) 14 %; MCH 30.6 pg (25.0-35.0); MCHC 33.3 g/dL (31.0-37.0); MCV 91.9 fL (80.0-100.0); Mean Platelet Volume 8.7; Monocytes # (A) 0.2 k/uL (0-1.0); Monocytes % (A) 8 %; Neutrophils # (A) 1.6 k/uL (1.3-7.7); Neutrophils % (A) 75 %; RBC 3.62 m/uL (3.80-5.40); WBC 2.1 k/uL (3.8-10.6)
[2017-06-29 19:38] LABS: Platelet Count 21 k/uL (150-450)
[2017-06-29 19:56] LABS: Calcium 7.9 mg/dL (8.4-10.2); Magnesium 1.9 mg/dL (1.6-2.3); Potassium 4.4 mmol/L (3.5-5.1); Total Bilirubin 1.7 mg/dL (0.2-1.3); Total Protein 6.9 g/dL (6.3-8.2)
[2017-06-29 20:08] LABS: Albumin 3.6 g/dL (3.5-5.0)
--- NOTE | 2017-06-29 20:20 | CT ---
EXAMINATION TYPE: CT abdomen pelvis wo con DATE OF EXAM: 06/29/2017 COMPARISON: 10/05/2016 HISTORY: Pelvic and rectal pain. CT DLP: 1087 mGycm Automated exposure control for dose reduction was used. TECHNIQUE: Helical acquisition of images was performed from the lung bases through the pelvis. FINDINGS: The lung bases are clear. There is no pleural effusion. There is no pericardial effusion. Spleen is markedly enlarged and measures 22 cm. Liver shows no focal defect. There is dilated portal venous system. There is no evidence of a pancreatic mass. Gallbladder appears normal. There is no adrenal mass. Kidneys show no hydronephrosis. There is mesenteric edema. There is perirec jennie edema. I see no intestinal wall thickening. There is no evidence of a bowel obstruction. There is no sign of free air. The kidneys are small and measure approximate 7 x 3 cm. I see no bony destructi ve process. There is probably some varicose veins at the gastroesophageal junction. Exam is limited b y lack of intestinal contrast. IMPRESSION: MASSIVE SPLENOMEGALY. THERE IS DILATED PORTAL VENOUS SYSTEM CONSISTENT WITH PORTAL VENOUS HYPERTENSIO N. THERE IS MESENTERIC EDEMA CONSISTENT WITH CHRONIC VENOUS CONGESTION. PERIRECTAL EDEMA THAT PROBAB LY RELATES TO VENOUS CONGESTION RECTAL VARICES. SYMMETRIC RENAL ATROPHY. VENOUS CONGESTION IS SIGNIFICANTLY INCREASED COMPARED TO OLD CT SCAN. THERE IS CLEARING OF THE MILD ASCITES COMPARED TO OLD EXAM. THERE PROBABLY ESOPHAGEAL VARICES.
[2017-06-29 21:28] VITALS: BP 115/54; PULSE 71; TEMP 98.9
== END 2017-06-29 21:27 | disposition home or self-care (01) ==
LOC: EC 17:29
DX: D69.6 Thrombocytopenia, unspecified (principal); D72.819 Decreased white blood cell count, unspecified; N18.6 End stage renal disease; R18.8 Other ascites; R79.89 Other specified abnormal findings of blood chemistry; R16.1 Splenomegaly, not elsewhere classified; I86.8 Varicose veins of other specified sites; R60.0 Localized edema; I12.0 Hypertensive chronic kidney disease with stage 5 chronic kidney disease or end stage renal disease; K21.9 Gastro-esophageal reflux disease without esophagitis; E89.0 Postprocedural hypothyroidism; Z79.899 Other long term (current) drug therapy; Z88.0 Allergy status to penicillin; Z88.2 Allergy status to sulfonamides; Z85.850 Personal history of malignant neoplasm of thyroid; Z85.89 Personal history of malignant neoplasm of other organs and systems; Z87.898 Personal history of other specified conditions; Z98.890 Other specified postprocedural states; Z99.2 Dependence on renal dialysis; Z98.84 Bariatric surgery status
CPT/HCPCS: 36415; 74176; 80053; 83690; 83735; 85025; 99284

== ENCOUNTER 2017-12-28 12:26 | Emergency (ER) | payer MEDICARE, BC ==
--- NOTE | 2017-12-28 12:54 | ED ---
General Adult HPI - General Chief complaint: Weakness Stated complaint: lethargic, achey Source: patient Limitations: no limitations - History of Present Illness Initial comments: Dictation was produced using [employer] dictation software. please excuse any grammatical, word or spelling errors. 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 Patient states that on Sunday she received an immunosuppressive infusion and dialysis on the same day. This is very atypical for her. That night she began feeling generally weak and malaised. Patient states she was on Levaquin for recent sinusitis. She states that he did not take the medications as recommended and missed a few doses. She didn't resumed it another 3 days. States that her symptoms do not resolve at that time. Denies any sore throat, cough, chest pain abdominal pain. No nausea vomiting or diarrhea. The ROS documented in this emergency department record has been reviewed and confirmed by me. Those systems with pertinent positive or negative responses have been documented in the HPI. All other systems are other negative and/or noncontributory. - Related Data Home Medications Medication Instructions Recorded Confirmed Furosemide [Lasix] 40 mg PO DAILY 04/06/15 12/28/17 Carvedilol [Coreg*] 12.5 mg PO BID 06/06/16 12/28/17 rOPINIRole HCL [Requip] 1.5 mg PO HS 06/06/16 12/28/17 Omeprazole 40 mg PO BID 06/29/17 12/28/17 Acyclovir [Zovirax] 400 mg PO BID 12/28/17 12/28/17 Levothyroxine Sodium [Synthroid] 175 mcg PO DAILY 12/28/17 12/28/17 Allergies Allergy/AdvReac Type Severity Reaction Status Date / Time Sulfa (Sulfonamide Allergy Severe Anaphylaxis Verified 12/28/17 13:15 Antibiotics) Penicillins Allergy Intermediate Rash/Hives/ Verified 12/28/17 13:15 Nausea/Vomi ting Review of Systems ROS Statement: Those systems with pertinent positive or pertinent negative responses have been documented in the HPI. ROS Other: All systems not noted in ROS Statement are negative. Past Medical History Past Medical History: Blood Disorder, Cancer, GERD/Reflux, Hyperlipidemia, Hypertension, Pneumonia, Renal Disease, Thyroid Disorder Additional Past Medical History / Comment(s): ESRD-HEMO DYALISIS M/W/SUN, THYROID CANCER WITH THYROIDECTOMY ANDMETS TO LYMPHNODES-RADIOACTIVE IODINE, MTHFR GENE, Amyloidosis-causes low HGB/low platelets-had stem cell transplant July 2014, UTI, LOW GI BLEED, ESOPHAGEAL VARICIES, HEMORRHOIDS, THROMBOSIS R LOWER ARM FISTULA. History of Any Multi-Drug Resistant Organisms: None Reported Past Surgical History: Adenoidectomy, Section, Tonsillectomy, Tubal Ligation Additional Past Surgical History / Comment(s): 08/03/16 EGD/colonoscopy, THYROIDECTOMY AND REMOVED 9 LYMPH NODES REMOVED 4 OF WHICH A WERE POSITIVE FOR CA; OVARIAN CYST SURGERY. THOROCENTESIS June 2014, functional fistula right upper arm, thrombosed fistula R lower arm, BMAs/BXs. Past Anesthesia/Blood Transfusion Reactions: Motion Sickness, Postoperative Nausea & Vomiting (PONV) Additional Past Anesthesia/Blood Transfusion Reaction / Comment(s): Pt has received blood without reaction. Past Psychological History: Anxiety Smoking Status: Never smoker Past Alcohol Use History: None Reported Past Drug Use History: None Reported - Past Family History Father Family Medical History: Coronary Artery Disease (CAD), Diabetes Mellitus, Myocardial Infarction ([place]) Additional Family Medical History / Comment(s): AT AGE 59-[place] Mother Family Medical History: No Reported History General Exam - General Exam Comments Initial Comments: PHYSICAL EXAM: General Impression: Alert and oriented x3, not in acute distress HEENT: Normocephalic atraumatic, extra-ocular movements intact, pupils equal and reactive to light bilaterally, mucous membranes moist. Cardiovascular: Heart regular rate and rhythm, S1&S2 audible, no murmurs, rubs or gallops Chest: Lungs clear to auscultation bilaterally, no rhonchi, no wheeze, no rales Abdomen: Bowel sounds present, abdomen soft, non-tender, non-distended, no organomegaly Musculoskeletal: Pulses present and equal in all extremities, no peripheral edema Motor: Power 5/5 bilaterally, no focal deficits noted Neurological: CN II-XII grossly intact, no focal motor or sensory deficits noted Skin: Intact with no visualized rashes Psych: Normal affect and mood Limitations: no limitations Course Vital Signs 12/28/17 12:28 Temperature 97.6 F Pulse Rate 61 Respiratory 20 Rate Blood Pressure 124/82 O2 Sat by Pulse 99 Oximetry Medical Decision Making - Medical Decision Making ED course: 37-year-old female with past medical history of end-stage renal disease, amyloidosis on immunosuppressive therapy presents with 3 days of malaise. Vital signs upon arrival are within acceptable limits.Lavatory evaluation obtained. CBC is slightly lower than patient's usual baseline. Patient is leukocytosis is 1.6. Patient usually 93 range. Hemoglobin is at baseline. Platelet counts is slightly depressed at 15 however patient usually in the 20 range. Coag panel unremarkable. Metabolic panel shows sodium 128. Patient mildly acidotic. Patient's creatinine of 10.10. Patient has not had dialysis today. Patient lab evaluation is likely secondary to delay in dialysis patient does have scheduled dialysis tomorrow. Discussed patient case in detail with oncology Dr. Sepulveda who is agreeable that patient is clear for discharge. Patient is motivated to be discharge. Patient told that her sodium is 128. She is told to add some salt her food. Patient is not anuric and can return if there are any issues. She is given intravenous fluids. Patient feels well to go home and is reliable and will return should she express any worsening symptoms. I believe this is a reasonable disposition for patient to be discharged given that she has good follow-up. Symptoms likely secondary to dehydration. EKG interpretation: Ventricular rate 62, normal sinus rhythm, WA interval 154, QS 92, QTc 468. No WA prolongation, no QTC prolongation, no ST or T-wave changes noted. EKG compared to no murmur 08/24/2016 showing no changes. Overall, this EKG is unremarkable - Lab Data Result diagrams: 12/28/17 13:00 12/28/17 13:00 Lab Results 12/28/17 12/28/17 12/28/17 Range/Units 12:59 13:00 13:00 WBC 1.6 L (3.8-10.6) k/uL RBC 2.79 L (3.80-5.40) m/uL Hgb 9.3 L (11.4-16.0) gm/dL Hct 27.4 L (34.0-46.0) % MCV 98.3 (80.0-100.0) fL MCH 33.5 (25.0-35.0) pg MCHC 34.1 (31.0-37.0) g/dL RDW 15.7 H (11.5-15.5) % Plt Count 15 L* (150-450) k/uL Neutrophils % 78 % Lymphocytes % 10 % Monocytes % 5 % Eosinophils % 2 % Basophils % 0 % Neutrophils # 1.2 L (1.3-7.7) k/uL Lymphocytes # 0.2 L (1.0-4.8) k/uL Monocytes # 0.1 (0-1.0) k/uL Eosinophils # 0.0 (0-0.7) k/uL Basophils # 0.0 (0-0.2) k/uL Macrocytosis Slight PT (9.0-12.0) sec INR (<1.2) APTT (22.0-30.0) sec Sodium 128 L (137-145) mmol/L Potassium 5.1 (3.5-5.1) mmol/L Chloride 89 L (98-107) mmol/L Carbon Dioxide 20 L (22-30) mmol/L Anion Gap 19 mmol/L BUN 99 H (7-17) mg/dL Creatinine 10.10 H* (0.52-1.04) mg/dL Est GFR (CKD-EPI)AfAm 5 (>60 ml/min/1.73 sqM) Est GFR (CKD-EPI)NonAf 4 (>60 ml/min/1.73 sqM) Glucose 147 H (74-99) mg/dL Plasma Lactic Acid Zion (0.7-2.0) mmol/L Calcium 7.3 L (8.4-10.2) mg/dL Total Bilirubin 1.8 H (0.2-1.3) mg/dL AST 13 L (14-36) U/L ALT 24 (9-52) U/L Alkaline Phosphatase 119 (38-126) U/L Total Protein 5.9 L (6.3-8.2) g/dL Albumin 3.5 (3.5-5.0) g/dL Urine HCG, Qual Not Detected (Not Detectd) 12/28/17 12/28/17 Range/Units 13:00 13:00 WBC (3.8-10.6) k/uL RBC (3.80-5.40) m/uL Hgb (11.4-16.0) gm/dL Hct (34.0-46.0) % MCV (80.0-100.0) fL MCH (25.0-35.0) pg MCHC (31.0-37.0) g/dL RDW (11.5-15.5) % Plt Count (150-450) k/uL Neutrophils % % Lymphocytes % % Monocytes % % Eosinophils % % Basophils % % Neutrophils # (1.3-7.7) k/uL Lymphocytes # (1.0-4.8) k/uL Monocytes # (0-1.0) k/uL Eosinophils # (0-0.7) k/uL Basophils # (0-0.2) k/uL Macrocytosis PT 11.1 (9.0-12.0) sec INR 1.2 H (<1.2) APTT 26.8 (22.0-30.0) sec Sodium (137-145) mmol/L Potassium (3.5-5.1) mmol/L Chloride (98-107) mmol/L Carbon Dioxide (22-30) mmol/L Anion Gap mmol/L BUN (7-17) mg/dL Creatinine (0.52-1.04) mg/dL Est GFR (CKD-EPI)AfAm (>60 ml/min/1.73 sqM) Est GFR (CKD-EPI)NonAf (>60 ml/min/1.73 sqM) Glucose (74-99) mg/dL Plasma Lactic Acid Zion 1.0 (0.7-2.0) mmol/L Calcium (8.4-10.2) mg/dL Total Bilirubin (0.2-1.3) mg/dL AST (14-36) U/L ALT (9-52) U/L Alkaline Phosphatase (38-126) U/L Total Protein (6.3-8.2) g/dL Albumin (3.5-5.0) g/dL Urine HCG, Qual (Not Detectd) Disposition Clinical Impression: Dehydration Disposition: HOME SELF-CARE Is patient prescribed a controlled substance at d/c from ED?: No Referrals: None,Stated [Primary Care Provider] - 1-2 days Maximilian Sepulveda MD [STAFF PHYSICIAN] - 1-2 days Sinai Rondon MD [STAFF PHYSICIAN] - 1-2 days Time of Disposition: 15:12
[2017-12-28] MEDS: SODIUM CHLORIDE 0.9% 500 ML 500 ML IV SCH (13:09)
--- NOTE | 2017-12-28 13:30 | XR ---
EXAMINATION TYPE: XR chest 2V DATE OF EXAM: 12/28/2017 COMPARISON: Prior chest x-ray 01/01/[address] 06/29/2017 HISTORY: Fever, weakness TECHNIQUE: Frontal and lateral views of the chest are obtained. FINDINGS: Patient is again rotated. There is blunting of the costophrenic angles which is chronic. In creased AP diameter chest is present. There is no focal air space opacity or pneumothorax seen. The cardiac silhouette size is within normal limits. The osseous structures are intact. IMPRESSION: No acute cardiopulmonary process.
[2017-12-28 13:31] LABS: Basophils % (A) 0 %; Eosinophils % (A) 2 %; HCT 27.4 % (34.0-46.0); HGB 9.3 gm/dL (11.4-16.0); Lymphocytes # (A) 0.2 k/uL (1.0-4.8); Lymphocytes % (A) 10 %; MCH 33.5 pg (25.0-35.0); MCHC 34.1 g/dL (31.0-37.0); MCV 98.3 fL (80.0-100.0); Macrocytosis Slight; Mean Platelet Volume 8.8; Monocytes # (A) 0.1 k/uL (0-1.0); Monocytes % (A) 5 %; Neutrophils # (A) 1.2 k/uL (1.3-7.7); Neutrophils % (A) 78 %; RBC 2.79 m/uL (3.80-5.40); RDW 15.7 % (11.5-15.5); WBC 1.6 k/uL (3.8-10.6)
[2017-12-28 13:41] LABS: Platelet Count 15 k/uL (150-450)
[2017-12-28 13:42] LABS: INR 1.2 (<1.2); Partial Thromboplastin Time 26.8 sec (22.0-30.0); Prothrombin Time 11.1 sec (9.0-12.0)
[2017-12-28 13:43] LABS: Albumin 3.5 g/dL (3.5-5.0); Calcium 7.3 mg/dL (8.4-10.2); Potassium 5.1 mmol/L (3.5-5.1); Total Bilirubin 1.8 mg/dL (0.2-1.3); Total Protein 5.9 g/dL (6.3-8.2)
[2017-12-28 15:24] VITALS: BP 108/61; PULSE 60; RESP 18; TEMP 98.5
== END 2017-12-28 15:24 | disposition home or self-care (01) ==
LOC: EC 12:26
DX: E86.0 Dehydration (principal); K21.9 Gastro-esophageal reflux disease without esophagitis; E78.5 Hyperlipidemia, unspecified; I12.0 Hypertensive chronic kidney disease with stage 5 chronic kidney disease or end stage renal disease; N18.6 End stage renal disease; E07.9 Disorder of thyroid, unspecified; F41.9 Anxiety disorder, unspecified; Z99.2 Dependence on renal dialysis; Z85.850 Personal history of malignant neoplasm of thyroid; Z85.89 Personal history of malignant neoplasm of other organs and systems; Z79.899 Other long term (current) drug therapy; Z88.0 Allergy status to penicillin; Z88.2 Allergy status to sulfonamides
CPT/HCPCS: 36415; 71046; 80053; 81025; 83605; 85025; 85610; 85730; 87040; 93005; 96360; 96361; 99285

== ENCOUNTER 2017-12-31 12:22 | Inpatient (IN) | payer MEDICARE, BC ==
[2017-12-31] MEDS ORDERED: SODIUM CHLORIDE 0.9% 1,000 ML IV STA (12:45)
[2017-12-31] MEDS ORDERED: ONDANSETRON 4 MG/2 ML VIAL IVP STA (13:17)
--- NOTE | 2017-12-31 13:18 | ED ---
Nausea/Vomiting/Diarrhea HPI - General Chief complaint: Nausea/Vomiting/Diarrhea Stated complaint: vomiting Time Seen by Provider: 12/31/17 12:29 Source: patient, RN notes reviewed, old records reviewed Mode of arrival: ambulatory Limitations: no limitations - History of Present Illness Initial comments: 29-year-old female with history of dialysis present emergency department with chief complaint of by nausea. She reports she vomited after receiving dialysis today, and has had multiple episodes of vomiting afterward. She is a renal failure due to history of amyloidosis. She is on immunosuppressants. Patient denies abdominal pain. Patient complains of some mild epigastric discomfort due to vomiting. She has a history of esophageal varices. She states that she had no blood in her emesis. - Related Data Home Medications Medication Instructions Recorded Confirmed Furosemide [Lasix] 40 mg PO DAILY 04/06/15 12/31/17 Carvedilol [Coreg*] 12.5 mg PO BID 06/06/16 12/31/17 rOPINIRole HCL [Requip] 1.5 mg PO HS 06/06/16 12/31/17 Omeprazole 40 mg PO BID 06/29/17 12/31/17 Acyclovir [Zovirax] 400 mg PO BID 12/28/17 12/31/17 Levothyroxine Sodium [Synthroid] 175 mcg PO DAILY 12/28/17 12/31/17 Allergies Allergy/AdvReac Type Severity Reaction Status Date / Time Sulfa (Sulfonamide Allergy Severe Anaphylaxis Verified 12/31/17 13:10 Antibiotics) Penicillins Allergy Intermediate Rash/Hives/ Verified 12/31/17 13:10 Nausea/Vomi ting Review of Systems ROS Statement: Those systems with pertinent positive or pertinent negative responses have been documented in the HPI. ROS Other: All systems not noted in ROS Statement are negative. Past Medical History Past Medical History: Blood Disorder, Cancer, GERD/Reflux, Hyperlipidemia, Hypertension, Pneumonia, Renal Disease, Thyroid Disorder Additional Past Medical History / Comment(s): ESRD-HEMO DYALISIS M/W/SUN, THYROID CANCER WITH THYROIDECTOMY ANDMETS TO LYMPHNODES-RADIOACTIVE IODINE, MTHFR GENE, Amyloidosis-causes low HGB/low platelets-had stem cell transplant July 2014, UTI, LOW GI BLEED, ESOPHAGEAL VARICIES, HEMORRHOIDS, THROMBOSIS R LOWER ARM FISTULA. History of Any Multi-Drug Resistant Organisms: None Reported Past Surgical History: Adenoidectomy, Section, Tonsillectomy, Tubal Ligation Additional Past Surgical History / Comment(s): 08/03/16 EGD/colonoscopy, THYROIDECTOMY AND REMOVED 9 LYMPH NODES REMOVED 4 OF WHICH A WERE POSITIVE FOR CA; OVARIAN CYST SURGERY. THOROCENTESIS June 2014, functional fistula right upper arm, thrombosed fistula R lower arm, BMAs/BXs. Past Anesthesia/Blood Transfusion Reactions: Motion Sickness, Postoperative Nausea & Vomiting (PONV) Additional Past Anesthesia/Blood Transfusion Reaction / Comment(s): Pt has received blood without reaction. Past Psychological History: Anxiety Smoking Status: Never smoker Past Alcohol Use History: None Reported Past Drug Use History: None Reported - Past Family History Father Family Medical History: Coronary Artery Disease (CAD), Diabetes Mellitus, Myocardial Infarction ([place]) Additional Family Medical History / Comment(s): AT AGE 59-[place] Mother Family Medical History: No Reported History General Exam - General Exam Comments Initial Comments: This is a 37-year-old female. Patient does not appear to be in any acute distress. Limitations: no limitations General appearance: alert, in no apparent distress Head exam: Present: atraumatic, normocephalic, normal inspection Eye exam: Present: normal appearance, PERRL, EOMI. Absent: scleral icterus, conjunctival injection, periorbital swelling ENT exam: Present: normal exam Neck exam: Present: normal inspection. Absent: tenderness, meningismus, lymphadenopathy Respiratory exam: Present: normal lung sounds bilaterally. Absent: respiratory distress, wheezes, rales, rhonchi, stridor Cardiovascular Exam: Present: regular rate, normal rhythm, normal heart sounds. Absent: systolic murmur, diastolic murmur, rubs, gallop, clicks GI/Abdominal exam: Present: soft, normal bowel sounds. Absent: distended, tenderness, guarding, rebound, rigid Extremities exam: Present: normal inspection, full ROM, normal capillary refill. Absent: tenderness, pedal edema, joint swelling, calf tenderness Back exam: Present: normal inspection Neurological exam: Present: alert, oriented X3, CN II-XII intact Psychiatric exam: Present: normal affect, normal mood Skin exam: Present: warm, dry, intact, normal color. Absent: rash Course Vital Signs 12/31/17 12/31/17 12/31/17 12:23 14:06 17:33 Temperature 98.1 F Pulse Rate 66 78 73 Respiratory 18 16 16 Rate Blood Pressure 146/55 147/73 154/72 O2 Sat by Pulse 100 100 100 Oximetry Medical Decision Making - Medical Decision Making 29-year-old female with a history of amyloidosis causing renal failure. Patient is a hemodialysis Patient. She presents today with nausea and vomiting. She was seen in the emergency department a few days ago for similar complaints. She was discharged almost going well up until today. After dialysis she's had multiple episodes of vomiting. Emergency Department chief had no vomiting after given Zofran. We did check lab work. Today. She does have a mild elevation of her bilirubin. We proceeded to to an ultrasound for gallbladder and liver. There is evidence of a partial hepatic venous thrombosis. With the partial occlusion we recommended MRCP. We did complete a CT with contrast. Because Patient is a dialysis Patient she needs to have dialysis tomorrow to remove the CT contrast. Patient CT shows evidence of mesenteric edema consistent with chronic venous congestion. I discussed the case with Dr. De La Vega at [facility] This is patient's vascular surgeon. She states with her low platelets of 16 that she is not a candidate for anticoagulation medication. She also does not require any intermediate intervention. This is likely a chronic finding. At this time Patient will be admitted for consultation nephrology. Needing dialysis tomorrow. Discussed findings with the Patient and she agrees. Still unable to determine the acute cause for the nausea and vomiting. - Lab Data Result diagrams: 12/31/17 12:56 12/31/17 12:56 Lab Results 12/31/17 12/31/17 Range/Units 12:56 12:56 WBC 1.1 L* (3.8-10.6) k/uL RBC 2.98 L (3.80-5.40) m/uL Hgb 9.8 L (11.4-16.0) gm/dL Hct 29.2 L (34.0-46.0) % MCV 98.2 (80.0-100.0) fL MCH 32.9 (25.0-35.0) pg MCHC 33.5 (31.0-37.0) g/dL RDW 15.7 H (11.5-15.5) % Plt Count 16 L* (150-450) k/uL Neutrophils % 80 % Lymphocytes % 12 % Monocytes % 5 % Eosinophils % 1 % Basophils % 0 % Neutrophils # 0.9 L (1.3-7.7) k/uL Lymphocytes # 0.1 L (1.0-4.8) k/uL Monocytes # 0.1 (0-1.0) k/uL Eosinophils # 0.0 (0-0.7) k/uL Basophils # 0.0 (0-0.2) k/uL Macrocytosis Slight Sodium 136 L (137-145) mmol/L Potassium 4.2 (3.5-5.1) mmol/L Chloride 94 L (98-107) mmol/L Carbon Dioxide 28 (22-30) mmol/L Anion Gap 14 mmol/L BUN 19 H (7-17) mg/dL Creatinine 3.87 H (0.52-1.04) mg/dL Est GFR (CKD-EPI)AfAm 16 (>60 ml/min/1.73 sqM) Est GFR (CKD-EPI)NonAf 14 (>60 ml/min/1.73 sqM) Glucose 183 H (74-99) mg/dL Calcium 8.5 (8.4-10.2) mg/dL Total Bilirubin 2.4 H (0.2-1.3) mg/dL AST 22 (14-36) U/L ALT 22 (9-52) U/L Alkaline Phosphatase 119 (38-126) U/L Total Protein 6.3 (6.3-8.2) g/dL Albumin 3.7 (3.5-5.0) g/dL Amylase 46 (30-110) U/L Lipase 87 (23-300) U/L - Radiology Data Radiology results: report reviewed Hepatic cirrhosis 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 Further evaluation with MRCP is recommended for intrahepatic biliary ductal dilation. CT abdomen and pelvis shows massive splenomegaly similar to last exam. Symmetric renal atrophy. No renal obstruction and esophageal varices noted. Mild mesenteric edema. New compared to last exam clearing of the perirectal edema. There is no ascites. There is probably a new gastric wall thickening. Varices not significantly different. Patient's mesenteric edema consistent with chronic venous congestion unchanged. Disposition Clinical Impression: Primary amyloidosis of kidney, Dehydration, Hepatic vein obstruction, Dialysis patient, Ascites Disposition: ADMITTED IP TO THIS HOSP Condition: Stable Is patient prescribed a controlled substance at d/c from ED?: No Referrals: None,Stated [Primary Care Provider] - 1-2 days Time of Disposition: 18:52
[2017-12-31 13:28] LABS: Basophils % (A) 0 %; Eosinophils % (A) 1 %; HCT 29.2 % (34.0-46.0); HGB 9.8 gm/dL (11.4-16.0); Lymphocytes # (A) 0.1 k/uL (1.0-4.8); Lymphocytes % (A) 12 %; MCH 32.9 pg (25.0-35.0); MCHC 33.5 g/dL (31.0-37.0); MCV 98.2 fL (80.0-100.0); Macrocytosis Slight; Mean Platelet Volume 8.8; Monocytes # (A) 0.1 k/uL (0-1.0); Monocytes % (A) 5 %; Neutrophils # (A) 0.9 k/uL (1.3-7.7); Neutrophils % (A) 80 %; RBC 2.98 m/uL (3.80-5.40); RDW 15.7 % (11.5-15.5)
[2017-12-31 13:32] LABS: Albumin 3.7 g/dL (3.5-5.0); Calcium 8.5 mg/dL (8.4-10.2); Potassium 4.2 mmol/L (3.5-5.1); Total Bilirubin 2.4 mg/dL (0.2-1.3); Total Protein 6.3 g/dL (6.3-8.2)
[2017-12-31 13:33] LABS: Platelet Count 16 k/uL (150-450); WBC 1.1 k/uL (3.8-10.6)
--- NOTE | 2017-12-31 15:27 | US ---
EXAMINATION TYPE: US gallbladder DATE OF EXAM: 12/31/2017 COMPARISON: 06/29/2017 CLINICAL HISTORY: Pain. Hx chemo, enlarged liver per patient. Abn labs. EXAM MEASUREMENTS: Liver Length: 15.0 cm Gallbladder Wall: 0.3 cm CBD: 0.4 cm CHD: 0.5 cm Right Kidney: 6.89 x 2.5 x 2.2 cm Pancreas: Unremarkable Liver: Cirrhotic morphology of the liver. Mild intrahepatic biliary dilatation. Nonoccluding main po rtal vein echogenic thrombus with peripheral vascular flow is seen on image 40 is 83. Gallbladder: wnl Evidence for sonographic Contreras's sign: neg CBD: wnl Right Kidney: appears small in size and echogenic with cortical renal thinning IMPRESSION: 1. 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 Further evaluation with MRCP is hannah mmended for the intrahepatic biliary ductal dilatation. 2. Sequela of right medical renal disease.
[2017-12-31] MEDS: SODIUM CHLORIDE 0.9% 1,000 ML IV SCH (17:07)
--- NOTE | 2017-12-31 17:11 | CT ---
EXAMINATION TYPE: CT abdomen pelvis w con DATE OF EXAM: 12/31/2017 COMPARISON: 06/29/2017 HISTORY: Abdominal pain with nausea and weakness CT DLP: 1203.8 mGycm Automated exposure control for dose reduction was used. TECHNIQUE: Helical acquisition of images was performed from the lung bases through the pelvis. CONTRAST: Performed without Oral Contrast and with IV Contrast, patient injected with 100 mL of Isovue 300. FINDINGS: Lung bases are clear of consolidation. There is no pleural effusion. Spleen is enlarged and measures 22 cm in length. Liver is not enlarged. There is no evidence of pancreatic mass. Gallbladder has norm al size. There is minimal upper abdominal mesenteric edema. There are few prominent vessels at the ga stroesophageal junction. This is consistent with portal venous hypertension. There is no adrenal mass. Kidneys are small. There is no hydronephrosis. Kidneys only measures 6.5 cm in length. I see no retroperitoneal adenopathy. Ureters are not dilated. There is no hydronephrosis. There is very little contrast in the kidneys on the delayed images consistent with renal failure. Th ere is small amount of fluid around the liver. There is no evidence of a bowel obstruction. There is no sign of free air. Bladder distends smoothly. There is no inguinal hernia. The lumbar spine is inta ct. Bony pelvis appears intact. I see no bony destructive process. Uterus is anteverted. There is a s mall incarcerated umbilical hernia. This measures 1.5 cm. The wall of the stomach appears to have variable thickening in the body and fundus. IMPRESSION: THERE IS MASSIVE SPLENOMEGALY SIMILAR TO LAST EXAM. SYMMETRIC RENAL ATROPHY. NO RENAL OBSTRUCTION. ES OPHAGEAL VARICES. MILD MESENTERIC EDEMA. THERE IS COMPARED TO LAST EXAM CLEARING OF THE PERIRECTAL ED KASHMIR. THERE IS NEW ASCITES. THERE IS PROBABLY A NEW GASTRIC WALL THICKENING. VARICES NOT SIGNIFICANTLY DIFFERENT. MESENTERIC EDEMA CONSISTENT WITH CHRONIC VENOUS CONGESTION UNCHANGED. UPPER ABDOMINAL MESENTERIC EDEMA. THERE IS MILD ASCITES.
[2017-12-31] MEDS ORDERED: LORazepam 2 MG/ML INJ IV STA (17:23)
[2017-12-31] MEDS ORDERED: ACETAMINOPHEN TAB 325 MG TAB PO PRN (19:01)
[2017-12-31] MEDS ORDERED: NALOXONE 0.4 MG/ML 1 ML VIAL IV PRN (19:01)
[2017-12-31] MEDS ORDERED: IBUPROFEN 400 MG TAB PO PRN (19:01)
[2017-12-31] MEDS ORDERED: HYDROmorphone 1 MG/ML 1 ML SYRINGE IVP PRN ×2 (19:01)
[2017-12-31] MEDS ORDERED: NON-FORMULARY DRUG (Omeprazole [Omeprazole] 40 MG) PO SCH (21:00)
[2017-12-31] MEDS: CARVEDILOL 12.5 MG TAB PO SCH (21:48)
[2017-12-31] MEDS: ACYCLOVIR 200 MG CAP PO SCH (21:48)
[2018-01-01] MEDS: SODIUM CHLORIDE 0.9% 1,000 ML IV SCH ×2 (03:41→21:51)
[2018-01-01] MEDS ORDERED: ONDANSETRON 4 MG/2 ML VIAL IVP STA (05:26)
[2018-01-01] MEDS: LEVOTHYROXINE 75 MCG TAB PO SCH (05:34)
[2018-01-01] MEDS: LEVOTHYROXINE 100 MCG TAB PO SCH (05:34)
[2018-01-01] MEDS ORDERED: PANTOPRAZOLE 40 MG/10 ML VIAL IV SCH (09:00)
[2018-01-01] MEDS: ACYCLOVIR 200 MG CAP PO SCH ×2 (09:03→20:21)
[2018-01-01] MEDS: FUROSEMIDE 40 MG TAB PO SCH (09:03)
[2018-01-01] MEDS: CARVEDILOL 12.5 MG TAB PO SCH ×2 (09:03→18:32)
--- NOTE | 2018-01-01 10:14 | P.NPCON ---
History of Present Illness - Reason for Consult end stage renal disease - History of Present Illness Reason for consultation: End-stage renal disease History of present illness: Patient is a 37-year-old female seen in renal consultation for end-stage renal disease. She is maintained on hemodialysis on a Sunday schedule for left upper extremity AV fistula. Patient presented to the hospital with nausea vomiting that began after dialysis yesterday. Patient states she hasn't been feeling well for about a week now. She had a gallbladder ultrasound done which revealed nonocclusive thrombus of the hepatic vein as well as intraductal biliary dilatation. She had a CAT scan with IV contrast which revealed ascites along with gastric wall thickening. She is currently maintained on IV fluids. Denies chest pain or shortness of breath. Also admits to loose bowel movements. Denies fever or chills. Hemodynamically stable. Patient has history of amyloidosis and is maintained on chemotherapy. Patient follows for amyloidosis at [facility]. Vital signs are stable. General: The patient appeared well nourished and normally developed. HEENT: Head exam is unremarkable. Neck is without jugular venous distension. LUNGS: Lungs are clear to auscultation and percussion. Breath sounds decreased. HEART: Rate and Rhythm are regular. First and second heart sounds normal. No murmurs, rubs or gallops. ABDOMEN: Abdominal exam reveals normal bowel sounds. Non-tender and non- distended. No evidence of peritonitis. EXTREMITITES: No clubbing, cyanosis, or edema. Past Medical History Past Medical History: Blood Disorder, Cancer, GERD/Reflux, Hyperlipidemia, Hypertension, Pneumonia, Renal Disease, Thyroid Disorder Additional Past Medical History / Comment(s): ESRD-HEMO DYALISIS //SUN, THYROID CANCER WITH THYROIDECTOMY ANDMETS TO LYMPHNODES-RADIOACTIVE IODINE, MTHFR GENE, Amyloidosis-causes low HGB/low platelets-had stem cell transplant July 2014, UTI, LOW GI BLEED, ESOPHAGEAL VARICIES, HEMORRHOIDS, THROMBOSIS R LOWER ARM FISTULA. History of Any Multi-Drug Resistant Organisms: None Reported Past Surgical History: Adenoidectomy, Section, Tonsillectomy, Tubal Ligation Additional Past Surgical History / Comment(s): 08/03/16 EGD/colonoscopy, THYROIDECTOMY AND REMOVED 9 LYMPH NODES REMOVED 4 OF WHICH A WERE POSITIVE FOR CA; OVARIAN CYST SURGERY. THOROCENTESIS June 2014, functional fistula right upper arm, thrombosed fistula R lower arm, BMAs/BXs. Past Anesthesia/Blood Transfusion Reactions: Motion Sickness, Postoperative Nausea & Vomiting (PONV) Additional Past Anesthesia/Blood Transfusion Reaction / Comment(s): Pt has received blood without reaction. Past Psychological History: Anxiety Additional Psychological History / Comment(s): XANAX NEEDED. Pt resides with her spouse and 2 children ages 5 and 8yrs. She is independent. Smoking Status: Never smoker Past Alcohol Use History: None Reported Past Drug Use History: None Reported - Past Family History Father Family Medical History: Coronary Artery Disease (CAD), Diabetes Mellitus, Myocardial Infarction ([place]) Additional Family Medical History / Comment(s): AT AGE 59-[place] Mother Family Medical History: No Reported History Medications and Allergies Home Medications Medication Instructions Recorded Confirmed Type Furosemide [Lasix] 40 mg PO DAILY 04/06/15 12/31/17 History Carvedilol [Coreg*] 12.5 mg PO BID 06/06/16 12/31/17 History rOPINIRole HCL [Requip] 1.5 mg PO HS 06/06/16 12/31/17 History Omeprazole 40 mg PO BID 06/29/17 12/31/17 History Acyclovir [Zovirax] 400 mg PO BID 12/28/17 12/31/17 History Levothyroxine Sodium [Synthroid] 175 mcg PO DAILY 12/28/17 12/31/17 History Allergies Allergy/AdvReac Type Severity Reaction Status Date / Time Sulfa (Sulfonamide Allergy Severe Anaphylaxis Verified 12/31/17 13:10 Antibiotics) Penicillins Allergy Intermediate Rash/Hives/ Verified 12/31/17 13:10 Nausea/Vomi ting Physical Exam Vitals: Vital Signs Temp Pulse Pulse Resp BP BP Pulse Ox 12/31/17 23:30 97.9 F 67 16 106/69 100 12/31/17 19:09 72 16 133/62 100 12/31/17 17:33 73 16 154/72 100 12/31/17 14:06 78 16 147/73 100 12/31/17 12:23 98.1 F 66 18 146/55 100 Intake and Output 12/31/17 01/01/18 01/01/18 22:59 06:59 14:59 Intake Total 840 Balance 840 Intake: Intake, IV Titration 250 Amount Sodium Chloride 0.9% 1, 250 000 ml @ 100 mls/hr IV . Q10H [facility] Rx#:[id number] Oral 590 Other: Voiding Method Toilet # Bowel Movements 1 Results - Lab Results Most recent lab results Calcium 8.5 mg/dL (8.4-10.2) 12/31/17 12:56 12/31/17 12:56 12/31/17 12:56 Assessment and Plan Plan: Assessment: 1. End-stage renal disease maintained on hemodialysis on a Sunday schedule via left upper extremity AV fistula. 2. Nausea and vomiting. Possibly related to the intraductal biliary dilatation. 3. Amyloidosis maintained on chemotherapy as an outpatient. Patient follows out of [facility] in [place]. 4. Anemia of chronic kidney disease. 5. Chronic kidney disease mineral bone disease. 6. Pancytopenia related to amyloidosis and chemotherapy. Plan: 2 hour hemodialysis treatment today. Another treatment tomorrow per outpatient schedule. Check iron studies. Check phosphorus level. Decrease IV fluids to 60 mL an hour. Consider GI evaluation for further workup for biliary dilatation/portal vein thrombosis. Discontinue Motrin. Thank you for the consultation. I will continue to follow the patient with you during her hospital stay.
[2018-01-01] MEDS ORDERED: ONDANSETRON 4 MG/2 ML VIAL IVP PRN (15:41)
[2018-01-01] MEDS ORDERED: HYDROcodone/APAP 5-325MG 1 EACH TAB PO PRN (15:42)
[2018-01-01] MEDS ORDERED: TEMAZEPAM 15 MG CAP PO PRN (15:42)
[2018-01-01] MEDS ORDERED: ALPRAZolam 0.25 MG TAB PO PRN (15:42)
[2018-01-01 16:25] LABS: INR 1.3 (<1.2); Prothrombin Time 12.2 sec (9.0-12.0)
--- NOTE | 2018-01-01 17:29 | HP ---
HISTORY AND PHYSICAL CHIEF COMPLAINTS: Nausea, vomiting. HISTORY OF PRESENT ILLNESS: This 37-year-old woman with a past medical history of multiple medical problems, including history of GERD, hypertension, hyperlipidemia, history pneumonia, history of hypothyroidism, history of hemodialysis Sunday, Sunday, Sunday, history of thyroid cancer, thyroidectomy, history of lymphoma, history of stem cell transplant, being followed by no primary care physician in the outpatient setting, is receiving hemodialysis. The patient is having nausea and vomiting. The patient also has some dizziness. Because of concerns about dizziness and weakness, the patient came to [facility], was admitted for evaluation and treatment. There is no history of any fever, rigor or chills. No history of headache, loss of consciousness, seizures. Patient had ultrasound of the abdomen which showed hepatic cirrhosis with a nonocclusive thrombus in the main portal vein. Mid intrahepatic biliary duct dilatation and sequelae of the medical renal disease are also noted. A CT scan of the abdomen showed massive splenomegaly, and new ascites was also noted. The patient was admitted for further evaluation and treatment. The varices are not significantly different. There is no history of any fever, rigor or chills. No history of headache, loss of consciousness, seizures. PAST MEDICAL HISTORY: 1. Chronic renal failure, on hemodialysis. 2. History of GERD. 3. Hypertension. 4. Hyperlipidemia. 5. History of pneumonia. 6. History of adenoidectomy. 7. section. HOME MEDICATIONS: 1. Requip 1.5 mg at bedtime. 2. Omeprazole 40 mg p.o. b.i.d. 3. Levothyroxine 175 mcg p.o. daily. 4. Lasix 40 mg p.o. daily. 5. Coreg 12.5 mg daily. 6. Zovirax 400 mg p.o. b.i.d. ALLERGIES: SULFA, PENICILLIN. FAMILY HISTORY: History of coronary artery disease, diabetes mellitus, myocardial infarction in the family. SOCIAL HISTORY: No history of smoking. No history of alcohol intake. REVIEW OF SYSTEMS: ENT: No diminished hearing. No diminished vision. CARDIOVASCULAR SYSTEM: No angina, palpitations. RESPIRATORY SYSTEM: As mentioned earlier. GI: As mentioned earlier. : As mentioned earlier. NERVOUS SYSTEM: No numbness, weakness. ALLERGY/IMMUNOLOGY: No asthma, hayfever. MUSCULOSKELETAL: As mentioned earlier. HEMATOLOGY/ONCOLOGY: No history of anemia. ENDOCRINE: Hypothyroidism. CONSTITUTIONAL: As mentioned earlier. DERMATOLOGY: Negative. RHEUMATOLOGY: Negative. PSYCHIATRY: As mentioned earlier. PHYSICAL EXAMINATION: Patient is alert and oriented x3. Pulse is 67, blood pressure 106/69, respirations 16, temperature 97.9, pulse ox 100% on room air. HEENT: Conjunctivae normal. Oral mucosa moist. NECK: No jugular venous distention. No carotid bruit. No lymph node enlargement. CARDIOVASCULAR SYSTEM: S1, S2 muffled. RESPIRATORY SYSTEM: Breath sounds diminished at the bases. A few scattered rhonchi and crackles. ABDOMEN: Soft. Mild diffuse distention. Splenomegaly present. LEGS: No edema. No swelling. NERVOUS SYSTEM: Higher functions as mentioned earlier. Moves all 4 limbs. No focal motor or sensory deficit. LYMPHATICS: No lymph node palpable in neck, axillae or groin. SKIN: No ulcer, rash, bleeding. LABS: WBC 1.1, hemoglobin 9.8, platelets 16. Sodium 133, creatinine 3.87. ASSESSMENT: 1. Nausea, vomiting; possible acute gastritis. 2. Splenomegaly and possibly hepatic cirrhosis. 3. Possible nonocclusive thrombus of the main portal vein. 4. Pancytopenia. 5. Hyponatremia. 6. Chronic renal failure, on hemodialysis. 7. History of renal disease, stage IV. 8. Gastroesophageal reflux disease. 9. Hypertension. 10.Hyperlipidemia. 11.History of pneumonia. 12.History of hypothyroidism. 13.History of thyroid cancer with thyroidectomy. 14.History of esophageal varices. 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 16.History of amyloidosis. 17.History of MTHFR mutation. 18.History of anxiety. 19.FULL CODE. RECOMMENDATIONS AND DISCUSSION: In this 37-year-old woman who presented with multiple medical issues, at this time we will monitor the patient closely, continue the current medications, continue symptomatic treatment. Otherwise, continue to monitor. Obtain cultures. Protonix. Guarded prognosis because of multiple complex medical issues. Further recommendations to follow. Discussed with the patient at length. See orders for further details. MMODL / IJN: [id number] /
[2018-01-01] MEDS: CALCIUM ACETATE 667 MG CAP PO SCH ×2 (18:27→18:28)
[2018-01-01 19:15] LABS: Iron Saturation 14.29 (12.00-45.00)
[2018-01-01] MEDS: PANTOPRAZOLE 40 MG/10 ML VIAL IVP SCH (20:21)
[2018-01-01] MEDS ORDERED: HEPARIN SODIUM,PORCINE 5,000 UNIT/ML 1 ML VIAL SQ SCH (21:00)
[2018-01-02] MEDS: LEVOTHYROXINE 100 MCG TAB PO SCH (05:31)
[2018-01-02] MEDS: LEVOTHYROXINE 75 MCG TAB PO SCH (05:31)
[2018-01-02 06:15] LABS: Appearance,Urine Cloudy (Clear); Bacteria,Urine Moderate /hpf; Bilirubin,Urine Negative (Negative); Blood,Urine Negative (Negative); Color,Urine Yellow; Glucose,Urine (UA) 3+ (Negative); Ketones,Urine Negative (Negative); Leukocyte Esterase,Urine Negative (Negative); Mucus,Urine Rare /hpf; Nitrite,Urine Negative (Negative); Protein,Urine 3+ (Negative); RBC,Urine 1 /hpf (0-5); Specific Gravity,Urine 1.014 (1.001-1.035); Squamous Epithelial Cell,Urine 50 /hpf (0-4); Urobilinogen,Urine <2.0 mg/dL (<2.0); WBC,Urine 23 /hpf (0-5)
--- NOTE | 2018-01-02 07:34 | P.CONS ---
History of Present Illness - Reason for Consult Consult date: 01/01/18 Multiple Myeloma, Amyloidosis Requesting physician: Radha Gee - Chief Complaint Nausea, Vomting, Diarrhea - History of Present Illness Ms Morrow is a pleasant WF, who was in her usual state of health, when she went on vacation to [place] in 10/19. She developed problems with fatigue, some leg swelling, and nausea. This persisted, leading her to seek attention for the same on coming back to [place]. This revealed high creatinine, dyselectrolytemia, and low albumin. US from 10/27/13 showed no obstruction. The pt was admitted to [facility] and improved partially with hydration. She was seen by Dr Rondon for Nephrology, and underwent a Ct guided biopsy on 12/02/13, revealing amyloid deposition. There was a hint of kappa restriction, though definite free light chains were not detected. The case was discussed with Dr Rondon. Clinically, and by her extensive w/u, there was no evidence of an underlying inflammatory condition, indicating possible primary amyloidosis. She was thus referred here for further evaluation. Additional w/u was ordered , including bone marrow, labs, bone survey and ECHO. This revealed a monoclonal kappa restricted population of plasma cells, about 12% of total. Her kappa light chain levels were increased with a ratio of 4.48. Her ECHO showed some dilation of the left atrium, while the bone survey was normal. Her CT scan showed hepatosplenomegaly. She was felt to have primary light chain a amyloidosis, and was also [facility]. It was felt that she should be treated as an overt myeloma, given plasma cell percentage > 10%. I had initially planned on Velcade and decadron, and cytoxan was recommended to be added by [facility]. She was felt to be an appropriate candidate for alloBMT, and her twin sister was evaluated as a donor. She is s/p cycle 4. She then had an auto BMT in 07/20. She tolerated BMT well, with recovery on schedule. She has been follwoing with Dr Boston since at the [facility], and has not been on any active treatment. She had started hemodialysis on 02/18/14 and switched to CAPD on 05/13/14. She was placed back on HD due to trans- diaphragmmatic leak, in 07/20. She had a new AV graft placed in 07/20. She had developed a cough with some SOB, in late 10/20. CXR on 11/02/14 revealed a RLL pneumonia. She was started on PO Levaquin. She completed her course in mid 11/19. 02/08/15-Pt here for evaluation and follow up as we are carrying out orders from [facility]. She is currently receiving throacentesis for CAPD that was ineffective and leaked into her pleura-CAPD discontinued, she is now having HD, right arm fistula. She has had pneumonia x 2, she has had thoracentesis x 1. She was seen at [facility] on 01/26 and told that she still has pleural effusion and was told to have another throacentesis. She has chronically low platelets and requires leuko-poor and irradiated platelets for throacentesis. She is an autoBMT. The pt was seen in f/u on 03/05/15. s/p thoracentesis earlier in 02/20, with marked relief of symptoms. She is concerned about some early reaccumulation. She had a bone marrow in 07/2015, which was negative for any evidence of MM. She was admitted to [facility] in 07/22, for GI bleed. She was found to have esophageal varices on EGD, with no active bleeding. Post discharge, she has surgery for a RUE pseudoaneurysm in her graft, and then had an AV fistula placed , during 08/21. She had a bone marrow in 10/2016 showing no evidence of myeloma. She was seen by GI in the [facility]. She had banding x2, most recently in 06/22. Her last episode of obvious GI bleed was in 12/22 ( BRBPR and hematemesis) Her light chains had remained elevated, due to which she started Daratumumab per Dr Boston in 08/2017. She has completed 9 weekly infusions, and is now on a biweekly schedule. She was seen on 09/28/17, as she wanted to get her infusions here. She has been getting Daratumumab here since 09/18/17 She has not required a thoracentesis since early 2015. Her EF and orthopnea are improved, per her. Her most recent ECHO was in 05/23, and was normal per the pt. She was last seen by Dr. Sepulveda 12/2017. She was tolerating her every two week regimen well at that time. She was planning on following up with Dr. Boston on 01/23/18 and was switched to Daratuzumab q4 weeks 12/25/17. She now presents to [facility] with complaints of nausea, vomiting which she states began after diaylsis yesterday. She is maintained on hemodialysis on a Sunday for ESRD. She admits to feeling "not herself" the past week. Abdominal Ultrasound was completed which revealed nonocclusive thrombus of the hepatic vein as well as intraductal biliary dilatation. She had a CAT scan with IV contrast which revealed ascites along with gastric wall thickening. She admits to loose and softer stools worse recently. Denies fever or chills. Review of Systems A 14 point review of systems assessed and completed and all negative except HPI. Past Medical History Past Medical History: Blood Disorder, Cancer, GERD/Reflux, Hyperlipidemia, Hypertension, Pneumonia, Renal Disease, Thyroid Disorder Additional Past Medical History / Comment(s): ESRD-HEMO DYALISIS //SUN, THYROID CANCER WITH THYROIDECTOMY ANDMETS TO LYMPHNODES-RADIOACTIVE IODINE, MTHFR GENE, Amyloidosis-causes low HGB/low platelets-had stem cell transplant July 2014, UTI, LOW GI BLEED, ESOPHAGEAL VARICIES, HEMORRHOIDS, THROMBOSIS R LOWER ARM FISTULA. History of Any Multi-Drug Resistant Organisms: None Reported Past Surgical History: Adenoidectomy, Section, Tonsillectomy, Tubal Ligation Additional Past Surgical History / Comment(s): 08/03/16 EGD/colonoscopy, THYROIDECTOMY AND REMOVED 9 LYMPH NODES REMOVED 4 OF WHICH A WERE POSITIVE FOR CA; OVARIAN CYST SURGERY. THOROCENTESIS June 2014, functional fistula right upper arm, thrombosed fistula R lower arm, BMAs/BXs. Past Anesthesia/Blood Transfusion Reactions: Motion Sickness, Postoperative Nausea & Vomiting (PONV) Additional Past Anesthesia/Blood Transfusion Reaction / Comm: Pt has received blood without reaction. Past Psychological History: Anxiety Additional Psychological History / Comment(s): XANAX NEEDED. Pt resides with her spouse and 2 children ages 5 and 8yrs. She is independent. Smoking Status: Never smoker Past Alcohol Use History: None Reported Past Drug Use History: None Reported - Past Family History Father Family Medical History: Coronary Artery Disease (CAD), Diabetes Mellitus, Myocardial Infarction ([place]) Additional Family Medical History / Comment(s): AT AGE 59-[place] Mother Family Medical History: No Reported History Medications and Allergies Home Medications Medication Instructions Recorded Confirmed Type Furosemide [Lasix] 40 mg PO DAILY 04/06/15 12/31/17 History Carvedilol [Coreg*] 12.5 mg PO BID 06/06/16 12/31/17 History rOPINIRole HCL [Requip] 1.5 mg PO HS 06/06/16 12/31/17 History Omeprazole 40 mg PO BID 06/29/17 12/31/17 History Acyclovir [Zovirax] 400 mg PO BID 12/28/17 12/31/17 History Levothyroxine Sodium [Synthroid] 175 mcg PO DAILY 12/28/17 12/31/17 History Allergies Allergy/AdvReac Type Severity Reaction Status Date / Time Sulfa (Sulfonamide Allergy Severe Anaphylaxis Verified 12/31/17 13:10 Antibiotics) Penicillins Allergy Intermediate Rash/Hives/ Verified 12/31/17 13:10 Nausea/Vomi ting Physical Exam Vitals: Vital Signs Temp Pulse Pulse Resp BP BP Pulse Ox 01/01/18 15:00 98.0 F 68 16 100/59 100 12/31/17 23:30 97.9 F 67 16 106/69 100 12/31/17 19:09 72 16 133/62 100 12/31/17 17:33 73 16 154/72 100 Intake and Output 01/01/18 01/01/18 01/01/18 06:59 14:59 22:59 Output Total 200 Balance -200 Output: Urine 200 Other: Voiding Method Bedside Commode # Voids 2 # Bowel Movements 1 1 General appearance: alert, in no apparent distress Head exam: atraumatic, normocephalic Eye exam: normal appearance, PERRL, EOMI. ENT exam: no Thrush or mucocytis Neck exam:supple, trachea midline No lymphadenopathy Respiratory: normal lung sounds bilaterally Cardiovascular: RRR, S1S2 Abdominal soft, normal bowel sounds. Extremities: normal inspection, AV Fistula LUE Neurological alert, oriented X3, non-focal Psychiatric: normal affect, Calm, Cooperative normal mood Skin: warm, dry, intact, normal color. Results CBC & Chem 7: 01/02/18 07:11 01/02/18 07:11 Labs: Abnormal Lab Results - Last 24 Hours (Table) 01/01/18 01/01/18 01/01/18 Range/Units 15:57 15:57 15:57 ESR 25 H (0-20) mm/hr PT 12.2 H (9.0-12.0) sec INR 1.3 H (<1.2) C-Reactive Protein 41.5 H (<10.0) mg/L Assessment and Plan Plan: Assessment and Recommendations: 1. Multiple Myeloma: - Maintained on q2 week Daratunumab, now changed to every 4 weeks - Follows with Dr. Sepulveda and Dr. Boston [facility] 2. Amyloidosis: 3. Nausea, Vomiting, Diarrhea: - Burk Cultures 4. Pancytopenia - Secondary to Multiple Myeloma Treatment: - I have Discontinued Heparin, No Prophylaxis with platlet count less than 50K - Her Baseline has been 20-30K, 16K today. Monitor closely, transfuse if signs of bleeding. Hemoglobin is currently stable, no intervention required
[2018-01-02] MEDS: FUROSEMIDE 40 MG TAB PO SCH (07:58)
[2018-01-02] MEDS: ACYCLOVIR 200 MG CAP PO SCH ×2 (07:58→19:52)
[2018-01-02] MEDS: CARVEDILOL 12.5 MG TAB PO SCH ×2 (07:58→17:13)
[2018-01-02] MEDS: CALCIUM ACETATE 667 MG CAP PO SCH ×3 (07:58→17:13)
[2018-01-02] MEDS: PANTOPRAZOLE 40 MG/10 ML VIAL IVP SCH ×2 (07:59→19:52)
[2018-01-02 08:01] LABS: HCT 25.8 % (34.0-46.0); HGB 8.5 gm/dL (11.4-16.0); Hypochromasia Slight; MCH 33.8 pg (25.0-35.0); MCHC 33.1 g/dL (31.0-37.0); MCV 102.1 fL (80.0-100.0); Macrocytosis Slight; Mean Platelet Volume 9.1; RBC 2.53 m/uL (3.80-5.40); RDW 15.8 % (11.5-15.5)
[2018-01-02 08:26] LABS: WBC 0.7 k/uL (3.8-10.6)
[2018-01-02 08:27] LABS: Platelet Count 19 k/uL (150-450)
[2018-01-02 08:29] LABS: Albumin 3.1 g/dL (3.5-5.0); Calcium 7.5 mg/dL (8.4-10.2); Potassium 3.9 mmol/L (3.5-5.1); Total Bilirubin 1.8 mg/dL (0.2-1.3); Total Protein 5.5 g/dL (6.3-8.2)
[2018-01-02 08:48] LABS: Reticulocyte % 3.3 % (0.5-2.0)
[2018-01-02 08:56] LABS: Poikilocytosis (M) Present
[2018-01-02] MEDS ORDERED: PANTOPRAZOLE 40 MG TABLET PO SCH (09:00)
[2018-01-02 09:27] LABS: INR 1.4 (<1.2); Prothrombin Time 13.1 sec (9.0-12.0)
--- NOTE | 2018-01-02 10:03 | P.PN ---
Subjective Patient is seen in follow-up for end-stage renal disease. She is maintained on hemodialysis on a Sunday schedule. Currently seen while undergoing hemodialysis. Denies nausea or vomiting. Oral intake has improved. No active complaints at this time. Vital signs are stable. General: The patient appeared well nourished and normally developed. HEENT: Head exam is unremarkable. Neck is without jugular venous distension. LUNGS: Lungs are clear to auscultation and percussion. Breath sounds decreased. HEART: Rate and Rhythm are regular. First and second heart sounds normal. No murmurs, rubs or gallops. ABDOMEN: Abdominal exam reveals normal bowel sounds. Non-tender and non- distended. No evidence of peritonitis. EXTREMITITES: No clubbing, cyanosis, or edema. Objective - Vital Signs Vital signs: Vital Signs Temp 98.0 F 01/02/18 00:15 Pulse 68 01/02/18 00:15 Resp 16 01/02/18 00:15 BP 121/73 01/02/18 00:15 Pulse Ox 98 01/02/18 00:15 Intake & Output 01/01/18 01/02/18 01/02/18 18:59 06:59 18:59 Intake Total 1250 Output Total 200 Balance -200 1250 Intake: Intake, IV Titration 1250 Amount Sodium Chloride 0.9% 1, 1250 000 ml @ 100 mls/hr IV . Q10H [facility] Rx#:[id number] Output: Urine 200 Other: Voiding Method Bedside Commode # Voids 2 # Bowel Movements 1 - Labs CBC & Chem 7: 01/02/18 07:11 01/02/18 07:11 Labs: Abnormal Lab Results - Last 24 Hours (Table) 12/31/17 01/01/18 01/01/18 Range/Units 12:56 15:57 15:57 WBC (3.8-10.6) k/uL RBC (3.80-5.40) m/uL Hgb (11.4-16.0) gm/dL Hct (34.0-46.0) % MCV (80.0-100.0) fL RDW (11.5-15.5) % Plt Count (150-450) k/uL ESR 25 H (0-20) mm/hr Retic Count (0.5-2.0) % PT (9.0-12.0) sec INR (<1.2) BUN (7-17) mg/dL Creatinine (0.52-1.04) mg/dL Glucose (74-99) mg/dL Calcium (8.4-10.2) mg/dL Iron 35 L (50-170) ug/dL Ferritin 2150.9 H (10.0-291.0) ng/mL Total Bilirubin (0.2-1.3) mg/dL Lactate Dehydrogenase (313-618) U/L C-Reactive Protein 41.5 H (<10.0) mg/L Total Protein (6.3-8.2) g/dL Albumin (3.5-5.0) g/dL Urine Appearance (Clear) Urine Protein (Negative) Urine Glucose (UA) (Negative) Urine WBC (0-5) /hpf Ur Squamous Epith Cells (0-4) /hpf Urine Bacteria (None) /hpf Urine Mucus (None) /hpf 01/01/18 01/02/18 01/02/18 Range/Units 15:57 05:50 07:11 WBC 0.7 L* (3.8-10.6) k/uL RBC 2.53 L (3.80-5.40) m/uL Hgb 8.5 L (11.4-16.0) gm/dL Hct 25.8 L (34.0-46.0) % MCV 102.1 H (80.0-100.0) fL RDW 15.8 H (11.5-15.5) % Plt Count 19 L* (150-450) k/uL ESR (0-20) mm/hr Retic Count (0.5-2.0) % PT 12.2 H (9.0-12.0) sec INR 1.3 H (<1.2) BUN (7-17) mg/dL Creatinine (0.52-1.04) mg/dL Glucose (74-99) mg/dL Calcium (8.4-10.2) mg/dL Iron (50-170) ug/dL Ferritin (10.0-291.0) ng/mL Total Bilirubin (0.2-1.3) mg/dL Lactate Dehydrogenase (313-618) U/L C-Reactive Protein (<10.0) mg/L Total Protein (6.3-8.2) g/dL Albumin (3.5-5.0) g/dL Urine Appearance Cloudy H (Clear) Urine Protein 3+ H (Negative) Urine Glucose (UA) 3+ H (Negative) Urine WBC 23 H (0-5) /hpf Ur Squamous Epith Cells 50 H (0-4) /hpf Urine Bacteria Moderate H (None) /hpf Urine Mucus Rare H (None) /hpf 01/02/18 01/02/18 01/02/18 Range/Units 07:11 07:11 08:34 WBC (3.8-10.6) k/uL RBC (3.80-5.40) m/uL Hgb (11.4-16.0) gm/dL Hct (34.0-46.0) % MCV (80.0-100.0) fL RDW (11.5-15.5) % Plt Count (150-450) k/uL ESR (0-20) mm/hr Retic Count 3.3 H (0.5-2.0) % PT 13.1 H (9.0-12.0) sec INR 1.4 H (<1.2) BUN 23 H (7-17) mg/dL Creatinine 4.58 H (0.52-1.04) mg/dL Glucose 109 H (74-99) mg/dL Calcium 7.5 L (8.4-10.2) mg/dL Iron (50-170) ug/dL Ferritin (10.0-291.0) ng/mL Total Bilirubin 1.8 H (0.2-1.3) mg/dL Lactate Dehydrogenase 299 L (313-618) U/L C-Reactive Protein (<10.0) mg/L Total Protein 5.5 L (6.3-8.2) g/dL Albumin 3.1 L (3.5-5.0) g/dL Urine Appearance (Clear) Urine Protein (Negative) Urine Glucose (UA) (Negative) Urine WBC (0-5) /hpf Ur Squamous Epith Cells (0-4) /hpf Urine Bacteria (None) /hpf Urine Mucus (None) /hpf Assessment and Plan Plan: Assessment: 1. End-stage renal disease maintained on hemodialysis on a Sunday schedule via left upper extremity AV fistula. 2. Nausea and vomiting. Possibly related to the intraductal biliary dilatation versus viral gastroenteritis. 3. Amyloidosis maintained on chemotherapy as an outpatient. Patient follows out of [facility] in [place]. She has history of bone marrow transplant in 2014. 4. Anemia of chronic kidney disease. Iron deficiency noted. High ferritin level noted. 5. Chronic kidney disease mineral bone disease maintained on PhosLo. 6. Pancytopenia related to amyloidosis and chemotherapy. Oncology following. Plan: Currently seen while undergoing hemodialysis. Next treatment on Sunday. Hep-Lock IV fluids. Add Aranesp.
[2018-01-02] MEDS ORDERED: DARBEPOETIN ALFA 40 MCG/0.4 ML SYRINGE SQ SCH (10:15)
[2018-01-02] MEDS ORDERED: ALPRAZolam 0.5 MG TAB PO PRN (15:52)
--- NOTE | 2018-01-02 17:01 | P.PN ---
Subjective Progress Note Date: 01/02/18 Principal diagnosis: Multiple Myeloma Sondra seen in follow-up today, receiving Diaylsis, she is feeling ok, no acute signs of bleeding. Afebrile overnight Objective - Vital Signs Vital signs: Vital Signs Temp 98.2 F 01/02/18 14:51 Pulse 67 01/02/18 14:51 Resp 18 01/02/18 14:51 BP 106/57 01/02/18 14:51 Pulse Ox 100 01/02/18 14:51 Intake & Output 01/01/18 01/02/18 01/02/18 18:59 06:59 18:59 Intake Total 1250 Output Total 200 Balance -200 1250 Intake: Intake, IV Titration 1250 Amount Sodium Chloride 0.9% 1, 1250 000 ml @ 100 mls/hr IV . Q10H SAKINA Rx#:[id number] Output: Urine 200 Other: Voiding Method Bedside Commode # Voids 2 1 # Bowel Movements 1 - Exam General appearance: alert, in no apparent distress Head exam: atraumatic, normocephalic Eye exam: normal appearance, PERRL, EOMI. ENT exam: no Thrush or mucocytis Neck exam:supple, trachea midline No lymphadenopathy Respiratory: normal lung sounds bilaterally Cardiovascular: RRR, S1S2 Abdominal soft, normal bowel sounds. Extremities: normal inspection, AV Fistula LUE Neurological alert, oriented X3, non-focal Psychiatric: normal affect, Calm, Cooperative normal mood Skin: warm, dry, intact, normal color - Labs CBC & Chem 7: 01/02/18 07:11 01/02/18 07:11 Labs: Abnormal Lab Results - Last 24 Hours (Table) 12/31/17 01/01/18 01/02/18 Range/Units 12:56 15:57 05:50 WBC (3.8-10.6) k/uL RBC (3.80-5.40) m/uL Hgb (11.4-16.0) gm/dL Hct (34.0-46.0) % MCV (80.0-100.0) fL RDW (11.5-15.5) % Plt Count (150-450) k/uL ESR 25 H (0-20) mm/hr Retic Count (0.5-2.0) % PT (9.0-12.0) sec INR (<1.2) BUN (7-17) mg/dL Creatinine (0.52-1.04) mg/dL Glucose (74-99) mg/dL Calcium (8.4-10.2) mg/dL Phosphorus (2.5-4.5) mg/dL Iron 35 L (50-170) ug/dL Ferritin 2150.9 H (10.0-291.0) ng/mL Total Bilirubin (0.2-1.3) mg/dL Lactate Dehydrogenase (313-618) U/L Total Protein (6.3-8.2) g/dL Albumin (3.5-5.0) g/dL Urine Appearance Cloudy H (Clear) Urine Protein 3+ H (Negative) Urine Glucose (UA) 3+ H (Negative) Urine WBC 23 H (0-5) /hpf Ur Squamous Epith Cells 50 H (0-4) /hpf Urine Bacteria Moderate H (None) /hpf Urine Mucus Rare H (None) /hpf 01/02/18 01/02/18 01/02/18 Range/Units 07:11 07:11 07:11 WBC 0.7 L* (3.8-10.6) k/uL RBC 2.53 L (3.80-5.40) m/uL Hgb 8.5 L (11.4-16.0) gm/dL Hct 25.8 L (34.0-46.0) % MCV 102.1 H (80.0-100.0) fL RDW 15.8 H (11.5-15.5) % Plt Count 19 L* (150-450) k/uL ESR (0-20) mm/hr Retic Count 3.3 H (0.5-2.0) % PT (9.0-12.0) sec INR (<1.2) BUN 23 H (7-17) mg/dL Creatinine 4.58 H (0.52-1.04) mg/dL Glucose 109 H (74-99) mg/dL Calcium 7.5 L (8.4-10.2) mg/dL Phosphorus (2.5-4.5) mg/dL Iron (50-170) ug/dL Ferritin (10.0-291.0) ng/mL Total Bilirubin 1.8 H (0.2-1.3) mg/dL Lactate Dehydrogenase 299 L (313-618) U/L Total Protein 5.5 L (6.3-8.2) g/dL Albumin 3.1 L (3.5-5.0) g/dL Urine Appearance (Clear) Urine Protein (Negative) Urine Glucose (UA) (Negative) Urine WBC (0-5) /hpf Ur Squamous Epith Cells (0-4) /hpf Urine Bacteria (None) /hpf Urine Mucus (None) /hpf 01/02/18 01/02/18 Range/Units 07:11 08:34 WBC (3.8-10.6) k/uL RBC (3.80-5.40) m/uL Hgb (11.4-16.0) gm/dL Hct (34.0-46.0) % MCV (80.0-100.0) fL RDW (11.5-15.5) % Plt Count (150-450) k/uL ESR (0-20) mm/hr Retic Count (0.5-2.0) % PT 13.1 H (9.0-12.0) sec INR 1.4 H (<1.2) BUN (7-17) mg/dL Creatinine (0.52-1.04) mg/dL Glucose (74-99) mg/dL Calcium (8.4-10.2) mg/dL Phosphorus 5.7 H (2.5-4.5) mg/dL Iron (50-170) ug/dL Ferritin (10.0-291.0) ng/mL Total Bilirubin (0.2-1.3) mg/dL Lactate Dehydrogenase (313-618) U/L Total Protein (6.3-8.2) g/dL Albumin (3.5-5.0) g/dL Urine Appearance (Clear) Urine Protein (Negative) Urine Glucose (UA) (Negative) Urine WBC (0-5) /hpf Ur Squamous Epith Cells (0-4) /hpf Urine Bacteria (None) /hpf Urine Mucus (None) /hpf Microbiology - Last 24 Hours (Table) 01/02/18 05:50 Urine Culture - Preliminary Urine,Clean Catch Assessment and Plan Plan: Assessment and Recommendations: 1. Multiple Myeloma: - Maintained on q2 week Daratunumab, now changed to every 4 weeks - Follows with Dr. Sepulveda and Dr. Ludy MARINO 2. Amyloidosis: 3. Nausea, Vomiting, Diarrhea: - Burk Cultures 4. Pancytopenia - Secondary to Multiple Myeloma Treatment: - I have Discontinued Heparin, No Prophylaxis with platlet count less than 50K - Her Baseline has been 20-30K, 16K today. Monitor closely, transfuse if signs of bleeding. Hemoglobin is currently stable, no intervention required 5. ESRD: On HD M,W,F - Nephrology Following Physician Attestation: I have completed the full history and physical and agree with above by Aimee Webb NP. Dictated as a ascribe
--- NOTE | 2018-01-02 17:03 | PN ---
PROGRESS NOTE DATE OF SERVICE: 01/02/2018 This 37-year-old woman who was admitted with recurrent nausea, vomiting, also had splenomegaly, possible hepatic cirrhosis. Patient is feeling slightly better today. Hemodialysis being continued. Abdominal pelvis CAT scan is noted. PAST MEDICAL HISTORY: Reviewed. REVIEW OF SYSTEMS: CARDIOVASCULAR: No angina or palpitations. Respirations: As mentioned earlier. GI: As mentioned earlier. : No dysuria or hematuria. CURRENT MEDICATIONS ARE: Reviewed and include: 1. Tylenol 650 q.6h p.r.n. 2. [place] 5 mg q6h p.r.n. 3. Zovirax 400 mg p.o. b.i.d. 4. Xanax 0.25 t.i.d. 5. PhosLo 667 t.i.d. 6. Coreg 12.5 mg b.i.d. 7. Iron sulfate 40 mg daily. 8. Lasix 40 mg p.o. daily. 9. Dilaudid 0.5 mg q.3 p.r.n. 10.Synthroid 175 mcg p.o. daily. 11.Narcan 0.2 q.2h p.r.n. 12.Zofran p.r.n. 13.Protonix 40 mg IV b.i.d. 14.Requip 1.5 mg q.h.s. 15.Restoril 15 mg q.h.s. p.r.n. PHYSICAL EXAM: Patient is alert, oriented x3, pulse 66, blood pressure 140/77, respirations 18, temperature 98.6, pulse ox 94% on room air. HEENT: Conjunctivae normal. Oral mucosa moist. Neck is no jugular venous distention, no carotid bruit. No lymph node enlargement. Cardiovascular: S1, S2 muffled. Respirations: Breath sounds diminished in the bases. Bilateral scattered rhonchi and crackles. ABDOMEN: Soft, distention present otherwise. LEGS: No edema, no swelling. CENTRAL NERVOUS SYSTEM: Diffusely weak. LAB: WBC 0.7, hemoglobin is 8.4, platelets of 19, and INR is 1.4. Creatinine is 4.58 and albumin is 3.1. UA noted. ASSESSMENT: 1. Nausea, vomiting, possible acute gastritis. 2. Splenomegaly and possible hepatic cirrhosis. 3. Possible nonocclusive thrombus of the main hepatic portal vein. 4. Pancytopenia. 5. Hyponatremia. 6. Chronic renal failure on hemodialysis. 7. Chronic renal disease stage IV. 8. Gastroesophageal reflux disease. 9. Hypertension. 10.Hyperlipidemia. 11.History of pneumonia. 12.History of hypothyroidism. 13.History of thyroid cancer with thyroidectomy. 14.History of cellulitis. 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 16.History of amyloidosis. 17.History of MTHFR mutation. 18.History of anxiety. 19.FULL CODE. RECOMMENDATIONS AND DISCUSSION: I recommend to continue current medications, management. Continue with monitoring, symptomatic treatment. Otherwise, at this time, I would recommend Gastroenterology consultation for possible cirrhosis of the liver. Otherwise repeat the rest of the medications and management. Advance diet. Continue the hemodialysis. Prognosis guarded because of multiple complex medical issues. Further recommendations to follow. MMODL / IJN: [id number] /
[2018-01-02] MEDS: SODIUM CHLORIDE 0.9% 1,000 ML IV SCH (20:44)
[2018-01-03] MEDS: LEVOTHYROXINE 100 MCG TAB PO SCH (05:51)
[2018-01-03] MEDS: LEVOTHYROXINE 75 MCG TAB PO SCH (05:51)
[2018-01-03] MEDS: ACYCLOVIR 200 MG CAP PO SCH (08:09)
[2018-01-03] MEDS: FUROSEMIDE 40 MG TAB PO SCH (08:09)
[2018-01-03] MEDS: CALCIUM ACETATE 667 MG CAP PO SCH ×2 (08:09→11:35)
[2018-01-03] MEDS: PANTOPRAZOLE 40 MG/10 ML VIAL IVP SCH (08:10)
[2018-01-03] MEDS: CARVEDILOL 12.5 MG TAB PO SCH (08:11)
[2018-01-03 08:14] VITALS: BP 114/56; PULSE 71; RESP 17; TEMP 98.7
--- NOTE | 2018-01-03 08:14 | P.PN ---
Subjective Patient is seen in follow-up for end-stage renal disease. She is maintained on hemodialysis on a Sunday schedule. Denies nausea or vomiting. Oral intake has improved. No active complaints at this time. She is eager to go home. No signs of active bleeding. Vital signs are stable. General: The patient appeared well nourished and normally developed. HEENT: Head exam is unremarkable. Neck is without jugular venous distension. LUNGS: Lungs are clear to auscultation and percussion. Breath sounds decreased. HEART: Rate and Rhythm are regular. First and second heart sounds normal. No murmurs, rubs or gallops. ABDOMEN: Abdominal exam reveals normal bowel sounds. Non-tender and non- distended. No evidence of peritonitis. EXTREMITITES: No clubbing, cyanosis, or edema. Objective - Vital Signs Vital signs: Vital Signs Temp 98.1 F 01/02/18 23:45 Pulse 65 01/02/18 23:45 Resp 16 01/02/18 23:45 BP 102/62 01/02/18 23:45 Pulse Ox 100 01/02/18 23:45 Intake & Output 01/02/18 01/03/18 01/03/18 18:59 06:59 18:59 Intake Total 100 Balance 100 Intake: Oral 100 Other: # Voids 1 - Labs CBC & Chem 7: 01/02/18 07:11 01/02/18 07:11 Labs: Abnormal Lab Results - Last 24 Hours (Table) 01/02/18 01/02/18 01/02/18 Range/Units 07:11 07:11 07:11 WBC 0.7 L* (3.8-10.6) k/uL RBC 2.53 L (3.80-5.40) m/uL Hgb 8.5 L (11.4-16.0) gm/dL Hct 25.8 L (34.0-46.0) % MCV 102.1 H (80.0-100.0) fL RDW 15.8 H (11.5-15.5) % Plt Count 19 L* (150-450) k/uL Retic Count 3.3 H (0.5-2.0) % PT (9.0-12.0) sec INR (<1.2) BUN 23 H (7-17) mg/dL Creatinine 4.58 H (0.52-1.04) mg/dL Glucose 109 H (74-99) mg/dL Calcium 7.5 L (8.4-10.2) mg/dL Phosphorus (2.5-4.5) mg/dL Total Bilirubin 1.8 H (0.2-1.3) mg/dL Lactate Dehydrogenase 299 L (313-618) U/L Total Protein 5.5 L (6.3-8.2) g/dL Albumin 3.1 L (3.5-5.0) g/dL 01/02/18 01/02/18 Range/Units 07:11 08:34 WBC (3.8-10.6) k/uL RBC (3.80-5.40) m/uL Hgb (11.4-16.0) gm/dL Hct (34.0-46.0) % MCV (80.0-100.0) fL RDW (11.5-15.5) % Plt Count (150-450) k/uL Retic Count (0.5-2.0) % PT 13.1 H (9.0-12.0) sec INR 1.4 H (<1.2) BUN (7-17) mg/dL Creatinine (0.52-1.04) mg/dL Glucose (74-99) mg/dL Calcium (8.4-10.2) mg/dL Phosphorus 5.7 H (2.5-4.5) mg/dL Total Bilirubin (0.2-1.3) mg/dL Lactate Dehydrogenase (313-618) U/L Total Protein (6.3-8.2) g/dL Albumin (3.5-5.0) g/dL Microbiology - Last 24 Hours (Table) 01/01/18 15:57 Blood Culture - Preliminary Blood No Growth after 24 hours 01/02/18 05:50 Urine Culture - Preliminary Urine,Clean Catch Assessment and Plan Plan: Assessment: 1. End-stage renal disease maintained on hemodialysis on a Sunday schedule via left upper extremity AV fistula. 2. Nausea and vomiting. Possibly related to the intraductal biliary dilatation versus viral gastroenteritis. Improved. 3. Amyloidosis maintained on chemotherapy as an outpatient. Patient [facility] in [place]. She has history of bone marrow transplant in 2015. 4. Anemia of chronic kidney disease. Iron deficiency noted. High ferritin level noted. Maintained on Aranesp. 5. Chronic kidney disease mineral bone disease maintained on PhosLo. Phosphorus level above goal at 5.7 this admission. 6. Pancytopenia related to amyloidosis and chemotherapy. Oncology following. Plan: Hemodialysis tomorrow.
[2018-01-03] MEDS ORDERED: FILGRASTIM-SNDZ 480 MCG/0.8 ML SYRINGE SQ SCH (09:15)
[2018-01-03 09:29] LABS: HCT 28.5 % (34.0-46.0); HGB 9.5 gm/dL (11.4-16.0); Hypochromasia Slight; MCH 33.8 pg (25.0-35.0); MCHC 33.2 g/dL (31.0-37.0); MCV 101.9 fL (80.0-100.0); Macrocytosis Slight; Mean Platelet Volume 8.9; RDW 15.9 % (11.5-15.5)
[2018-01-03 09:49] LABS: WBC 0.8 k/uL (3.8-10.6)
[2018-01-03 09:50] LABS: Platelet Count 22 k/uL (150-450)
[2018-01-03 09:54] LABS: Calcium 7.9 mg/dL (8.4-10.2); Potassium 3.9 mmol/L (3.5-5.1)
[2018-01-03 11:24] VITALS: BMI 34.7
[2018-01-03 11:58] LABS: Poikilocytosis (M) Present
--- NOTE | 2018-01-03 12:01 | P.CONS ---
History of Present Illness - Reason for Consult Consult date: 01/03/18 Cirrhosis Requesting physician: Radha Gee - Chief Complaint Nausea vomiting - History of Present Illness 37-year-old female with a history of end-stage renal disease hemodialysis secondary to light chain amyloidosis via kidney biopsy status post bone marrow transplant, thyroid carcinoma, MTHFR gene, nonalcoholic cirrhosis being followed by hepatobiliary specialist at [facility], hepatosplenomegaly, portal hypertension, hemorrhoids. Admitted with intractable nausea vomiting after dialysis. Gallbladder ultrasound hepatic cirrhosis nonocclusive thrombus of the main portal vein mild intrahepatic biliary ductal dilatation new from previous study in June 2017. CBD 0.4 cm. CHD 0.5 cm. Liver length [address] abdomen and pelvis reported esophageal varices, masses splenomegaly, mesenteric mild edema, new ascites, new gastric wall thickening. White count 0.8-1.1. Hemoglobin 9.5-9.8. MCV 98-101. Platelet 16-22. INR 1.4. Total bilirubin 1.8-2.4. AST 20-22. ALT 22-25. APAP 85-119. LDH 299. Denies abdominal pain fever or chills. Denies hematemesis hematochezia or melena. Last chemotherapy treatment few days prior to . Review of Systems Constitutional: Denies fever, chills, sweats, weight gain, or loss. HEENT: Negative for migraines, blurred vision or loss, earaches, drainage, tinnitus, oral mucosal lesions, dysphagia, or odynophagia. CARDIAC: Negative for chest pain, arrhythmias, or palpitation. RESPIRATORY: Negative for shortness of breath, hemoptysis, cough, or sputum production. GI: See HPI for pertinent findings. : Negative for hematuria, urgency, frequency, polyuria, or dysuria. GYNc: Denies possibility of . Negative vaginal discharge. MUSCULOSKELETAL: Negative for muscle aches, swelling, arthritis, and arthralgias. NEUROLOGIC: Negative for stroke or TIA. ENDOCRINE: History of thyroid cancer. SKIN: Negative for rash or itching. PSYCHIATRIC: Negative history for depression and anxiety Past Medical History Past Medical History: Blood Disorder, Cancer, GERD/Reflux, Hyperlipidemia, Hypertension, Pneumonia, Renal Disease, Thyroid Disorder Additional Past Medical History / Comment(s): ESRD-HEMO DYALISIS M/W/FRI, THYROID CANCER WITH THYROIDECTOMY ANDMETS TO LYMPHNODES-RADIOACTIVE IODINE, MTHFR GENE, Amyloidosis-causes low HGB/low platelets-had stem cell transplant July 2014, UTI, LOW GI BLEED, ESOPHAGEAL VARICIES, HEMORRHOIDS, THROMBOSIS R LOWER ARM FISTULA. History of Any Multi-Drug Resistant Organisms: None Reported Past Surgical History: Adenoidectomy, Section, Tonsillectomy, Tubal Ligation Additional Past Surgical History / Comment(s): 08/03/16 EGD/colonoscopy, THYROIDECTOMY AND REMOVED 9 LYMPH NODES REMOVED 4 OF WHICH A WERE POSITIVE FOR CA; OVARIAN CYST SURGERY. THOROCENTESIS June 2014, functional fistula right upper arm, thrombosed fistula R lower arm, BMAs/BXs. Past Anesthesia/Blood Transfusion Reactions: Motion Sickness, Postoperative Nausea & Vomiting (PONV) Additional Past Anesthesia/Blood Transfusion Reaction / Comm: Pt has received blood without reaction. Smoking Status: Never smoker - Past Family History Father Family Medical History: Coronary Artery Disease (CAD), Diabetes Mellitus, Myocardial Infarction (PA) Additional Family Medical History / Comment(s): AT AGE 59-PA Mother Family Medical History: No Reported History Medications and Allergies Home Medications Medication Instructions Recorded Confirmed Type Furosemide [Lasix] 40 mg PO DAILY 04/06/15 12/31/17 History Carvedilol [Coreg*] 12.5 mg PO BID 06/06/16 12/31/17 History rOPINIRole HCL [Requip] 1.5 mg PO HS 06/06/16 12/31/17 History Omeprazole 40 mg PO BID 06/29/17 12/31/17 History Acyclovir [Zovirax] 400 mg PO BID 12/28/17 12/31/17 History Levothyroxine Sodium [Synthroid] 175 mcg PO DAILY 12/28/17 12/31/17 History Allergies Allergy/AdvReac Type Severity Reaction Status Date / Time Sulfa (Sulfonamide Allergy Severe Anaphylaxis Verified 12/31/17 13:10 Antibiotics) Penicillins Allergy Intermediate Rash/Hives/ Verified 12/31/17 13:10 Nausea/Vomi ting Physical Exam Vitals: Vital Signs Temp Pulse Resp BP Pulse Ox 01/03/18 07:00 98.7 F 71 17 114/56 99 01/02/18 23:45 98.1 F 65 16 102/62 100 01/02/18 19:35 105/66 01/02/18 19:34 98.0 F 69 16 88/47 98 01/02/18 17:15 109/66 01/02/18 14:51 98.2 F 67 18 106/57 100 01/02/18 13:47 107/72 01/02/18 13:46 117/72 01/02/18 13:45 106/70 Intake and Output 01/02/18 01/03/18 01/03/18 22:59 06:59 14:59 Intake Total 100 Balance 100 Intake: Oral 100 Other: Voiding Method Bedside Commode Weight 86.183 kg General appearance: The patient is alert, oriented, in no acute distress. HET: Head is normocephalic and atraumatic. Pupils are equal and reactive. Oropharynx is clear without lesions. Neck: Supple without lymphadenopathy. Trachea midline. Heart: S1 S2. Regular rate and rhythm. Lungs: No crackles or wheezes are heard. Abdomen: Soft, nontender, nondistended with bowel sounds. No peritoneal signs. No palpable organomegaly or masses. Extremities: Normal skin color and turgor. No cyanosis, rash, ulceration, clubbing, or edema. Radial and pedal pulses are 2/4 bilaterally. Neurological: No focal deficits. Strength and sensation are grossly intact. Results CBC & Chem 7: 01/03/18 08:34 01/03/18 08:34 Labs: Abnormal Lab Results - Last 24 Hours (Table) 01/03/18 01/03/18 Range/Units 08:34 08:34 WBC 0.8 L* (3.8-10.6) k/uL RBC 2.80 L (3.80-5.40) m/uL Hgb 9.5 L (11.4-16.0) gm/dL Hct 28.5 L (34.0-46.0) % MCV 101.9 H (80.0-100.0) fL RDW 15.9 H (11.5-15.5) % Plt Count 22 L (150-450) k/uL Sodium 135 L (137-145) mmol/L Creatinine 4.23 H (0.52-1.04) mg/dL Glucose 164 H (74-99) mg/dL Calcium 7.9 L (8.4-10.2) mg/dL Microbiology - Last 24 Hours (Table) 01/02/18 05:50 Urine Culture - Final Urine,Clean Catch 01/01/18 15:57 Blood Culture - Preliminary Blood No Growth after [address] scan - abdomen: report reviewed (Dr. Lorenzo) US - abdomen: report reviewed (Dr. Lorenzo) Assessment and Plan (1) Cirrhosis of liver Narrative/Plan: 37-year-old female presents with intractable nausea vomiting after dialysis with a history of end-stage renal disease secondary to primary light chain amyloidosis maintained on chemotherapy [facility] in [place] with underlying pancytopenia, known nonalcoholic liver cirrhosis followed by hepatobiliary speciliast in [place], splenomegaly and radiographic imaging reporting nonocclusive portal vein thrombosis mild intrahepatic biliary dilatation with mild hyperbilirubinemia normal transaminases. Underlying malignancy cannot be excluded. Current Visit: Yes Status: Acute Code(s): K74.60 - UNSPECIFIED CIRRHOSIS OF LIVER SNOMED Code(s): 68903837 (2) Portal vein thrombosis Current Visit: Yes Status: Acute Code(s): I81 - PORTAL VEIN THROMBOSIS SNOMED Code(s): 35333642 (3) ESRD (end stage renal disease) on dialysis Current Visit: Yes Status: Acute Code(s): N18.6 - END STAGE RENAL DISEASE; Z99.2 - DEPENDENCE ON RENAL DIALYSIS SNOMED Code(s): 124229600 (4) Amyloidosis Current Visit: Yes Status: Acute Code(s): E85.9 - AMYLOIDOSIS, UNSPECIFIED SNOMED Code(s): 65340687 (5) Pancytopenia Current Visit: Yes Status: Acute Code(s): D61.818 - OTHER PANCYTOPENIA SNOMED Code(s): 153986867 (6) Hepatosplenomegaly Current Visit: Yes Status: Acute Code(s): R16.2 - HEPATOMEGALY WITH SPLENOMEGALY, NOT ELSEWHERE CLASSIFIED SNOMED Code(s): 31884360 (7) Ascites Current Visit: Yes Status: Acute Code(s): R18.8 - OTHER ASCITES SNOMED Code(s): 346711896 Plan: 1. MRI liver/MRCP. Patient is requesting discharge and would like to have this MRI performed as an outpatient. She plans on following up with her hepatobiliary specialist in [place]. Prescription for MRI given; will discuss with nephrology if she can receive contrast study. 2. CEA/AFP. Hematology consult. 3. Will follow with you. Thank you for this kind referral and the opportunity to participate in the care of your patient. This consultation was discussed with Dr. Lorenzo. The impression and plan of care have been directed as dictated.
--- NOTE | 2018-01-03 17:21 | P.PN ---
Subjective Progress Note Date: 01/03/18 Principal diagnosis: Multiple Myeloma Sondra seen in follow-up today, counts have not shown any recovery although stating she is feeling better. Objective - Vital Signs Vital signs: Vital Signs Temp 98.7 F 01/03/18 07:00 Pulse 71 01/03/18 07:00 Resp 17 01/03/18 07:00 BP 114/56 01/03/18 07:00 Pulse Ox 99 01/03/18 07:00 Intake & Output 01/02/18 01/03/18 01/03/18 18:59 06:59 18:59 Intake Total 100 Balance 100 Intake: Oral 100 Other: Voiding Method Bedside Commode # Voids 1 - Exam General appearance: alert, in no apparent distress Head exam: atraumatic, normocephalic Eye exam: normal appearance, PERRL, EOMI. ENT exam: no Thrush or mucocytis Neck exam:supple, trachea midline No lymphadenopathy Respiratory: normal lung sounds bilaterally Cardiovascular: RRR, S1S2 Abdominal soft, normal bowel sounds. Extremities: normal inspection, AV Fistula LUE Neurological alert, oriented X3, non-focal Psychiatric: normal affect, Calm, Cooperative normal mood Skin: warm, dry, intact, normal color - Labs CBC & Chem 7: 01/03/18 08:34 01/03/18 08:34 Labs: Abnormal Lab Results - Last 24 Hours (Table) 01/02/18 01/03/18 01/03/18 Range/Units 07:11 08:34 08:34 WBC 0.8 L* (3.8-10.6) k/uL RBC 2.80 L (3.80-5.40) m/uL Hgb 9.5 L (11.4-16.0) gm/dL Hct 28.5 L (34.0-46.0) % MCV 101.9 H (80.0-100.0) fL RDW 15.9 H (11.5-15.5) % Plt Count 22 L (150-450) k/uL Sodium 135 L (137-145) mmol/L Creatinine 4.23 H (0.52-1.04) mg/dL Glucose 164 H (74-99) mg/dL Calcium 7.9 L (8.4-10.2) mg/dL Phosphorus 5.7 H (2.5-4.5) mg/dL Microbiology - Last 24 Hours (Table) 01/02/18 05:50 Urine Culture - Final Urine,Clean Catch 01/01/18 15:57 Blood Culture - Preliminary Blood No Growth after 24 hours Assessment and Plan Plan: Assessment and Recommendations: 1. Multiple Myeloma: - Maintained on q2 week Daratunumab, now changed to every 4 weeks - Follows with Dr. Sepulveda and Dr. Ludy MARINO 2. Amyloidosis: 3. Nausea, Vomiting, Diarrhea: - Burk Cultures 4. Pancytopenia - Secondary to Multiple Myeloma Treatment: - I have Discontinued Heparin, No Prophylaxis with platlet count less than 50K - Her Baseline has been 20-30K, 16K today. Monitor closely, transfuse if signs of bleeding. Hemoglobin is currently stable, no intervention required - Initiate Zarxio Daily 5. ESRD - Dialysis M, W, F Aimee Webb, FRANCISCO JAVIER
--- NOTE | 2018-01-04 06:47 | DS ---
DISCHARGE SUMMARY DATE OF SERVICE: 01/03/2018 FINAL DIAGNOSES: 1. Nausea, vomiting and possible acute gastritis. 2. Splenomegaly, possibly hepatic cirrhosis of liver. 3. Possible nonocclusive thrombus in the main portal hepatic vein. 4. Pancytopenia. 5. Hyponatremia. 6. Chronic renal failure on hemodialysis. 7. Chronic renal disease, stage 4. 8. Gastroesophageal reflux disease. 9. Hypertension. 10.Hyperlipidemia. 11.History of pneumonia. 12.History of hypothyroidism. 13.History of thyroid cancer with thyroidectomy. 14.History of cellulitis. 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 16.History of amyloidosis. 17.History of MTHFR mutation. 18.History of anxiety. 19.FULL CODE. DISCHARGE DISPOSITION: The patient will be discharged in stable condition with guarded prognosis. HISTORY OF PRESENT ILLNESS: This 37-year-old woman with a past medical history of multiple medical problems was admitted with nausea and vomiting. Patient was treated symptomatically. Patient improved significantly and Dr. Phillips will be following the patient in the outpatient setting. Seen by multiple consultants including Gastroenterology and Nephrology also. On exam, vitals are stable. CARDIOVASCULAR: S1, S2 muffled. ABDOMEN: Soft. NERVOUS SYSTEM: No focal deficits. DISCHARGE ADVICE: 1. Diet is cardiac. 2. Activity limited until followup. 3. Follow up with Dr. Phillips in 2 to 3 days[address] 4[address] Follow up Dr. Sepulveda and follow up with Dr. Jensen as advised. 5. MRI scan and hepatobiliary specialist followup also. MEDICATIONS: 1. Zovirax 400 mg p.o. b.i.d. 2. Coreg 12.5 mg b.i.d. 3. Lasix 40 mg daily. 4. Synthroid 175 mcg p.o. daily. 5. Omeprazole 40 mg b.i.d. 6. Requip 1.5 mg q.h.s. 7. Tylenol p.r.n. 8. PhosLo 667 t.i.d. p.r.n. 9. Aranesp 40 mcg q.7 days. 10.Zofran 4 mg q.8 p.r.n. Once again, the patient will be discharged in a stable condition with guarded prognosis. MMODL / IJN: [id number] / [facility]
== END 2018-01-03 14:45 | disposition home or self-care (01) | DRG 391 ==
LOC: EC 12:22 → 4SSUR 18:20 → OBSVTOIN 01-02 15:27
PROVIDERS: ADMIT Internal Medicine; ATTEND Internal Medicine
PROC: 5A1D70Z Performance of Urinary Filtration, Intermittent, Less than 6 Hours Per Day (ICD-10-PCS; principal; 2018-01-02)
DX: K29.00 Acute gastritis without bleeding (principal); D61.810 Antineoplastic chemotherapy induced pancytopenia; I81 Portal vein thrombosis; N18.6 End stage renal disease; C90.00 Multiple myeloma not having achieved remission; E85.9 Amyloidosis, unspecified; E87.1 Hypo-osmolality and hyponatremia; I12.0 Hypertensive chronic kidney disease with stage 5 chronic kidney disease or end stage renal disease; I85.00 Esophageal varices without bleeding; K76.6 Portal hypertension; R18.8 Other ascites; Z94.81 Bone marrow transplant status; Z94.84 Stem cells transplant status; D63.1 Anemia in chronic kidney disease; E61.1 Iron deficiency; E78.5 Hyperlipidemia, unspecified; E86.0 Dehydration; E89.0 Postprocedural hypothyroidism; K21.9 Gastro-esophageal reflux disease without esophagitis; K74.60 Unspecified cirrhosis of liver; T45.1X5A Adverse effect of antineoplastic and immunosuppressive drugs, initial encounter; Z79.890 Hormone replacement therapy; Z79.899 Other long term (current) drug therapy; Z82.49 Family history of ischemic heart disease and other diseases of the circulatory system; Z83.3 Family history of diabetes mellitus; Z85.850 Personal history of malignant neoplasm of thyroid; Z87.01 Personal history of pneumonia (recurrent); Z99.2 Dependence on renal dialysis
CPT/HCPCS: 36415; 74177; 76705; 80048; 80053; 81001; 82105; 82150; 82378; 82728; 83540; 83550; 83615; 83690; 84100; 85025; 85045; 85610; 85652; 86140; 87040; 87086; 90935; 96374; 96375; 99285

== ENCOUNTER 2018-01-09 10:08 | Emergency (ER) | payer MEDICARE, BC ==
[2018-01-09] MEDS ORDERED: ACETAMINOPHEN IV (For NPO) 1,000 MG in EMPTY BAG 1 BAG IVPB STA (10:23)
--- NOTE | 2018-01-09 10:28 | ED ---
General Adult HPI - General Chief complaint: Altered Mental Status Stated complaint: ALTERED, FEVER Time Seen by Provider: 01/09/18 10:13 Source: patient, RN notes reviewed Mode of arrival: EMS Limitations: no limitations - History of Present Illness Initial comments: Patient is a pleasant 37-year-old female presenting to the emergency department from dialysis with concerns for altered mental status and fever. Patient states she felt fine last night. Patient did notice some symptoms when she woke this morning. Symptoms are steady. Patient admits that her words are not coming out as she would like them too. Patient does not feel confused. During conversation with the patient she does have occasional garbled speech or inappropriate words. Other times patient is able to speak simple sentences appropriately. Patient was found to have elevated temperature at dialysis and transferred to emergency department. Patient does have history of amyloidosis with end-stage renal disease on hemodialysis. Patient denies cough or chest pain. No abdominal pain. No dysuria. Patient still does make urine a couple times per day. No headache or neck pain. - Related Data Home Medications Medication Instructions Recorded Confirmed Furosemide [Lasix] 40 mg PO DAILY 04/06/15 01/09/18 Carvedilol [Coreg*] 12.5 mg PO BID 06/06/16 01/09/18 Omeprazole 40 mg PO BID 06/29/17 01/09/18 Levothyroxine Sodium [Synthroid] 175 mcg PO DAILY 12/28/17 01/09/18 Atorvastatin [Lipitor] 40 mg PO DAILY 01/09/18 01/09/18 Calcitriol 0.5 mcg PO DAILY 01/09/18 01/09/18 Calcium Carbonate/Vitamin D3 4 cap PO DAILY 01/09/18 01/09/18 [Calcium 600-Vit D3 500 Softgel] Lanthanum Carbonate 1,000 mg PO TID 01/09/18 01/09/18 traZODone HCL [TraZODone HCl] 50 mg PO HS 01/09/18 01/09/18 Previous Rx's Medication Instructions Recorded Calcium Acetate [PhosLo] 667 mg PO TID-W/MEALS #90 cap 01/03/18 Allergies Allergy/AdvReac Type Severity Reaction Status Date / Time Sulfa (Sulfonamide Allergy Severe Anaphylaxis Verified 01/09/18 10:52 Antibiotics) Penicillins Allergy Intermediate Rash/Hives/ Verified 01/09/18 10:52 Nausea/Vomi ting Review of Systems ROS Statement: Those systems with pertinent positive or pertinent negative responses have been documented in the HPI. ROS Other: All systems not noted in ROS Statement are negative. Constitutional: Reports: fever Eyes: Denies: eye pain ENT: Denies: ear pain Respiratory: Denies: cough, dyspnea Cardiovascular: Denies: chest pain, palpitations Endocrine: Denies: fatigue Gastrointestinal: Denies: abdominal pain, nausea, vomiting Genitourinary: Denies: urgency, dysuria, hematuria Skin: Denies: rash Neurological: Denies: headache, weakness, confusion Past Medical History Past Medical History: Blood Disorder, Cancer, GERD/Reflux, Hyperlipidemia, Hypertension, Pneumonia, Renal Disease, Thyroid Disorder Additional Past Medical History / Comment(s): ESRD-HEMO DYALISIS M/W/SUN, THYROID CANCER WITH THYROIDECTOMY ANDMETS TO LYMPHNODES-RADIOACTIVE IODINE, MTHFR GENE, Amyloidosis-causes low HGB/low platelets-had stem cell transplant July 2014, UTI, LOW GI BLEED, ESOPHAGEAL VARICIES, HEMORRHOIDS, THROMBOSIS R LOWER ARM FISTULA. History of Any Multi-Drug Resistant Organisms: None Reported Past Surgical History: Adenoidectomy, Section, Tonsillectomy, Tubal Ligation Additional Past Surgical History / Comment(s): 08/03/16 EGD/colonoscopy, THYROIDECTOMY AND REMOVED 9 LYMPH NODES REMOVED 4 OF WHICH A WERE POSITIVE FOR CA; OVARIAN CYST SURGERY. THOROCENTESIS June 2014, functional fistula right upper arm, thrombosed fistula R lower arm, BMAs/BXs. Past Anesthesia/Blood Transfusion Reactions: Motion Sickness, Postoperative Nausea & Vomiting (PONV) Additional Past Anesthesia/Blood Transfusion Reaction / Comment(s): Pt has received blood without reaction. Past Psychological History: Anxiety Smoking Status: Never smoker - Past Family History Father Family Medical History: Coronary Artery Disease (CAD), Diabetes Mellitus, Myocardial Infarction (SC) Additional Family Medical History / Comment(s): AT AGE 59-SC Mother Family Medical History: No Reported History General Exam Limitations: no limitations General appearance: alert, in no apparent distress Head exam: Present: atraumatic Eye exam: Present: normal appearance, PERRL, EOMI. Absent: nystagmus ENT exam: Present: normal oropharynx Neck exam: Present: normal inspection. Absent: tenderness, meningismus Respiratory exam: Present: normal lung sounds bilaterally Cardiovascular Exam: Present: regular rate, normal rhythm, systolic murmur GI/Abdominal exam: Present: soft. Absent: distended, tenderness, guarding, rebound, rigid Extremities exam: Present: normal inspection. Absent: pedal edema, calf tenderness Neurological exam: Present: alert, oriented X3, CN II-XII intact. Absent: motor sensory deficit Expanded Neurological exam: Present: protecting the airway Patient oriented to: Present: person, place, time Speech: Present: expressive aphasia Cranial nerves: EOM's Intact: Normal, Facial Sensation: Normal Cerebellar function: Finger to Nose: Normal Sensory exam: Upper Extremity Light Touch: Normal, Lower Extremity Light Touch: Normal Motor strength exam: RUE: 5, LUE: 5, RLE: 5, LLE: 5 Eye Response: (4) open spontaneously Motor Response: (6) obeys commands Verbal Response: (5) oriented Psychiatric exam: Present: normal affect, normal mood Skin exam: Present: normal color Course Vital Signs 01/09/18 01/09/18 01/09/18 10:14 10:49 11:45 Temperature 102.7 F H 103 F H Pulse Rate 16 L 85 87 Respiratory 17 18 Rate Blood Pressure 116/50 125/62 O2 Sat by Pulse 98 99 Oximetry 01/09/18 12:27 Temperature 100.3 F H Pulse Rate 96 Respiratory 18 Rate Blood Pressure 110/47 O2 Sat by Pulse 99 Oximetry - Reevaluation(s) Reevaluation #1: 01/09/18 10:38 Case was discussed in detail with neural interventionalis doctor and dario who does not feel patient is a candidate for code stroke or TPA. He feels patient should undergo computed tomography scan and should also undergo MRI of the brain as an inpatient with concerns for encephalopathy. 01/09/18 12:29 Call was received from radiologist with concern for multiple lesions throughout the brain that could be hemorrhagic metastasis however associated nausea and with amyloidosis is not excluded. There is some edema. There is also some concern for some subarachnoid bleed in the right frontal region. Case was discussed with Dr. Shay with oncology as well as Shannan gaxiola with oncology who both review the chart. They are agreeable with platelet transfusion. They state there is a questionable diagnosis of myeloma and an unclear if treatment has been started or not. Patient reevaluated and unchanged. Patient and family are updated. Patient has been to several facilities with her medical problems including [facility] and [facility] as well as our facility. 01/09/18 12:33 Family has decided that they would prefer transfer to [facility]. Patient is in agreement. Case was discussed in detail with Dr. capps, who states they do have services available to accept the patient and will accept patient. He is in agreement with providing platelets prior to transfer. Blood bank was called and states platelets will be available to us and less than one half hour. It does seem is what this time to wait for transfer for patient to have platelets to potentially help with bleeding. Patient will need further evaluation including neurosurgeon evaluation and MRI of the brain. EKG Findings - EKG Comments: EKG Findings:: Normal sinus rhythm 87. SC 122. QRS 90. QT 370. QTc 454. Normal axis. Normal QRS. No acute ST change. Medical Decision Making - Lab Data Result diagrams: 01/09/18 10:28 01/09/18 10:28 Lab Results 01/09/18 01/09/18 01/09/18 Range/Units 10:28 10:28 10:28 WBC 4.3 (3.8-10.6) k/uL RBC 3.20 L (3.80-5.40) m/uL Hgb 10.8 L (11.4-16.0) gm/dL Hct 32.6 L (34.0-46.0) % MCV 101.9 H (80.0-100.0) fL MCH 33.8 (25.0-35.0) pg MCHC 33.2 (31.0-37.0) g/dL RDW 17.2 H (11.5-15.5) % Plt Count 18 L* (150-450) k/uL Neutrophils % 92 % Lymphocytes % 3 % Monocytes % 4 % Eosinophils % 0 % Basophils % 0 % Neutrophils # 4.0 (1.3-7.7) k/uL Lymphocytes # 0.1 L (1.0-4.8) k/uL Monocytes # 0.2 (0-1.0) k/uL Eosinophils # 0.0 (0-0.7) k/uL Basophils # 0.0 (0-0.2) k/uL Anisocytosis Slight Macrocytosis Moderate PT (9.0-12.0) sec INR (<1.2) APTT (22.0-30.0) sec Sodium 137 (137-145) mmol/L Potassium 3.3 L (3.5-5.1) mmol/L Chloride 94 L (98-107) mmol/L Carbon Dioxide 30 (22-30) mmol/L Anion Gap 13 mmol/L BUN 17 (7-17) mg/dL Creatinine 3.26 H (0.52-1.04) mg/dL Est GFR (CKD-EPI)AfAm 20 (>60 ml/min/1.73 sqM) Est GFR (CKD-EPI)NonAf 17 (>60 ml/min/1.73 sqM) Glucose 162 H (74-99) mg/dL Plasma Lactic Acid Zion (0.7-2.0) mmol/L Calcium 8.6 (8.4-10.2) mg/dL Total Bilirubin 3.7 H (0.2-1.3) mg/dL AST 18 (14-36) U/L ALT 19 (9-52) U/L Alkaline Phosphatase 115 (38-126) U/L Total Creatine Kinase 22 L (30-135) U/L CK-MB (CK-2) <0.2 (0.0-2.4) ng/mL CK-MB (CK-2) Rel Index Troponin I 0.122 H* (0.000-0.034) ng/mL Total Protein 6.0 L (6.3-8.2) g/dL Albumin 3.5 (3.5-5.0) g/dL 01/09/18 01/09/18 Range/Units 10:28 10:28 WBC (3.8-10.6) k/uL RBC (3.80-5.40) m/uL Hgb (11.4-16.0) gm/dL Hct (34.0-46.0) % MCV (80.0-100.0) fL MCH (25.0-35.0) pg MCHC (31.0-37.0) g/dL RDW (11.5-15.5) % Plt Count (150-450) k/uL Neutrophils % % Lymphocytes % % Monocytes % % Eosinophils % % Basophils % % Neutrophils # (1.3-7.7) k/uL Lymphocytes # (1.0-4.8) k/uL Monocytes # (0-1.0) k/uL Eosinophils # (0-0.7) k/uL Basophils # (0-0.2) k/uL Anisocytosis Macrocytosis PT 12.4 H (9.0-12.0) sec INR 1.3 H (<1.2) APTT 27.6 (22.0-30.0) sec Sodium (137-145) mmol/L Potassium (3.5-5.1) mmol/L Chloride (98-107) mmol/L Carbon Dioxide (22-30) mmol/L Anion Gap mmol/L BUN (7-17) mg/dL Creatinine (0.52-1.04) mg/dL Est GFR (CKD-EPI)AfAm (>60 ml/min/1.73 sqM) Est GFR (CKD-EPI)NonAf (>60 ml/min/1.73 sqM) Glucose (74-99) mg/dL Plasma Lactic Acid Zion 1.8 (0.7-2.0) mmol/L Calcium (8.4-10.2) mg/dL Total Bilirubin (0.2-1.3) mg/dL AST (14-36) U/L ALT (9-52) U/L Alkaline Phosphatase (38-126) U/L Total Creatine Kinase (30-135) U/L CK-MB (CK-2) (0.0-2.4) ng/mL CK-MB (CK-2) Rel Index Troponin I (0.000-0.034) ng/mL Total Protein (6.3-8.2) g/dL Albumin (3.5-5.0) g/dL Critical Care Time Critical Care Time: Yes Total Critical Care Time: 34 Disposition Clinical Impression: Brain lesion, Intracranial hemorrhage Disposition: OTHER INSTITUTION NOT DEFINED Is patient prescribed a controlled substance at d/c from ED?: No Referrals: None,Stated [Primary Care Provider] - 1-2 days Time of Disposition: 12:36 - Out of Hospital Transfer - Req. Specs Out of Hospital Transfer - Requested Specifics: Other Emergency Center
[2018-01-09 10:55] LABS: Anisocytosis Slight; Basophils % (A) 0 %; Eosinophils % (A) 0 %; HCT 32.6 % (34.0-46.0); HGB 10.8 gm/dL (11.4-16.0); Lymphocytes # (A) 0.1 k/uL (1.0-4.8); Lymphocytes % (A) 3 %; MCH 33.8 pg (25.0-35.0); MCHC 33.2 g/dL (31.0-37.0); MCV 101.9 fL (80.0-100.0); Macrocytosis Moderate; Mean Platelet Volume 8.8; Monocytes # (A) 0.2 k/uL (0-1.0); Monocytes % (A) 4 %; Neutrophils % (A) 92 %; RDW 17.2 % (11.5-15.5); WBC 4.3 k/uL (3.8-10.6)
[2018-01-09 10:59] LABS: INR 1.3 (<1.2); Partial Thromboplastin Time 27.6 sec (22.0-30.0); Prothrombin Time 12.4 sec (9.0-12.0)
[2018-01-09 11:01] LABS: Albumin 3.5 g/dL (3.5-5.0); Calcium 8.6 mg/dL (8.4-10.2); Potassium 3.3 mmol/L (3.5-5.1); Total Bilirubin 3.7 mg/dL (0.2-1.3)
[2018-01-09 11:02] LABS: Platelet Count 18 k/uL (150-450)
[2018-01-09 11:09] LABS: Creatine Kinase 22 U/L (30-135)
[2018-01-09 11:23] LABS: Creatine Kinase MB <0.2 ng/mL (0.0-2.4)
--- NOTE | 2018-01-09 11:27 | XR ---
EXAMINATION TYPE: XR chest 2V DATE OF EXAM: 01/09/2018 COMPARISON: 12/28/2017 HISTORY: Chest pain TECHNIQUE: Frontal and lateral views of the chest are obtained. FINDINGS: There is no focal air space opacity. Chronic elevation left hemidiaphragm. No evidence for pneumothorax. No pleural effusion. The cardiac silhouette size is within normal limits. The osseous structures are grossly intact. IMPRESSION: 1. No acute cardiopulmonary process.
[2018-01-09 11:34] LABS: Troponin I 0.122 ng/mL (0.000-0.034)
[2018-01-09] MEDS: SODIUM CHLORIDE 0.9% 500 ML 500 ML IV SCH ×2 (11:39→11:44)
[2018-01-09 11:54] VITALS: RESP 18
--- NOTE | 2018-01-09 12:14 | CT ---
EXAMINATION TYPE: CT brain wo con DATE OF EXAM: 01/09/2018 COMPARISON: None HISTORY: 37-year-old female confusion, altered mental status TECHNIQUE: Examination was done in axial plane without intravenous contrast. Coronal and sagittal r econstructions performed. CT DLP: 1054.4 mGycm Automated exposure control for dose reduction was used. FINDINGS: Multifocal round hyperintense lesions are present especially at the maloney-white matter interfaces but also in the periventricular region, left basal ganglia, right thalamus, and right middle cerebellar p eduncle. Lesions show varying degrees of surrounding vasogenic edema and measure up to 1.6 cm., Appro ximately 30 lesions on each side. No mass effect or midline shift. No hydrocephalus. No effacement of basal subarachnoid cisterns. Ther e is 2 mm of cerebellar tonsillar ectopia. Some linear hyperdensity along the anterior inferior right frontal lobe could represent some subtle s ubarachnoid blood. Otherwise, no other extra-axial fluid collection. Paranasal sinuses and mastoid air cells are well pneumatized. Rightward nasal septal deviation. IMPRESSION: 1. Multifocal round hyperdense lesions throughout both cerebral hemispheres and also within the right middle cerebellar peduncle measuring up to 1.6 cm showing varying degrees of mild surrounding vasoge jasiel edema. Hemorrhagic metastases not excluded. Multifocal acute bleeds in the setting of amyloid sharonda roangiopathy would be somewhat unusual. Further clinical correlation and workup recommended. No signi ficant mass effect or midline shift. 2. Additionally, there may be a focus of trace subarachnoid blood anterior floor of the right frontal lobe. Critical findings called to Dr. Romano in the ER at 12:11 PM.
[2018-01-09 12:29] VITALS: BP 110/47; PULSE 96; TEMP 100.3
[2018-01-09 13:07] LABS: Appearance,Urine Clear (Clear); Bacteria,Urine Rare /hpf; Bilirubin,Urine Negative (Negative); Blood,Urine Negative (Negative); Color,Urine Yellow; Glucose,Urine (UA) 4+ (Negative); Ketones,Urine Negative (Negative); Leukocyte Esterase,Urine Negative (Negative); Nitrite,Urine Negative (Negative); Protein,Urine 2+ (Negative); RBC,Urine <1 /hpf (0-5); Specific Gravity,Urine 1.006 (1.001-1.035); Urobilinogen,Urine <2.0 mg/dL (<2.0); WBC,Urine 2 /hpf (0-5)
== END 2018-01-09 13:09 | disposition other institution (70) ==
LOC: EC 10:08
DX: I62.9 Nontraumatic intracranial hemorrhage, unspecified (principal); G93.9 Disorder of brain, unspecified; K21.9 Gastro-esophageal reflux disease without esophagitis; E78.5 Hyperlipidemia, unspecified; I12.0 Hypertensive chronic kidney disease with stage 5 chronic kidney disease or end stage renal disease; N18.6 End stage renal disease; I73.9 Peripheral vascular disease, unspecified; E07.9 Disorder of thyroid, unspecified; F41.9 Anxiety disorder, unspecified; Z79.899 Other long term (current) drug therapy; Z88.0 Allergy status to penicillin; Z88.2 Allergy status to sulfonamides; Z99.2 Dependence on renal dialysis; Z85.850 Personal history of malignant neoplasm of thyroid; Z90.89 Acquired absence of other organs; Z79.890 Hormone replacement therapy; Z94.84 Stem cells transplant status
CPT/HCPCS: 99291 ×2; 96365 ×2; 96361 ×2; 36415; 93005; 86900; 86901; 80053; 82550; 82553; 83605; 84484; 85025; 85610; 85730; 86850; 81001; 87040; 87086; 87150; 71046; 70450; P9037; J0131; 87077; 87186